=== PATIENT | male | born 1960 | race Caucasian/White ===

== ENCOUNTER 2017-01-22 10:38 | Observation (INO) | payer OTHER ==
[2017-01-22] MEDS ORDERED: NS 1,000 ML IV ONE (10:54)
--- NOTE | 2017-01-22 10:54 | EDPHY ---
H & P Stated Complaint: ETOH Time Seen by Provider: 01/22/17 10:40 HPI/ROS: This patient complains of generalized weakness he also reports lightheadedness and felt that his heart rate was fast at home. He called EMS for transport here and expresses a desire to go to alcohol detox program. He admits drinking a qt of whiskey a day and denies any recent changes in the amount. He has the impression that he is detoxing although he reports his last alcohol intake was around midnight. He is transported here by EMS for further evaluation. He reports mild periumbilical abdominal discomfort associated with nausea and dry heaves. He also reports decreased appetite the past few days. He states the abdominal discomfort is mild in intensity and does not radiate. ROS: Constitutional: No recent fevers or chills. Generalized weakness as above otherwise negative HEENT: No recent URI symptoms. Neuro: No numbness tingling or focal weakness.He denies any headache. No recent head injury. Musculoskeletal: No neck back or extremity pain. Pulmonary: He reports mild chronic dyspnea that he attributes to smoking and a chronic smoker's cough that is unchanged recently. No pleuritic pain. Cardiovascular: No chest pain. Mild lightheadedness as above. GI: He reports dark loose stools recently. : No urinary symptoms. He does report darker urine than usual however. Integumentary: No skin rash Endocrine: No complaints Complete review of symptoms is otherwise negative. Source: Patient Exam Limitations: No limitations - Personal History Current Tetanus/Diphtheria Vaccine: No - Medical/Surgical History Hx Asthma: No Hx Chronic Respiratory Disease: No Hx Diabetes: No Hx Cardiac Disease: Yes Hx Renal Disease: No Hx Cirrhosis: No Hx Alcoholism: Yes Hx HIV/AIDS: No Hx Splenectomy or Spleen Trauma: No Other PMH: HTN, ETOH, CVA , hypercholesterolemia - Family History Significant Family History: Heart disease - Social History Smoking Status: Heavy smoker Alcohol Use: Heavy (1 qt of whiskey a day) Drug Use: None - Physical Exam Exam: General Appearance: Alert, no distress. Eyes: Pupils equal and round no pallor or injection. ENT, Mouth: Mucous membranes moist. Positive alcohol halitosis Respiratory: There are no retractions, lungs are clear to auscultation. Cardiovascular: Regular rate and rhythm. Gastrointestinal: Abdomen is soft and nontender, no masses, bowel sounds normal. Back: No CVA tenderness Neurological: GCS 15 with no focal deficits appreciated. Skin: Warm and dry, no rashes. Musculoskeletal: Neck is supple nontender. Extremities are symmetrical, full range of motion. Psychiatric: Mood and affect normal DIFFERENTIAL DIAGNOSIS: After history and physical exam differential diagnosis was considered for dehydration, alcohol intoxication, metabolic disarray, hepatitis, pancreatitis, coronary syndrome/AK, dysrhythmia Constitutional: Initial Vital Signs Temperature (C) 37.0 C 01/22/17 10:38 Heart Rate 86 01/22/17 10:38 Respiratory Rate 18 01/22/17 10:38 Blood Pressure 107/75 01/22/17 10:38 O2 Sat (%) 92 01/22/17 10:38 O2 Delivery Mode Room Air Allergies/Adverse Reactions: No Known Allergies Allergy (Unverified 01/22/17 10:47) Home Medications: Medication Instructions Recorded Amlodipine Besylate 01/22/17 HCTZ (*) 01/22/17 Labetalol HCl 01/22/17 Medical Decision Making - Diagnostics EKG Interpretation: 12 lead EKG performed at 11:00 a.m. indication generalized weakness with risk factors for coronary disease rule out AK reveals sinus rhythm at 81 Intervals: Normal with exception of prolonged QTC of [address] [place]: Normal throughout ST segments are notable for T-wave inversions in leads V2 in V3 Overall assessment sinus rhythm, prolonged QT, anterior T-wave abnormalities- cannot rule out anterior ischemia. When compared to an old EKG faxed from [facility] dated 01/07/[address] depression is a new finding. Repeat EKG performed at 11:46 a.m. indication-status post nitropaste evaluate for interval change Sinus rhythm at 77 Intervals: Normal exception of a persistently prolonged QTC at [address] segments-persistent anterior ST depression Overall assessment sinus rhythm no significant interval change from initial EKG. ED Course/Re-evaluation: IV normal saline bolus Alcohol breathalyzer was 0.31 Given his coronary disease risk factors and abnormal EKG, patient is placed on a monitor and given aspirin 324. We have no old EKG for comparison here but will contact [facility] in attempt to be acquired an old EKG for comparison 12 lead EKG from [facility] arrived by fax at 11:25 a.m. and review of this EKG dated 01/07/2014 reveals normal sinus rhythm with normal ST segments including the anterior leads and no ST depression. Given this finding along with the patient's risk factors and current weakness, patient is treated with 0.5 inch nitropaste the plan for admission for potential cardiac ischemia as cause of his current symptoms. A review of his labs reveals minimal macrocytic anemia consistent with alcohol abuse, mild elevation of his LFTs consistent with alcoholic hepatitis, normal lipase, normal troponin Discussion: Patient with a HEART score of [address] depression on EKG, age and cardiac risk factors (smoker, high chol, + fam hx) warranting admission for further evaluation of his generalized weakness, feeling of racing heart lightheadedness. The patient also has alcohol abuse and intoxication currently. I spoke with Aniyah Hung with the hospitalist groups who accepts this patient for admission to [facility] telemetry to Dr. Fisher A bed is requested 11:57 a.m. The patient remain hemodynamically stable without further complaints except for mild tremor treated with Ativan 1 mg IV. At 1300 EMS to transport the patient to telemetry bed at [facility] for further workup and treatment. - Data Points Laboratory Results: Laboratory Results 01/22/17 10:55 01/22/17 10:55 01/22/17 01/22/17 01/22/17 10:55 10:55 10:55 WBC 6.40 10^3/uL 10^3/uL (3.80-9.50) RBC 4.26 10^6/uL L 10^6/uL (4.40-6.38) Hgb 16.1 g/dL g/dL (13.7-17.5) Hct 43.5 % % (40.0-51.0) MCV 102.1 fL H fL (81.5-99.8) MCH 37.8 pg H pg (27.9-34.1) MCHC 37.0 g/dL H g/dL (32.4-36.7) RDW 13.3 % % (11.5-15.2) Plt Count 135 10^3/uL L 10^3/uL (150-400) MPV 10.1 fL fL (8.7-11.7) Neut % (Auto) 69.8 % % (39.3-74.2) Lymph % (Auto) 20.8 % % (15.0-45.0) [place] % (Auto) 7.0 % % (4.5-13.0) Eos % (Auto) 1.3 % % (0.6-7.6) Baso % (Auto) 0.8 % % (0.3-1.7) Nucleat RBC Rel Count 0.0 % % (0.0-0.2) Absolute Neuts (auto) 4.47 10^3/uL 10^3/uL (1.70-6.50) Absolute Lymphs (auto) 1.33 10^3/uL 10^3/uL (1.00-3.00) Absolute Monos (auto) 0.45 10^3/uL 10^3/uL (0.30-0.80) Absolute Eos (auto) 0.08 10^3/uL 10^3/uL (0.03-0.40) Absolute Basos (auto) 0.05 10^3/uL 10^3/uL (0.02-0.10) Absolute Nucleated RBC 0.00 10^3/uL 10^3/uL (0-0.01) Immature Gran % 0.3 % % (0.0-1.1) Immature Gran # 0.02 10^3/uL 10^3/uL (0.00-0.10) Sodium 136 mEq/L mEq/L (134-144) Potassium 3.5 mEq/L mEq/L (3.5-5.2) Chloride 91 mEq/L L mEq/L (97-110) Carbon Dioxide 20 mEq/l L mEq/l (22-31) Anion Gap 25 mEq/L H mEq/L (8-16) BUN 12 mg/dL mg/dL (7-23) Creatinine 1.1 mg/dL mg/dL (0.7-1.3) Estimated GFR > 60 Glucose 72 mg/dL mg/dL (70-100) Calcium 8.4 mg/dL L mg/dL (8.5-10.4) Total Bilirubin 2.5 mg/dL H mg/dL (0.1-1.4) Conjugated Bilirubin 1.6 mg/dL H mg/dL (0.0-0.5) Unconjugated Bilirubin 0.9 mg/dL mg/dL (0.0-1.1) AST 234 IU/L H IU/L (17-59) ALT 154 IU/L H IU/L (21-72) Alkaline Phosphatase 67 IU/L IU/L (38-126) Troponin I 0.019 ng/mL ng/mL (0.000-0.034) Total Protein 6.7 g/dL g/dL (6.3-8.2) Albumin 4.2 g/dL g/dL (3.5-5.0) Lipase 53 IU/L IU/L (23-300) Medications Given: Discontinued Medications Aspirin (Aspirin) 324 mg PO EDNOW ONE Stop: 01/22/17 11:04 Last Admin: 01/22/17 11:09 Dose: 324 mg Sodium Chloride (Ns) 1,000 mls @ 0 mls/hr IV EDNOW ONE; Wide Open PRN Reason: Protocol Stop: 01/22/17 10:55 Last Admin: 01/22/17 11:09 Dose: 1,000 mls Lorazepam (Ativan Injection) 1 mg IVP EDNOW ONE Stop: 01/22/17 12:00 Last Admin: 01/22/17 12:02 Dose: 1 mg Nitroglycerin (Nitro-Bid 2%) 0.5 inch TP EDNOW ONE Stop: 01/22/17 11:25 Last Admin: 01/22/17 11:28 Dose: 0.5 inch Departure - Departure Disposition: [facility] Inpatient Acute Clinical Impression: Generalized weakness, EKG abnormality, Alcohol abuse Alcohol intoxication Qualifiers: Complication of substance-induced condition: uncomplicated Qualified Code(s): F10.920 - Alcohol use, unspecified with intoxication, uncomplicated Alcoholic hepatitis Qualifiers: Ascites presence: without ascites Qualified Code(s): K70.10 - Alcoholic hepatitis without ascites Condition: Good Referrals: Patient,NotPresent [Primary Care Provider] - As per Instructions
[2017-01-22 10:59] LABS: % IMMATURE GRANULYOCYTES 0.3 % (0.0-1.1); ABSOLUTE IMMATURE GRANULOCYTES 0.02 10^3/uL (0.00-0.10); ADD DIFF? NO; ADD MORPH? NO; ADD SCAN? NO; ATYPICAL LYMPHOCYTE FLAG 0 (0-99); FRAGMENT RBC FLAG 0 (0-99); HEMATOCRIT 43.5 % (40.0-51.0); HEMOGLOBIN 16.1 g/dL (13.7-17.5); LEFT SHIFT FLG 0 (0-99); LIPEMIA HEMOLYSIS FLAG 90 (0-99); MEAN CELL HEMOGLOBIN 37.8 pg (27.9-34.1); MEAN CELL VOLUME 102.1 fL (81.5-99.8); MEAN PLATELET VOLUME 10.1 fL (8.7-11.7); PLATELET CLUMPS FLAG 20 (0-99); PLATELET COUNT 135 10^3/uL (150-400); RED BLOOD CELL COUNT 4.26 10^6/uL (4.40-6.38); RED CELL DISTRIBUTION WIDTH 13.3 % (11.5-15.2)
--- NOTE | 2017-01-22 11:02 | CPEKG ---
Heart Rate: 81 RR Interval: 741 P-R Interval: 156 QRSD Interval: 94 QT Interval: 416 QTC Interval: 483 P [place]: 75 QRS [place]: 63 T Wave [place]: 67 EKG Severity - ABNORMAL ECG - EKG Impression: SINUS RHYTHM EKG Impression: LOW VOLTAGE IN FRONTAL LEADS EKG Impression: NONSPECIFIC T ABNORMALITIES, ANTERIOR LEADS EKG Impression: BORDERLINE PROLONGED QT INTERVAL Electronically Signed By: Ervin Schmitt 22-Jan-2017 11:05:57
[2017-01-22] MEDS ORDERED: ASPIRIN 81 MG CHEWABLE TAB PO ONE (11:03)
[2017-01-22 11:15] LABS: ALANINE AMINOTRANSFERASE 154 IU/L (21-72); ALBUMIN 4.2 g/dL (3.5-5.0); ALKALINE PHOSPHATASE 67 IU/L (38-126); ANION GAP 25 mEq/L (8-16); ASPARTATE AMINOTRANSFERASE 234 IU/L (17-59); BILIRUBIN,TOTAL 2.5 mg/dL (0.1-1.4); CALCIUM 8.4 mg/dL (8.5-10.4); CARBON DIOXIDE 20 mEq/l (22-31); CHLORIDE 91 mEq/L (97-110); CREATININE 1.1 mg/dL (0.7-1.3); GLOMERULAR FILTRATION RATE > 60; GLUCOSE 72 mg/dL (70-100); POTASSIUM 3.5 mEq/L (3.5-5.2); SODIUM 136 mEq/L (134-144); TOTAL PROTEIN 6.7 g/dL (6.3-8.2)
[2017-01-22 11:22] LABS: BILIRUBIN-CONJUGATED 1.6 mg/dL (0.0-0.5); BILIRUBIN-UNCONJUGATED 0.9 mg/dL (0.0-1.1)
[2017-01-22] MEDS ORDERED: NITROGLYCERIN 2% 1 GM PACKET TP ONE (11:24)
--- NOTE | 2017-01-22 11:49 | CPEKG ---
Heart Rate: 77 RR Interval: 779 P-R Interval: 160 QRSD Interval: 94 QT Interval: 440 QTC Interval: 499 P [place]: 73 QRS [place]: 51 T Wave [place]: 59 EKG Severity - ABNORMAL ECG - EKG Impression: SINUS RHYTHM EKG Impression: NONSPECIFIC T ABNORMALITIES, ANTERIOR LEADS EKG Impression: BORDERLINE PROLONGED QT INTERVAL Electronically Signed By: Jaya Pichardo 24-Jan-2017 09:09:21
[2017-01-22] MEDS ORDERED: LORazepam 2 MG/ML INJ IVP ONE (11:59)
[2017-01-22] MEDS ORDERED: NICOTINE 21 MG/24 HR PATCH TD PRN (14:33)
[2017-01-22] MEDS ORDERED: ACETAMINOPHEN 500 MG TAB PO PRN (14:37)
[2017-01-22] MEDS ORDERED: ONDANSETRON 4 MG/2 ML VIAL IVP PRN (14:37)
[2017-01-22] MEDS ORDERED: PROMETHAZINE HCL 25 MG/ML INJ IVP PRN (14:37)
[2017-01-22] MEDS ORDERED: NS 1,000 ML IV SCH (14:45)
[2017-01-22] MEDS: LORazepam 2 MG/ML INJ IVP PRN (14:51)
--- NOTE | 2017-01-22 15:30 | GHP ---
[f rep st] HISTORY AND PHYSICAL DATE OF ADMISSION: 01/22/2017 CHIEF COMPLAINT: Dizziness and inability to walk, alcohol withdrawal, EKG changes. HISTORY OF PRESENT ILLNESS: The patient is a 56-year-old male, who drinks heavily, 1 quart of whiskey per day for the last 2 years. He normally stops drinking around midnight every night and wakes up in the morning and has withdrawal by 10 a.m. already, but he does go to work, gets through the day at work, and buys another quart of whiskey on his way home from work and drinks it until late night. He woke up this morning, and his tremors were much worse than normal. He felt very dizzy, and he could not walk. He overall has not been doing well lately. He has recently had a 25 pounds unintentional weight loss. He has had minimal oral intake for the last couple of days, because he does not have any appetite, and every time he prepares food, it just suddenly looks unappealing and he does not eat it. He has had chronic diarrhea for the last couple of years, and has never had a GI workup or colonoscopy. He has daily chest tightness, but this is also associated with chest congestion and daily dry heaving. PAST MEDICAL HISTORY: 1. Hypertension. 2. Hyperlipidemia. 3. History of stroke with residual speech deficits. MEDICATIONS: Please see computer record for full detailed list. ALLERGIES: No known drug allergies, but he is statin intolerant. SOCIAL HISTORY: Smokes 1 pack of tobacco per day. Drinks 1 quart of whiskey per day and has for the last 2 years. He lives alone. 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 REVIEW OF SYSTEMS: Complete review of systems obtained. Review of systems is negative regarding constitutional, HEENT, GI, pulmonary, cardiovascular, , hematology, skin, musculoskeletal, endocrine, psych, except for positives and negatives as noted in HPI. FAMILY HISTORY: Mother had an WA in her 50s and survived until a massive cardiac arrest killed her at age 75. Father was a heavy smoker and of COPD. PHYSICAL EXAMINATION: GENERAL: Well-developed, well-nourished male, in no acute distress. VITAL SIGNS: Temperature 37.0, pulse 76, blood pressure 136/88, saturating 96% on room air. EYES: Normal conjunctivae. Pupils equal, round and react to light. ENT: Normal ears and nose. Hearing intact. Normal lips and teeth. Oropharynx moist. NECK: Trachea midline. No thyromegaly. CHEST: Normal respiratory effort. LUNGS: Clear to auscultation bilaterally. CARDIOVASCULAR: Regular rate and rhythm. No murmur. No lower extremity edema. ABDOMEN: Soft, nontender. No hepatosplenomegaly. SKIN: Warm, dry, intact, without rash. MUSCULOSKELETAL: No cyanosis or clubbing. Strength 5/5 upper and lower extremities. NEUROLOGIC: Cranial nerves intact. Normal sensation to light touch. PSYCH: Alert and oriented x3. Normal affect. Normal judgment and insight. Normal memory. LABORATORY DATA: White count 6.4, hematocrit 43.5, platelets 135, MCV is 102. Sodium 136, potassium 3.5, chloride 91, bicarb 20, BUN 12, creatinine 1.1, glucose 72. Total bili 2.5, AST 234, ALT 154. Troponin is negative. Lipase is 53. EKG viewed by me, my personal interpretation is deep anterior T-wave inversions. ASSESSMENT/PLAN: 1. Alcohol withdrawal. We will start him on IV thiamine, as he has had very poor oral intake recently. We will place him on a CIPA protocol with p.r.n. benzodiazepines. 2. EKG changes with daily chest tightness. His troponin is negative. He has multiple risk factors, including hypertension, hyperlipidemia, family history, and tobacco abuse. We will follow serial troponins and EKGs. If they remain unchanged, we will schedule for stress test in the morning, as long as his alcohol withdrawal does not become severe. 3. Increased LFTs. The pattern is very consistent with his alcohol abuse. We will check an abdominal ultrasound and screen him for hepatitis C. 4. Unintentional weight loss. I suspect this is due to decreased oral intake, as a result of his heavy alcohol use. We will also check a chest x-ray and a TSH. He also reports daily nausea, vomiting and diarrhea, and has never had a GI workup, including age appropriate colon cancer screening. This could be considered when he is otherwise medically stable. 5. Dizziness and weakness. This became acutely worse this morning. It sounds like he woke up with these symptoms, and he subsequently decided to quit drinking as these symptoms were scaring him, and so therefore, potentially something acute going on. I will check a head CT. He does have a history of a previous stroke and does not appear to be on a daily aspirin or statin drug, which does put him at risk for recurrence. Could consider an MRI, depending on how he otherwise does clinically. 6. Tobacco dependence. We will place on nicotine patch. 7. Hypertension. Continue his usual Norvasc, hydrochlorothiazide, and labetalol. CODE STATUS: Full. ADMISSION STATUS: We will admit to observation, although, he has so much going on, unless everything comes together nicely by tomorrow morning, high risk for needing inpatient stay. DVT PROPHYLAXIS: He is high risk, we will place him on subcu Lovenox. /[id number]/MODL MTDD
[2017-01-22] MEDS: THIAMINE HCL 500 MG in NS 100 ML IV SCH (16:19)
[2017-01-22] MEDS: chlordiazePOXIDE 25 MG CAP PO PRN ×2 (19:44→20:43)
[2017-01-22] MEDS: LABETALOL HCL 200 MG TAB PO SCH (19:45)
[2017-01-22] MEDS: ZOLPIDEM TARTRATE 5 MG TAB PO PRN (20:42)
[2017-01-23] MEDS: LORazepam 2 MG/ML INJ IVP PRN ×5 (03:38→20:39)
[2017-01-23 04:03] LABS: % IMMATURE GRANULYOCYTES 0.4 % (0.0-1.1); ABSOLUTE IMMATURE GRANULOCYTES 0.02 10^3/uL (0.00-0.10); ABSOLUTE NRBC COUNT 0.04 10^3/uL (0-0.01); ADD DIFF? NO; ADD MORPH? NO; ADD SCAN? NO; ATYPICAL LYMPHOCYTE FLAG 0 (0-99); FRAGMENT RBC FLAG 0 (0-99); HEMATOCRIT 36.8 % (40.0-51.0); HEMOGLOBIN 13.2 g/dL (13.7-17.5); LEFT SHIFT FLG 0 (0-99); LIPEMIA HEMOLYSIS FLAG 90 (0-99); MEAN CELL HEMOGLOBIN 37.6 pg (27.9-34.1); MEAN CELL HEMOGLOBIN CONCENTR. 35.9 g/dL (32.4-36.7); MEAN CELL VOLUME 104.8 fL (81.5-99.8); MEAN PLATELET VOLUME 10.5 fL (8.7-11.7); NRBC-AUTO% 0.9 % (0.0-0.2); PLATELET CLUMPS FLAG 0 (0-99); PLATELET COUNT 87 10^3/uL (150-400); RED BLOOD CELL COUNT 3.51 10^6/uL (4.40-6.38); RED CELL DISTRIBUTION WIDTH 13.2 % (11.5-15.2)
[2017-01-23 04:11] LABS: INR 0.93 (0.83-1.16); PROTIME(PATIENT) 12.4 SEC (12.0-15.0)
[2017-01-23 04:25] LABS: ANION GAP 12 mEq/L (8-16); CALCIUM 7.4 mg/dL (8.5-10.4); CARBON DIOXIDE 26 mEq/l (22-31); CHLORIDE 97 mEq/L (97-110); CHOLESTEROL 179 mg/dL (140-220); CHOLESTEROL/HDL RATIO 1.81 RATIO (1.00-4.97); CREATININE 1.1 mg/dL (0.7-1.3); GLOMERULAR FILTRATION RATE > 60; GLUCOSE 88 mg/dL (70-100); HIGH DENSITY LIPOPROTEIN 99 mg/dL (40-65); LDL/HDL RATIO 0.61 RATIO (1.00-3.64); LOW DENSITY LIPOPROTEIN 60 mg/dL (80-100); MAGNESIUM 1.2 mg/dL (1.6-2.3); NON-HIGH DENSITY LIPOPROTEIN 80 mg/dL (90-129); SODIUM 135 mEq/L (134-144); TRIGLYCERIDE 100 mg/dL (40-150); VERY LOW DENSITY LIPOPROTEINS 20 mg/dL (8-25)
[2017-01-23 04:29] LABS: TROPONIN I 0.019 ng/mL (0.000-0.034)
[2017-01-23 04:37] LABS: POTASSIUM 2.7 mEq/L (3.5-5.2)
[2017-01-23] MEDS ORDERED: PROTOCOL POTASSIUM 1 DOSE MISC PRN (05:04)
[2017-01-23] MEDS ORDERED: POTASSIUM CL 20 MEQ TAB PO ONE (05:17)
[2017-01-23] MEDS ORDERED: POTASSIUM CL 10 MEQ TAB PO ONE (07:11)
[2017-01-23] MEDS ORDERED: PROTOCOL MAGNESIUM 1 DOSE IV PRN (07:14)
[2017-01-23] MEDS ORDERED: PROTOCOL K PHOSPHATE 1 DOSE IV PRN (07:14)
[2017-01-23] MEDS: chlordiazePOXIDE 25 MG CAP PO PRN (08:14)
[2017-01-23] MEDS: ASPIRIN EC 81 MG TAB PO SCH (08:14)
[2017-01-23] MEDS ORDERED: MAGNESIUM SULF 2 GM/WATER 50 ML IV ONE (08:19)
--- NOTE | 2017-01-23 08:43 | CPEKG ---
Heart Rate: 85 RR Interval: 706 P-R Interval: 156 QRSD Interval: 90 QT Interval: 408 QTC Interval: 486 P [place]: 67 QRS [place]: 48 T Wave [place]: 46 EKG Severity - BORDERLINE ECG - EKG Impression: SINUS RHYTHM EKG Impression: BORDERLINE PROLONGED QT INTERVAL Electronically Signed By: Audra Mosley 23-Jan-2017 08:52:13
[2017-01-23] MEDS ORDERED: REGADENOSON 0.4 MG/5 ML SYR IVP ONE (09:47)
--- NOTE | 2017-01-23 09:50 | ECHO ---
[id number] + + [address] : : [place] [address] : : [phone] + Adult Echocardiographic Report + -------+ :Name: KEIKO SANTOS FStudy Date: 01/23/2017 08:13 AM : : Hospital Admission Number: [id number] Locati on: 206: :: 1960 Gender: Male Height: 69 in : :Age: 56 yrs Race: WH Weight: 201 lb : :Reason For Study: Eval LV Fx : : BSA: 2.1 meter s2 : :History: Dizziness, EKG Changes : + -------+ MMode/2D Measurements & Calculations IVSd: 0.95 cm LVIDd: 4.4 cm FS: 39.4 % Ao root diam: 3.4 cm LVPWd: 1.2 cm LVIDs: 2.6 cm EDV(Teich): 86.5 ml ACS: 2.3 cm ESV(Teich): 25.8 ml EF(Teich): 70.2 % Normal Measurement Values: + + :LVIDd (3.5-5.7cm) IVSd (0.6-1.1cm) LVPWd (0.6-1.1cm) Aortic Root (2.0-3.7cm)Left Atrium (1.5-4.0cm): :LV Vol(d) (76-115ml) LV Vol(s) (29-48ml) [place] Fraction (50-65%)PV Masoud (0.6- 1.2m/s) TV Masoud (0.4-1.0m/s) : :MV E [place] (0.8-1.0m/s)MV A [place] (0.3-1.0m/s)LVOT [place]oud (0.7-1.2m/s) Asc Ao Masoud ( 0.9-1.8m/s) : + + Doppler Measurements & Calculations MV E max masoud: Ao V2 max: LV V1 max: PA V2 max: 53.3 cm/sec 92.3 cm/sec 74.0 cm/sec 88.2 cm/sec MV A max masoud: Ao max PG: LV V1 max PG: PA max P.0 cm/sec 3.4 mmHg 2.2 mmHg 3.1 mmHg MV E/A: 0.72 Left Ventricle The left ventricle is normal in size. There is normal left ventricular wall thickness. The left ventricular ejection fraction is normal. There is Doppler evidence for diastolic dysfunction. Ejection Fraction = 70%. The left ventricular wall motion is normal. Right Ventricle The right ventricle is normal in size and function. Atria The left atrial size is normal. Right atrial size is normal. Mitral Valve The mitral valve is normal in structure and function. There is no mitral valve stenosis. There is no mitral regurgitation noted. Tricuspid Valve Normal tricuspid valve. No tricuspid regurgitation. Aortic Valve The aortic valve is normal in structure and function. There is no aortic stenosis. There is no aortic insufficiency. Pulmonic Valve The pulmonic valve is normal in structure and function. There is no pulmonic valvular regurgitation. Great Vessels The aortic root is normal size. Pericardium/Pleural There is no pericardial effusion. Conclusion A complete two-dimensional transthoracic echocardiogram was performed (2D, M-mode, Doppler and color flow Doppler). The left ventricular ejection fraction is normal. There is Doppler evidence for diastolic dysfunction. Ejection Fraction = 70%. The left ventricular wall motion is normal. The left atrial size is normal. Normal tricuspid valve The aortic valve is normal in structure and function. There is no pericardial effusion. Final Reading Physician: Kade Iglesias signed on 01/23/2017 09:49 AM Ordering Physician: Michelle Fisher Performed By: Benja Dodson, CS
--- NOTE | 2017-01-23 10:42 | CPR ---
[f rep st] NONINVASIVE CARDIAC PROCEDURE REPORT DATE OF PROCEDURE: 01/23/2017 PROCEDURE PERFORMED: Nuclear Lexiscan stress test. REASON FOR TEST: Chest pain. RESTING: EKG showed a regular sinus rhythm with a ventricular rate of 82. Nonspecific T-wave abnormalities, anterior leads. QTc 496. Resting blood pressure 122/82, heart rate 82, oxygen saturation 97%. He reported having no chest pain prior to test. STRESS: Lexiscan was injected rapidly, followed by saline flush. Cardiolite was then injected, followed by saline flush, per protocol. Lexiscan injected at 10:03:40. Max heart rate 97. He felt slightly short of breath during the test. No EKG changes. RECOVERY: He spontaneously recovered. Resting blood pressure 112/72. Resting heart rate 96. Exercise heart rate 97. Oxygen saturation 97. He continued to feel panic post procedure. He will be given a dose of Ativan 1 mg prior to post imaging pictures by his RN, Georgiana. At this time, he currently is stable. /[id number]/MODL MTDD
[2017-01-23] MEDS: THIAMINE HCL 500 MG in NS 100 ML IV SCH (11:09)
[2017-01-23] MEDS: ENOXAPARIN 40 MG/0.4 ML SYR SC SCH (11:09)
[2017-01-23] MEDS: LABETALOL HCL 200 MG TAB PO SCH ×2 (11:10→20:39)
[2017-01-23] MEDS: HYDROCHLOROTHIAZIDE 25 MG TAB PO SCH (11:10)
[2017-01-23] MEDS ORDERED: K PHOS 10 MMOL in D5W 250 ML IV ONE (12:00)
[2017-01-23] MEDS: chlordiazePOXIDE 25 MG CAP PO SCH ×3 (12:29→20:39)
--- NOTE | 2017-01-23 12:45 | ASMTCMCOM ---
CM Note CM Note Notes: Per H&P, pt admitted with weakness, weight loss and is on CIWA protocol. Pt has 2 yr hx of daily quart of whiskey. Pt is currently undergoing testing. Pt's DC needs are TBD. Date Signed: 01/23/2017 12:45 PM Electronically Signed By:Bonny Gomez LCSW
--- NOTE | 2017-01-23 15:28 | HOSPPROG ---
Hospitalist Progress Note Assessment/Plan: # acute alcohol withdrawal- daily consumption approximately a qt of whiskey a day- patient tremulous on examination Telemetry(personally reviewed and interpreted) sinus tachycardia in the 90s Patient expressing wishes for future cessation - continue CIWA - continue IV thiamin - starting scheduled Librium three times daily - discuss with case management will provide resources for disposition # chest pain- patient ruled out overnight with serial troponins EKGs - cardiac stress testing today # weakness- suspect multifactorial including poor p.o. intake and alcohol abuse - TSH abnormal > 20 - send T3-T4 - regular diet - PT OT - treat underlying withdrawal # hypophosphatemia/hypokalemia (2.7 this am)/hypo magnesemia- presumed secondary to poor p.o. intake with alcohol abuse - repletion with protocols # prophylaxis Lovenox # diet regular # disposition greater than 2 midnights as the patient requires treatment for alcohol withdrawal and therapy evaluations for safe disposition I have discussed the case with case management- suspect if the patient is stable tomorrow will need resources including [facility] for outpatient treatment of withdrawal and cessation Subjective: Feels very weak Objective: Vital Signs Temp Pulse Resp BP Pulse Ox 37.1 C 91 22 H 127/90 H 89 L 01/23/17 12:00 01/23/17 12:00 01/23/17 12:00 01/23/17 12:00 01/23/17 14:00 Microbiology 01/23/17 07:45 Gastrointestinal Tract Panel (PCR) - Final Stool Clostridium Difficile Detected Laboratory Results 01/23/17 03:33 01/23/17 03:33 01/22/17 01/23/17 01/24/17 05:59 05:59 05:59 Intake Total 2240 Output Total 325 Balance 2240 -325 PT 12.4 SEC (12.0-15.0) 01/23/17 03:33 INR 0.93 (0.83-1.16) 01/23/17 03:33 - Physical Exam Constitutional: chronically ill appearing, unkempt Eyes: anicteric sclera Ears, Nose, Mouth, Throat: dry mucous membranes Cardiovascular: regular rate and rhythym, tachycardia Respiratory: no respiratory distress Gastrointestinal: normoactive bowel sounds, soft, non-tender abdomen Genitourinary: no bladder fullness Skin: warm Musculoskeletal: No asymmetric calves Neurologic: AAOx3 Psychiatric: depressed, No encephalopathic Lymph, Heme, Immunologic: no cervical LAD ICD10 Worksheet Patient Problems: Problems Problem Status Onset Alcohol abuse Acute Alcohol intoxication Acute Alcoholic hepatitis Acute Clostridium difficile infection Acute ~01/23/17 EKG abnormality Acute Generalized weakness Acute
[2017-01-23 18:56] LABS: POTASSIUM 5.3 mEq/L (3.5-5.2)
[2017-01-23] MEDS: ZOLPIDEM TARTRATE 5 MG TAB PO PRN (19:50)
[2017-01-23] MEDS ORDERED: THIAMINE HCL 500 MG in NS 100 ML IV SCH (23:34)
[2017-01-24] MEDS: LORazepam 2 MG/ML INJ IVP PRN ×3 (00:12→09:12)
[2017-01-24 04:33] LABS: % IMMATURE GRANULYOCYTES 0.5 % (0.0-1.1); ABSOLUTE IMMATURE GRANULOCYTES 0.02 10^3/uL (0.00-0.10); ADD DIFF? NO; ADD MORPH? NO; ADD SCAN? NO; ATYPICAL LYMPHOCYTE FLAG 0 (0-99); FRAGMENT RBC FLAG 0 (0-99); HEMOGLOBIN 13.1 g/dL (13.7-17.5); LEFT SHIFT FLG 0 (0-99); LIPEMIA HEMOLYSIS FLAG 90 (0-99); MEAN CELL HEMOGLOBIN CONCENTR. 36.4 g/dL (32.4-36.7); MEAN CELL VOLUME 104.3 fL (81.5-99.8); MEAN PLATELET VOLUME 10.7 fL (8.7-11.7); PLATELET CLUMPS FLAG 0 (0-99); PLATELET COUNT 79 10^3/uL (150-400); RED BLOOD CELL COUNT 3.45 10^6/uL (4.40-6.38); RED CELL DISTRIBUTION WIDTH 13.2 % (11.5-15.2)
[2017-01-24 04:54] LABS: ANION GAP 9 mEq/L (8-16); CALCIUM 7.7 mg/dL (8.5-10.4); CARBON DIOXIDE 26 mEq/l (22-31); CHLORIDE 100 mEq/L (97-110); CREATININE 0.8 mg/dL (0.7-1.3); GLOMERULAR FILTRATION RATE > 60; GLUCOSE 97 mg/dL (70-100); MAGNESIUM 1.2 mg/dL (1.6-2.3); POTASSIUM 2.8 mEq/L (3.5-5.2); SODIUM 135 mEq/L (134-144)
[2017-01-24 05:25] LABS: T3 (TRIIODOTHYRONINE) TOTAL 0.795 ng/mL (0.970-1.690)
[2017-01-24] MEDS ORDERED: POTASSIUM CL 10 MEQ TAB PO ONE (07:27)
[2017-01-24] MEDS ORDERED: MAGNESIUM SULF 2 GM/WATER 50 ML IV ONE (07:28)
[2017-01-24 07:46] VITALS: RESP 24; TEMP 97.8; O2SAT 89
[2017-01-24] MEDS ORDERED: THIAMINE HCL 100 MG TAB PO SCH (09:00)
[2017-01-24] MEDS: chlordiazePOXIDE 25 MG CAP PO SCH (09:11)
[2017-01-24] MEDS: HYDROCHLOROTHIAZIDE 25 MG TAB PO SCH (09:11)
[2017-01-24] MEDS: LABETALOL HCL 200 MG TAB PO SCH (09:11)
[2017-01-24] MEDS: ASPIRIN EC 81 MG TAB PO SCH (09:12)
[2017-01-24 09:15] VITALS: BP 107/82; PULSE 97
[2017-01-24] MEDS: ENOXAPARIN 40 MG/0.4 ML SYR SC SCH (09:21)
--- NOTE | 2017-01-24 10:23 | ASMTCMCOM ---
CM Note CM Note Notes: 01/24/2017 Case Management Note Pt medically cleared to d/c. Case Management provided information to AA meetings in [place] and surrounding areas. In addition provided contact information for [facility] to [facility]. Patient d/c home with follow up as instructed by . Date Signed: 01/24/2017 10:23 AM Electronically Signed By:Norma Flannery RN
[2017-01-24] MEDS: VANCOMYCIN 125 MG/2.5 ML UDL PO SCH ×2 (10:44→10:56)
[2017-01-24] MEDS ORDERED: K PHOS 20 MMOL in D5W 250 ML IV ONE (12:00)
--- NOTE | 2017-01-24 17:08 | ASDISCHSUM ---
Discharge Information Plan Status:Home with No Needs Medically Cleared to Leave:01/24/2017 Discharge Date:01/24/2017 12:57 PM CM D/C Disposition:Home, Routine, Self-Care ADT D/C Disposition:Home, Routine, Self-Care Projected Discharge Date:01/24/2017 12:57 PM Transportation at D/C:Family Discharge Delay Reason: Follow-Up Date:01/24/2017 12:57 PM Discharge Slot: Final Diagnosis: Placement Information Patient Contact Information Contact Name:RAGINI Relationship: Address: Home Phone: Work Phone: City: Alternate Phone: State/[place] Code: Email: Financial Information Financial Class:HMO and PPO Plans Primary Plan Desc:[employer]ITA [employer] PPO Primary Plan Number:[id number] Secondary Plan Desc: Secondary Plan Number: Assessment Information [facility] CM Progress Note CM Note CM Note Notes: Per H&P, pt admitted with weakness, weight loss and is on CIWA protocol. Pt has 2 yr hx of daily quart of whiskey. Pt is currently undergoing testing. Pt's DC needs are TBD. Date Signed: 01/23/2017 12:45 PM Electronically Signed By:Bonny Gomez LCSW [facility] CM Progress Note CM Note CM Note Notes: 01/24/2017 Case Management Note Pt medically cleared to d/c. Case Management provided information to AA meetings in [place] and surrounding areas. In addition provided contact information for [facility]. Patient d/c home with follow up as instructed by . Date Signed: 01/24/2017 10:23 AM Electronically Signed By:Norma Flannery RN Intervention Information Intervention Type:*Incorrect Registration Date of Service:01/22/2017 02:37 PM Patient Type:Observation Staff Member:SADI Prado, Casie Hours:0.25 Discipline: Severity:1 (0-1 Hours) Comment:Registered inpatient, admit order writ ten for observation status.
--- NOTE | 2017-01-24 21:48 | GDS ---
[f rep st] DISCHARGE SUMMARY DISCHARGE DIAGNOSES: Include. 1. Chest pain thought noncardiac. 2. Alcohol abuse. 3. Acute alcohol withdrawal. 4. Clostridium difficile colitis. 5. Chronic weakness, suspected nutritional deficiencies. 6. Hypophosphatemia. 7. Hypokalemia. 8. Hypomagnesemia. SUMMARY OF HISTORY OF PRESENT ILLNESS: This is a 56-year-old male, who presented on 01/22/2017 with complaints of chest pain. For details of the patient's initial presentation, please see the history and physical dated 01/22/2017. CONSULTATIVE SERVICES: None. PROCEDURES: On 01/22/2017, patient had a noncontrast CT of the head that showed underlying atrophy. No acute abnormalities. On 01/22/2017, patient had a transthoracic echocardiogram that showed zandra l LV size and function. On 01/23/2017, patient had a myocardial perfusion scan that showed ejection fraction of 77% with no ischemia or focal wall motion abnormalities. HOSPITAL COURSE BY ISSUE: 1. Chest pain. Patient underwent appropriate risk stratification with normal stress testing. Had r esolution of his symptoms during his hospital stay. 2. Alcohol abuse. The patient extensively consumes alcohol in the outpatient setting, reporting upw ards of a quart of whiskey a day. He did begin withdrawing from alcohol with tremor during his hospi jeronimo stay. He was treated with scheduled Librium without developing tachycardia, hypertension or feve r. He was provided resources for the [facility] as well as AA for ongoing treatment of outpatient withdrawa l and cessation. 3. C difficile colitis. The patient was noted to have diarrhea at presentation. Stool studies were sent and were positive for C diff. He was initiated on oral vancomycin and prescribed a 10-day cour se to complete in the outpatient setting. 4. Electrolyte deficiencies. Based on the patient's history, suspect he is eating little to no food in the outpatient setting when he drinks. We reviewed the importance of a multivitamin and a well r ounded diet. 5. Weakness. Suspected is multifactorial electrolyte abnormalities as well as alcohol abuse and pot entially Wernicke's. The patient was seen by the therapy during his hospital stay. He was cleared f or disposition home, refusing home physical therapy. Recommendations were made for a walker. Inform ation for the [facility] was provided. 6. History of hypertension. Patient remained hypotensive during his hospital stay. After discussin g his use of his antihypertensive medications at home, he reports that no regular physician is follow ing him and prescribing scripts. He is hopping from doctor to doctor. Reports measuring his blood p ressures at home frequently with systolic blood pressures in the 70s. I am discontinuing all blood p ressure medicines at disposition as the patient's blood pressure in the last 24 hours of his hospital stay ranged in the 110s to 90s systolic. I do not think he needs any additional antihypertensive co ntrol at this time. We did recommend he establish with a single PCP who can follow his vital signs a nd electrolytes post disposition. MEDICATIONS AT THE TIME OF TRANSFER: Please reference the med rec printed on 01/24/2017. PENDING STUDIES: At the time of this dictation are none. FOLLOWUP APPOINTMENTS: The patient was provided resources for the [facility] for AA and for primary care pr oviders, as well as information for the [facility]. TIME SPENT: I spent greater than 30 minutes in the planning and coordination of this discharge. /[id number]/MODL
[2017-01-25] MEDS ORDERED: THIAMINE HCL 100 MG TAB PO SCH (09:00)
== END 2017-01-24 12:57 | disposition home or self-care (01) ==
LOC: EDUNIT# → CED 10:38 → INTOOBSV 11:55 → CEDHOLD 11:55 → F2W 13:35
PROVIDERS: ADMIT Internal Medicine; ATTEND Internal Medicine
DX: R07.9 Chest pain, unspecified (principal); F10.239 Alcohol dependence with withdrawal, unspecified; A04.7 Enterocolitis due to Clostridium difficile; R53.1 Weakness; E83.39 Other disorders of phosphorus metabolism; E87.6 Hypokalemia; E83.42 Hypomagnesemia
CPT/HCPCS: 70450; 71020; 74020; 76700; 78452; 93005; 93017; 93306; 97116; 97161; 97166; A9500; G0378; 80053-PO; 82248-PO; 83690-PO; 84480-90; 84484-PO; 85025-PO; 96374; G0472; J1650; J2060; J2785; J3411

== ENCOUNTER 2017-03-19 09:01 | Inpatient (IN) | payer OTHER ==
--- NOTE | 2017-03-19 09:59 | EDPHY ---
H & P Time Seen by Provider: 03/19/17 09:44 HPI/ROS: CHIEF COMPLAINT: Alcohol withdrawal HISTORY OF PRESENT ILLNESS: 57-year-old male presents to the emergency department by ambulance with acute alcohol withdrawal. The patient drinks alcohol daily and last drink last night. He wants to quit drinking. He has never had alcohol withdrawal related seizure. He denies pain in his chest or difficulty breathing. He feels nauseous and has been vomiting. He is also has some diarrhea. No urinary symptoms. No back pain. No reported trauma. He does not abuse any other drugs. REVIEW OF SYSTEMS: Constitutional: No fever, no chills. Eyes: No double or blurry vision. ENT: No sore throat. Respiratory: No cough, no shortness of breath. Cardiac: No chest pain. Gastrointestinal: Vomiting. No abdominal pain or diarrhea. Genitourinary: No dysuria. Musculoskeletal: No neck or back pain. Skin: No rashes. Neurological: No headache. Past Medical/Surgical History: Alcoholism, hypertension, CVA, dyslipidemia Social History: Single, "soon to be homeless " Smoking Status: Heavy smoker Physical Exam: General Appearance: Alert, no distress. Very calm. Mentating normally and answering questions appropriately. He is not tremulous at rest. Eyes: Pupils equal and round. Extraocular motions are all intact. ENT: Mouth: Mucous membranes moist. Respiratory: No wheezing, rhonchi, or rales, lungs are clear to auscultation. Cardiovascular: Regular rate and rhythm. Gastrointestinal: Abdomen is soft and nontender, no masses, no rebound or guarding, bowel sounds normal. Neurological: Alert and oriented x 3, cranial nerves II through XII grossly intact Skin: Warm and dry, no rashes. Musculoskeletal: Nontender to palpate along the cervical, thoracic or lumbar spine. Neck is supple. Extremities: Full range of motion and no peripheral edema. Psychiatric: Patient is oriented X 3, there is no agitation. Constitutional: Initial Vital Signs Temperature (C) 37 C 03/19/17 09:01 Heart Rate 105 H 03/19/17 09:01 Respiratory Rate 18 03/19/17 09:01 Blood Pressure 126/69 H 03/19/17 09:01 O2 Sat (%) 97 03/19/17 09:01 O2 Delivery Mode Room Air Allergies/Adverse Reactions: No Known Allergies Allergy (Unverified 01/22/17 10:47) Home Medications: Medication Instructions Recorded Aspirin EC [Aspirin EC 325 mg (*)] 325 mg PO DAILY PRN 03/19/17 Hydrochlorothiazide [HCTZ (*)] 25 mg PO DAILY 03/19/17 Labetalol HCl [Trandate 200 mg (*)] 200 mg PO BID 03/19/17 Multivitamins [Multivitamin (*)] 1 each PO DAILY 03/19/17 Medical Decision Making ED Course/Re-evaluation: 57-year-old male presents to the emergency department with alcohol withdrawal. He was [facility] and was given 5 mg of Ativan orally. The patient is not tremulous in the emergency department. He feels much more relaxed. He is lethargic in the emergency department. His vital signs are stable. Patient ambulated to the bathroom and had an episode of melena. The patient states that he has had "black stools "for months. Hemoglobin was 10 and hematocrit was 30%. In January his hemoglobin was 13.1 and his hematocrit was 36%. Patient will be admitted to hospitalist with GI bleed. He was given IV Protonix as well as IV normal saline. Differential Diagnosis: Including but not limited to alcohol withdrawal, GI bleed, anemia, dehydration, electrolyte abnormality - Data Points Laboratory Results: Laboratory Results 03/19/17 09:01 03/19/17 09:01 03/19/17 03/19/17 03/19/17 09:01 09:01 09:01 WBC 5.21 10^3/uL 10^3/uL (3.80-9.50) RBC 2.83 10^6/uL L 10^6/uL (4.40-6.38) Hgb 10.2 g/dL L g/dL (13.7-17.5) Hct 30.4 % L % (40.0-51.0) MCV 107.4 fL H fL (81.5-99.8) MCH 36.0 pg H pg (27.9-34.1) MCHC 33.6 g/dL g/dL (32.4-36.7) RDW 14.6 % % (11.5-15.2) Plt Count 133 10^3/uL L 10^3/uL (150-400) MPV 10.1 fL fL (8.7-11.7) Neut % (Auto) 73.4 % % (39.3-74.2) Lymph % (Auto) 17.3 % % (15.0-45.0) Cook % (Auto) 6.9 % % (4.5-13.0) Eos % (Auto) 1.2 % % (0.6-7.6) Baso % (Auto) 0.8 % % (0.3-1.7) Nucleat RBC Rel Count 0.0 % % (0.0-0.2) Absolute Neuts (auto) 3.83 10^3/uL 10^3/uL (1.70-6.50) Absolute Lymphs (auto) 0.90 10^3/uL L 10^3/uL (1.00-3.00) Absolute Monos (auto) 0.36 10^3/uL 10^3/uL (0.30-0.80) Absolute Eos (auto) 0.06 10^3/uL 10^3/uL (0.03-0.40) Absolute Basos (auto) 0.04 10^3/uL 10^3/uL (0.02-0.10) Absolute Nucleated RBC 0.00 10^3/uL 10^3/uL (0-0.01) Immature Gran % 0.4 % % (0.0-1.1) Immature Gran # 0.02 10^3/uL 10^3/uL (0.00-0.10) PT 13.5 SEC SEC (12.0-15.0) INR 1.04 (0.83-1.16) APTT 27.1 SEC SEC (23.0-38.0) Sodium 140 mEq/L mEq/L (134-144) Potassium 4.3 mEq/L mEq/L (3.5-5.2) Chloride 102 mEq/L mEq/L (97-110) Carbon Dioxide 16 mEq/l L mEq/l (22-31) Anion Gap 22 mEq/L H mEq/L (8-16) BUN 12 mg/dL mg/dL (7-23) Creatinine 1.0 mg/dL mg/dL (0.7-1.3) Estimated GFR > 60 Glucose 108 mg/dL H mg/dL (70-100) Calcium 8.0 mg/dL L mg/dL (8.5-10.4) Medications Given: Discontinued Medications Sodium Chloride (Ns) 1,000 mls @ 200 mls/hr IV CONT PAULINO Stop: 03/19/17 16:59 Last Admin: 03/19/17 13:23 Dose: 1,000 mls Pantoprazole Sodium (Protonix) 40 mg IVP EDNOW ONE Stop: 03/19/17 10:38 Last Admin: 03/19/17 11:19 Dose: 40 mg Departure - Departure Disposition: [facility] Acute Clinical Impression: Alcohol withdrawal Qualifiers: Complication of substance-induced condition: uncomplicated Qualified Code(s): F10.230 - Alcohol dependence with withdrawal, uncomplicated GI bleed Qualifiers: GI bleed type/associated pathology: melena Qualified Code(s): K92.1 - Melena Condition: Fair
[2017-03-19 10:23] LABS: % IMMATURE GRANULYOCYTES 0.4 % (0.0-1.1); ABSOLUTE IMMATURE GRANULOCYTES 0.02 10^3/uL (0.00-0.10); ADD DIFF? NO; ADD MORPH? NO; ADD SCAN? NO; ATYPICAL LYMPHOCYTE FLAG 0 (0-99); FRAGMENT RBC FLAG 0 (0-99); HEMATOCRIT 30.4 % (40.0-51.0); HEMOGLOBIN 10.2 g/dL (13.7-17.5); LEFT SHIFT FLG 0 (0-99); LIPEMIA HEMOLYSIS FLAG 80 (0-99); MEAN CELL HEMOGLOBIN CONCENTR. 33.6 g/dL (32.4-36.7); MEAN CELL VOLUME 107.4 fL (81.5-99.8); MEAN PLATELET VOLUME 10.1 fL (8.7-11.7); PLATELET CLUMPS FLAG 0 (0-99); PLATELET COUNT 133 10^3/uL (150-400); RED BLOOD CELL COUNT 2.83 10^6/uL (4.40-6.38); RED CELL DISTRIBUTION WIDTH 14.6 % (11.5-15.2)
[2017-03-19 10:30] LABS: ANION GAP 22 mEq/L (8-16); CARBON DIOXIDE 16 mEq/l (22-31); CHLORIDE 102 mEq/L (97-110); GLOMERULAR FILTRATION RATE > 60; GLUCOSE 108 mg/dL (70-100); POTASSIUM 4.3 mEq/L (3.5-5.2); SODIUM 140 mEq/L (134-144)
[2017-03-19] MEDS ORDERED: PANTOPRAZOLE SODIUM 40 MG VIAL IVP ONE (10:37)
[2017-03-19 10:53] LABS: INR 1.04 (0.83-1.16); PROTIME(PATIENT) 13.5 SEC (12.0-15.0)
[2017-03-19 10:54] LABS: APTT 27.1 SEC (23.0-38.0)
[2017-03-19] MEDS ORDERED: ONDANSETRON DISINTEGRATING 4 MG TAB PO PRN (11:51)
[2017-03-19] MEDS ORDERED: ONDANSETRON 4 MG/2 ML VIAL IVP PRN (11:51)
[2017-03-19] MEDS ORDERED: PROMETHAZINE HCL 25 MG/ML INJ IVP PRN (11:51)
[2017-03-19] MEDS ORDERED: NS 1,000 ML IV SCH (12:00)
[2017-03-19 12:47] LABS: HEMATOCRIT 27.6 % (40.0-51.0); HEMOGLOBIN 9.8 g/dL (13.7-17.5)
--- NOTE | 2017-03-19 13:12 | GHP ---
[f rep st] HISTORY AND PHYSICAL DATE OF ADMISSION: 03/19/2017 HISTORY OF PRESENT ILLNESS: The patient is a 57-year-old gentleman with a history of alcoholism and a recent C difficile, who presents to the hospital from [facility]. He presented himself to [facility] ear ly this morning with alcohol withdrawal. His last drink was yesterday. He had tremors and weakness with nausea and vomiting. At [facility], he received 5 mg of Ativan. He was incontinent of stool. He is referred here for further evaluation. When I speak with the patient, he is fairly somnolent. He endorses some dark stools and vomiting con cerning for coffee-grounds emesis. He says he has not been jaundiced, except when he had hepatitis a s a child. He feels like he is in mild withdrawal. It sounds like he had a period of sobriety follo wing his last discharge, but has returned to drinking. He smokes cigarettes. He does not use any IV drugs. No fever, chills, or cough. He has had multiple episodes of vomiting. REVIEW OF SYSTEMS: Complete 10-point review of systems was conducted and is negative, except as note d in the HPI. PAST MEDICAL HISTORY: 1. C difficile diagnosed at his last admission in January. 2. Alcoholism. 3. Diastolic dysfunction by echocardiogram, without diastolic heart failure. 4. Hypertension. 5. Hyperlipidemia. 6. History of stroke with residual speech deficits. SOCIAL HISTORY: He smokes a pack of cigarettes per day. He drinks upward of a quart of whiskey. He lives alone. 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 FAMILY HISTORY: Mother had an TN in her 50s. ALLERGIES: No known drug allergies. MEDICATIONS: Aspirin, hydrochlorothiazide, multivitamin, labetalol. PHYSICAL EXAMINATION: PRESENTING VITALS: Temp 37, blood pressure 126/69, pulse 105 now 90, breathin g 18 times a minute, 97% on room air. GENERAL: Sedated, but in no acute distress. HEENT: Sclerae anicteric. Oropharynx clear. Mucous membranes are moist. NECK: Supple, without lymphadenopathy or JVD. LUNGS: Clear to auscultation bilaterally. HEART: S1, S2. ABDOMEN: Soft, nontender, nondis tended. LOWER EXTREMITIES: Without edema. Calves are nontender. SKIN: Without rash. NEUROLOGIC: Nonfocal. LABORATORY: Sodium 140, potassium 4.3, chloride 102, bicarb 16, BUN 12, creatinine 1.0, glucose 108, calcium is low at 8. His anion gap is elevated at 22. Coags are normal. White count is 5, hemoglo bin and hematocrit are 10 and 30 (they were 13 and 36 at his last discharge), his MCV is elevated at 107, platelets are 133. IMAGING: There is no imaging. I have reviewed his previous hospitalization as summarized in the HPI . I have discussed the case with KRISTY Tellez, in the emergency department. ASSESSMENT AND PLAN: A 57-year-old gentleman who presents with alcohol withdrawal, possible melena a nd coffee-grounds emesis. 1. Alcohol withdrawal. I put him on alcohol withdrawal protocol. He has a loading dose of 5 mg of Ativan. This is certainly sufficient. He needs no further loading dose. Will follow. 2. Query upper gastrointestinal bleed. The patient does not have cirrhosis. I will add on some LFT s this afternoon. I think we can hold off on octreotide and proceed with b.i.d. PPI. Will check hem atocrit this afternoon and again in the morning. 3. Anion gap metabolic acidosis. I suspect that this is ketosis with not eating and vomiting. Will follow. I will repeat a chem 7 following volume resuscitation. 4. Hypertension. Will continue his labetalol. Hold his hydrochlorothiazide. 5. Alcoholism. Counseling once through this hospitalization. 6. Tobacco. Recommend cessation. 7. Prophylaxis. Contraindication to pharmacologic prophylaxis. Will proceed with SCDs. /[id number]/MODL
--- NOTE | 2017-03-19 15:06 | PDMN ---
Medical Necessity Medical necessity: C/M review: Patient meets INPT crtieria under [facility] Substance related disorders; Acute alcohol withdrawal, possible upper GI bleed, Hgb 10.2, 9.8, Hct 31.4, 27.6, anion gap acidosis, anion gap 22, requiring IV fluids, ongoing CIWA protocol, workup and monitoring, comorbid dark stools and coffee ground emesis prior to this admission, alcoholism, ongoing alcohol abuse , tobacco abuse, hypertension, hyperlipidemia, C. difficile diagnosed during 2016 hospitalization, hx stroke with residual speech deficits. MD anticipates > 2 MN LOS for ongoing med nec for eval and [place] of above.
[2017-03-19 16:58] LABS: ALANINE AMINOTRANSFERASE 82 IU/L (21-72); ALBUMIN 3.1 g/dL (3.5-5.0); ALKALINE PHOSPHATASE 94 IU/L (38-126); ANION GAP 13 mEq/L (8-16); ASPARTATE AMINOTRANSFERASE 129 IU/L (17-59); BILIRUBIN,TOTAL 1.6 mg/dL (0.1-1.4); BILIRUBIN-CONJUGATED 1.1 mg/dL (0.0-0.5); BILIRUBIN-UNCONJUGATED 0.5 mg/dL (0.0-1.1); CALCIUM 7.6 mg/dL (8.5-10.4); CARBON DIOXIDE 21 mEq/l (22-31); CHLORIDE 104 mEq/L (97-110); CREATININE 0.8 mg/dL (0.7-1.3); GLOMERULAR FILTRATION RATE > 60; GLUCOSE 82 mg/dL (70-100); POTASSIUM 3.7 mEq/L (3.5-5.2); SODIUM 138 mEq/L (134-144); TOTAL PROTEIN 5.3 g/dL (6.3-8.2)
[2017-03-19] MEDS: chlordiazePOXIDE 25 MG CAP PO PRN (19:49)
[2017-03-19] MEDS: PANTOPRAZOLE SODIUM 40 MG VIAL IVP SCH (19:50)
[2017-03-19] MEDS: LABETALOL HCL 200 MG TAB PO SCH (20:26)
[2017-03-19] MEDS: LORazepam 2 MG/ML INJ IVP PRN (20:26)
[2017-03-20] MEDS: chlordiazePOXIDE 25 MG CAP PO PRN (01:06)
[2017-03-20] MEDS: LORazepam 2 MG/ML INJ IVP PRN ×4 (04:44→18:25)
[2017-03-20 05:28] LABS: % IMMATURE GRANULYOCYTES 0.5 % (0.0-1.1); ABSOLUTE IMMATURE GRANULOCYTES 0.02 10^3/uL (0.00-0.10); ADD DIFF? NO; ADD MORPH? NO; ADD SCAN? NO; ATYPICAL LYMPHOCYTE FLAG 0 (0-99); FRAGMENT RBC FLAG 0 (0-99); HEMATOCRIT 24.6 % (40.0-51.0); HEMOGLOBIN 8.4 g/dL (13.7-17.5); LEFT SHIFT FLG 0 (0-99); LIPEMIA HEMOLYSIS FLAG 90 (0-99); MEAN CELL HEMOGLOBIN 35.7 pg (27.9-34.1); MEAN CELL HEMOGLOBIN CONCENTR. 34.1 g/dL (32.4-36.7); MEAN CELL VOLUME 104.7 fL (81.5-99.8); MEAN PLATELET VOLUME 10.5 fL (8.7-11.7); PLATELET CLUMPS FLAG 10 (0-99); PLATELET COUNT 84 10^3/uL (150-400); RED BLOOD CELL COUNT 2.35 10^6/uL (4.40-6.38); RED CELL DISTRIBUTION WIDTH 14.3 % (11.5-15.2)
[2017-03-20 05:37] LABS: INR 1.1 (0.83-1.16); PROTIME(PATIENT) 14.1 SEC (12.0-15.0)
[2017-03-20 05:43] LABS: ALANINE AMINOTRANSFERASE 83 IU/L (21-72); ALBUMIN 2.8 g/dL (3.5-5.0); ALKALINE PHOSPHATASE 87 IU/L (38-126); ANION GAP 12 mEq/L (8-16); ASPARTATE AMINOTRANSFERASE 127 IU/L (17-59); BILIRUBIN,TOTAL 1.3 mg/dL (0.1-1.4); CALCIUM 7.8 mg/dL (8.5-10.4); CARBON DIOXIDE 23 mEq/l (22-31); CHLORIDE 106 mEq/L (97-110); CREATININE 0.7 mg/dL (0.7-1.3); GLOMERULAR FILTRATION RATE > 60; GLUCOSE 84 mg/dL (70-100); POTASSIUM 3.5 mEq/L (3.5-5.2); SODIUM 141 mEq/L (134-144); TOTAL PROTEIN 5.2 g/dL (6.3-8.2)
[2017-03-20] MEDS: LABETALOL HCL 200 MG TAB PO SCH ×2 (09:19→20:32)
[2017-03-20] MEDS: PANTOPRAZOLE SODIUM 40 MG VIAL IVP SCH ×2 (09:19→20:32)
--- NOTE | 2017-03-20 16:27 | ASMTCAGE ---
CAGE Do you feel you ought to Answers: Yes cut down on your drinking or drug use? Do people annoy you by Answers: No criticizing your drinking or drug use? Do you feel guilty about Answers: No your drinking or drug use? 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 Date Signed: 03/20/2017 04:27 PM Electronically Signed By:Magdalena Solares LCSW
--- NOTE | 2017-03-20 16:51 | ASMTCMCOM ---
CM Note CM Note Notes: Met with patient regarding his alcoholism and current circumstances. Patient has lost his job with [employer] and has been evicted from his apartment. 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 Patient requests assistance with residential placement. PT has recommended SNF placement for rehab. Referrals made to [facility], [facility], and [facility]. Patient will also need clothes at d/c. He only managed to get a suitcase of clothes from his apartment and it is stored with the [employer]. He has to pick up operator the suitcase by March 26, 2017 and hopes he can figure out how to get his things. Patient's parents are . Patient has 1 sister but has no idea where she is. Patient does not have any close friends and describes himself as a "loner". He has never had services with [facility] and has never applied for SS Disability. He was unaware of [facility]. Patient currently has Matt CASTRO but does not know when it expires since he has lost his job. CM will follow. Date Signed: 03/20/2017 04:50 PM Electronically Signed By:Magdalena Solares LCSW
--- NOTE | 2017-03-20 17:19 | HOSPPROG ---
Hospitalist Progress Note Assessment/Plan: Assessment: 57-year-old male presents with acute alcohol withdrawal Plan: 1. Alcohol withdrawal. Acute, evidenced by tremulousness, encephalopathy, anxiety, known history of alcohol abuse -continue CIWA scoring, withdrawal continues 2. Acute encephalopathy. Evidenced by global brain dysfunction characterized as impaired concentration, confusion, all of which are changes from his baseline , secondary to acute alcohol withdrawal -continue cognitive therapy 3. Acute blood loss anemia. Evidenced by hemoglobin 8.4 with recent report of coffee-ground emesis, likely upper GI bleed in setting of either Evelyn-Boyce tear or esophageal varices -continue monitor hemoglobin level 4. Suspected acute upper gastrointestinal hemorrhage. Reported coffee-ground emesis, likely from varices or Evelyn-Boyce tear, no vomiting overnight -proton pump inhibitor twice a day -continue monitor hemoglobin level -chest x-ray personally interpreted, no evidence of acute aspiration -hold on upper endoscopy, as this may be self limiting issue 5. Transaminitis. Acute, likely secondary to alcohol abuse, continue monitor Diet. Regular Prophylaxis. High risk patient, holding pharm given above, SCDs Code. Full Disposition. Anticipated discharge uncertain this time, requires ongoing withdraw care. Subjective: feels anxious, tremulous Objective: Vital Signs Temp Pulse Resp BP Pulse Ox 36.4 C 87 18 101/63 93 03/20/17 12:00 03/20/17 12:00 03/20/17 12:00 03/20/17 12:00 03/20/17 12:00 Laboratory Results 03/20/17 04:49 03/20/17 04:49 03/19/17 03/20/17 03/21/17 05:59 05:59 05:59 Intake Total 1790 Output Total 300 Balance 1490 PT 14.1 SEC (12.0-15.0) 03/20/17 04:49 INR 1.10 (0.83-1.16) 03/20/17 04:49 - Physical Exam Constitutional: no apparent distress, not in pain, chronically ill appearing, uncomfortable Cardiovascular: tachycardia, No systolic murmur, No irregularly irregular, No edema Respiratory: no respiratory distress, no rales or rhonchi, clear to auscultation , No respiratory distress Gastrointestinal: normoactive bowel sounds, soft, non-tender abdomen, no palpable masses, No distension Neurologic: AAOx3, No weakness (motor 5/5 bilat UE), No asterixes (tremuloous) Psychiatric: anxious, flat affect, other (concentration 0/7), No agitated ICD10 Worksheet Patient Problems: Problems Problem Status Onset Alcohol withdrawal Acute GI bleed Acute Clostridium difficile infection Acute ~01/23/17 Generalized weakness Acute EKG abnormality Acute Alcohol abuse Acute Alcohol intoxication Acute Alcoholic hepatitis Acute
[2017-03-21] MEDS: LORazepam 2 MG/ML INJ IVP PRN ×2 (03:10→09:59)
[2017-03-21 05:17] LABS: % IMMATURE GRANULYOCYTES 0.2 % (0.0-1.1); ABSOLUTE IMMATURE GRANULOCYTES 0.01 10^3/uL (0.00-0.10); ADD DIFF? NO; ADD MORPH? NO; ADD SCAN? NO; ATYPICAL LYMPHOCYTE FLAG 0 (0-99); FRAGMENT RBC FLAG 0 (0-99); HEMOGLOBIN 8.6 g/dL (13.7-17.5); LEFT SHIFT FLG 0 (0-99); LIPEMIA HEMOLYSIS FLAG 90 (0-99); MEAN CELL HEMOGLOBIN 37.1 pg (27.9-34.1); MEAN CELL HEMOGLOBIN CONCENTR. 35.8 g/dL (32.4-36.7); MEAN CELL VOLUME 103.4 fL (81.5-99.8); MEAN PLATELET VOLUME 11.2 fL (8.7-11.7); PLATELET CLUMPS FLAG 0 (0-99); PLATELET COUNT 72 10^3/uL (150-400); RED BLOOD CELL COUNT 2.32 10^6/uL (4.40-6.38); RED CELL DISTRIBUTION WIDTH 14.2 % (11.5-15.2)
[2017-03-21 05:22] LABS: INR 1.09 (0.83-1.16)
[2017-03-21 05:32] LABS: ALANINE AMINOTRANSFERASE 80 IU/L (21-72); ALBUMIN 2.7 g/dL (3.5-5.0); ALKALINE PHOSPHATASE 85 IU/L (38-126); ANION GAP 10 mEq/L (8-16); ASPARTATE AMINOTRANSFERASE 106 IU/L (17-59); BILIRUBIN,TOTAL 1.2 mg/dL (0.1-1.4); CALCIUM 7.5 mg/dL (8.5-10.4); CARBON DIOXIDE 25 mEq/l (22-31); CHLORIDE 103 mEq/L (97-110); CREATININE 0.7 mg/dL (0.7-1.3); GLOMERULAR FILTRATION RATE > 60; GLUCOSE 113 mg/dL (70-100); POTASSIUM 2.9 mEq/L (3.5-5.2); SODIUM 138 mEq/L (134-144); TOTAL PROTEIN 5.1 g/dL (6.3-8.2)
[2017-03-21] MEDS ORDERED: POTASSIUM CL 20 MEQ TAB PO ONE (09:19)
[2017-03-21] MEDS ORDERED: MAGNESIUM SULF 2 GM/WATER 50 ML IV ONE (09:19)
[2017-03-21] MEDS: chlordiazePOXIDE 25 MG CAP PO PRN (09:59)
[2017-03-21] MEDS: LABETALOL HCL 200 MG TAB PO SCH ×2 (09:59→22:41)
[2017-03-21] MEDS: PANTOPRAZOLE SODIUM 40 MG VIAL IVP SCH ×2 (10:13→22:41)
[2017-03-21] MEDS ORDERED: POTASSIUM CL 20 MEQ TAB ONE (10:22)
[2017-03-21] MEDS: POTASSIUM Cl (KCl) 40 MEQ in NS 1,000 ML IV SCH (14:00)
[2017-03-21] MEDS: LORazepam 0.5 MG TAB PO PRN ×3 (14:15→22:41)
--- NOTE | 2017-03-21 15:01 | HOSPPROG ---
Hospitalist Progress Note Assessment/Plan: Assessment: 57-year-old male presents with acute alcohol withdrawal Plan: 1. Alcohol withdrawal. Acute, evidenced by tremulousness, encephalopathy, anxiety, known history of alcohol abuse -continue CIWA scoring, withdrawal continues, DC librium and on Ativan -cont work w/ PT/OT today to ensure strength adequate for self care w/ anticipated DC tomorrow 2. Acute encephalopathy. Evidenced by global brain dysfunction characterized as impaired concentration, confusion, all of which are changes from his baseline , secondary to acute alcohol withdrawal -continue cognitive therapy -resolved 3. Acute blood loss anemia. Hgb stable at 8.6, cont to monitor 4. Suspected acute upper gastrointestinal hemorrhage. Reported coffee-ground emesis and melena, get FOB test and encouraged patient to show to RN -proton pump inhibitor twice a day -continue monitor hemoglobin level -hold on upper endoscopy, reports he recently had one, will further investigate outside record results 5. Transaminitis. Acute, likely secondary to alcohol abuse, continue monitor 6. Alcoholism. Chronic, patient w/ good insight, very candid today, requesting SW consult -d/w case mgmt, appreciate SW convo w/ patient Diet. Regular Prophylaxis. High risk patient, holding pharm given above, SCDs Code. Full Disposition. Anticipated discharge 03/22, requires ongoing withdraw care. Subjective: patient reports melena, no vomiting, ongoing anxiety and feels aweful Objective: Vital Signs Temp Pulse Resp BP Pulse Ox 36.8 C 86 14 98/65 L 91 L 03/21/17 11:08 03/21/17 11:08 03/21/17 11:08 03/21/17 11:08 03/21/17 11:08 Laboratory Results 03/21/17 04:12 03/21/17 05:00 03/20/17 03/21/17 03/22/17 05:59 05:59 05:59 Intake Total 1790 600 Output Total 300 300 Balance 1490 300 PT 14.0 SEC (12.0-15.0) 03/21/17 05:20 INR 1.09 (0.83-1.16) 03/21/17 05:20 - Pending Discharge Pending Discharge Within 24 Hours: Yes Pending Discharge Date: 03/22/17 Pending Discharge Time: 11:00 - Physical Exam Constitutional: no apparent distress, not in pain, chronically ill appearing, uncomfortable Cardiovascular: tachycardia, No systolic murmur, No irregularly irregular, No edema Respiratory: no respiratory distress, no rales or rhonchi, clear to auscultation Gastrointestinal: normoactive bowel sounds, soft, non-tender abdomen, no palpable masses, No distension Neurologic: AAOx3, sensation intact bilaterally, No weakness, No asterixes (but tremulous) Psychiatric: not encephalopathic, thought process linear, anxious, flat affect, No agitated ICD10 Worksheet Patient Problems: Problems Problem Status Onset Alcohol withdrawal Acute GI bleed Acute Alcohol abuse Acute Alcohol intoxication Acute Alcoholic hepatitis Acute Clostridium difficile infection Acute ~01/23/17 EKG abnormality Acute Generalized weakness Acute
--- NOTE | 2017-03-21 15:58 | ASMTCMCOM ---
CM Note CM Note Notes: 03/21/2017 Case Management Note Met w/patient. Discussed desire to achieve sobriety and upcoming housing difficulties. Pt is interested in inpatient alcohol cessation support. Encouraged pt to call [facility] to find out coverage options and facilities available to him. Case Management will send referrals once pt provides list of facilities. Case Management to see pt tomorrow. Case management d/c poc: To be determined. Date Signed: 03/21/2017 03:57 PM Electronically Signed By:Norma Flannery RN
[2017-03-22] MEDS: POTASSIUM Cl (KCl) 40 MEQ in NS 1,000 ML IV SCH (01:10)
[2017-03-22] MEDS: LORazepam 0.5 MG TAB PO PRN ×5 (04:44→22:19)
[2017-03-22 06:06] LABS: ALANINE AMINOTRANSFERASE 79 IU/L (21-72); ALBUMIN 2.7 g/dL (3.5-5.0); ALKALINE PHOSPHATASE 91 IU/L (38-126); ANION GAP 12 mEq/L (8-16); ASPARTATE AMINOTRANSFERASE 115 IU/L (17-59); BILIRUBIN,TOTAL 1.1 mg/dL (0.1-1.4); CALCIUM 7.7 mg/dL (8.5-10.4); CARBON DIOXIDE 17 mEq/l (22-31); CHLORIDE 110 mEq/L (97-110); CREATININE 0.7 mg/dL (0.7-1.3); GLOMERULAR FILTRATION RATE > 60; GLUCOSE 93 mg/dL (70-100); MAGNESIUM 1.5 mg/dL (1.6-2.3); POTASSIUM 3.9 mEq/L (3.5-5.2); SODIUM 139 mEq/L (134-144); TOTAL PROTEIN 4.9 g/dL (6.3-8.2)
[2017-03-22] MEDS: PANTOPRAZOLE SODIUM 40 MG VIAL IVP SCH (08:49)
[2017-03-22] MEDS: LABETALOL HCL 200 MG TAB PO SCH ×2 (08:51→20:42)
[2017-03-22 10:36] LABS: HEMATOCRIT 26.9 % (40.0-51.0); HEMOGLOBIN 9.4 g/dL (13.7-17.5)
[2017-03-22] MEDS: THIAMINE HCL 100 MG TAB PO SCH (11:34)
--- NOTE | 2017-03-22 13:44 | ASMTCMCOM ---
CM Note CM Note Notes: CM spoke w/ Kadeem at [facility] regarding referral. Kadeem reports that they are not contracted w/ [employer]. CM spoke w/ Cherelle at [facility] and she reports that due to his extensive ETOH and unemployment status, she will not be able to accept pt. CM met w/ pt for dispo planning. Pt is willing to go to [facility] and understand that there is a no smoking policy. CM spoke w/ Kasey at [facility] and she will try to obtain the auth. CM updated SADI Rodarte and Dr. Brewer. CM to follow. Date Signed: 03/22/2017 01:43 PM Electronically Signed By:CIERRA Willson
--- NOTE | 2017-03-22 16:43 | HOSPPROG ---
Hospitalist Progress Note Assessment/Plan: Assessment: 57-year-old male presents with acute alcohol withdrawal Plan: 1. Alcohol withdrawal. Acute, evidenced by tremulousness, encephalopathy, anxiety, known history of alcohol abuse -continue CIWA scoring, will cont ativan PRN bid moving forward at SNF -cont work w/ PT/OT, remains functionally weak and requiring SNF 2. Acute encephalopathy. Evidenced by global brain dysfunction characterized as impaired concentration, confusion, all of which are changes from his baseline , secondary to acute alcohol withdrawal -continue cognitive therapy -continues to have subj sx, will get NH4 given his liver disease 3. Acute blood loss anemia. Hgb stable at 9.3, cont to monitor 4. Acute upper gastrointestinal hemorrhage. Reported coffee-ground emesis and melena, FOB positive but no visible e/o further bleeding -proton pump inhibitor twice a day -continue monitor hemoglobin level -hold on upper endoscopy, patient refusing, will recommend outpt [facility] f/u 5. Transaminitis. Acute, likely secondary to alcohol abuse, continue monitor -outside records reviewed (01/12/17 w/ fatty liver) 6. Alcoholism. Chronic, patient w/ good insight, very candid today, requesting SW consult -d/w case mgmt, appreciate SW convo w/ patient Diet. Regular Prophylaxis. High risk patient, holding pharm given above, SCDs Code. Full Disposition. Anticipated discharge 03/23, requires ongoing withdraw care and SNF level of care. Subjective: patient with large watery BM in bed today Objective: Vital Signs Temp Pulse Resp BP Pulse Ox 36.5 C 83 20 117/75 96 03/22/17 14:53 03/22/17 14:53 03/22/17 14:53 03/22/17 14:53 03/22/17 14:53 Laboratory Results 03/22/17 10:20 03/22/17 04:30 03/21/17 03/22/17 03/23/17 05:59 05:59 05:59 Intake Total 600 2400 350 Output Total 300 2 Balance 300 2398 350 PT 14.0 SEC (12.0-15.0) 03/21/17 05:20 INR 1.09 (0.83-1.16) 03/21/17 05:20 - Physical Exam Constitutional: no apparent distress, not in pain, chronically ill appearing, uncomfortable Cardiovascular: regular rate and rhythym, no murmur, rub, or gallop, No edema Respiratory: no respiratory distress, no rales or rhonchi, clear to auscultation Gastrointestinal: normoactive bowel sounds, soft, non-tender abdomen, no palpable masses Neurologic: AAOx3, sensation intact bilaterally, No weakness (motor 5/5 bilat UE /LE), No asterixes Psychiatric: not encephalopathic, thought process linear, anxious, flat affect, No agitated ICD10 Worksheet Patient Problems: Problems Problem Status Onset Alcohol withdrawal Acute GI bleed Acute Alcohol abuse Acute Alcohol intoxication Acute Alcoholic hepatitis Acute Clostridium difficile infection Acute ~01/23/17 EKG abnormality Acute Generalized weakness Acute
[2017-03-22] MEDS: ACETAMINOPHEN 325 MG TAB PO PRN (16:44)
[2017-03-22] MEDS: CEPHALEXIN 500 MG CAP PO SCH ×2 (18:11→23:14)
[2017-03-22] MEDS: PANTOPRAZOLE SODIUM 40 MG TAB PO SCH (20:42)
[2017-03-23] MEDS: LORazepam 0.5 MG TAB PO PRN ×5 (03:41→21:15)
[2017-03-23 04:56] LABS: ADD DIFF? NO; ADD MORPH? NO; ADD SCAN? NO; ATYPICAL LYMPHOCYTE FLAG 0 (0-99); FRAGMENT RBC FLAG 0 (0-99); HEMOGLOBIN 8.8 g/dL (13.7-17.5); LEFT SHIFT FLG 0 (0-99); LIPEMIA HEMOLYSIS FLAG 90 (0-99); MEAN CELL HEMOGLOBIN 36.5 pg (27.9-34.1); MEAN CELL HEMOGLOBIN CONCENTR. 35.2 g/dL (32.4-36.7); MEAN CELL VOLUME 103.7 fL (81.5-99.8); MEAN PLATELET VOLUME 10.6 fL (8.7-11.7); PLATELET CLUMPS FLAG 10 (0-99); PLATELET COUNT 91 10^3/uL (150-400); RED BLOOD CELL COUNT 2.41 10^6/uL (4.40-6.38); RED CELL DISTRIBUTION WIDTH 14.7 % (11.5-15.2)
[2017-03-23 05:19] LABS: ALANINE AMINOTRANSFERASE 79 IU/L (21-72); ALBUMIN 2.6 g/dL (3.5-5.0); ALKALINE PHOSPHATASE 87 IU/L (38-126); ANION GAP 6 mEq/L (8-16); ASPARTATE AMINOTRANSFERASE 88 IU/L (17-59); BILIRUBIN,TOTAL 0.9 mg/dL (0.1-1.4); CALCIUM 7.6 mg/dL (8.5-10.4); CARBON DIOXIDE 24 mEq/l (22-31); CHLORIDE 108 mEq/L (97-110); CREATININE 0.7 mg/dL (0.7-1.3); GLOMERULAR FILTRATION RATE > 60; GLUCOSE 97 mg/dL (70-100); POTASSIUM 3.4 mEq/L (3.5-5.2); SODIUM 138 mEq/L (134-144)
[2017-03-23] MEDS: CEPHALEXIN 500 MG CAP PO SCH ×3 (06:03→16:57)
[2017-03-23] MEDS: PANTOPRAZOLE SODIUM 40 MG TAB PO SCH ×2 (08:00→21:15)
[2017-03-23] MEDS: THIAMINE HCL 100 MG TAB PO SCH (08:00)
[2017-03-23] MEDS: LABETALOL HCL 200 MG TAB PO SCH ×2 (08:08→21:15)
[2017-03-23] MEDS ORDERED: PROTOCOL POTASSIUM 1 DOSE MISC PRN (10:40)
[2017-03-23] MEDS ORDERED: PROTOCOL K PHOSPHATE 1 DOSE IV PRN (10:40)
[2017-03-23] MEDS ORDERED: PROTOCOL MAGNESIUM 1 DOSE IV PRN (10:40)
[2017-03-23] MEDS: BENEFIBER/NUTRISOURCE FIBER PKT 1 EACH PO SCH ×2 (11:26→21:16)
[2017-03-23 11:32] LABS: MAGNESIUM 1.4 mg/dL (1.6-2.3)
[2017-03-23] MEDS ORDERED: K PHOS 20 MMOL in D5W 250 ML IV ONE (12:00)
[2017-03-23] MEDS ORDERED: MAGNESIUM SULF 2 GM/WATER 50 ML IV ONE (12:58)
--- NOTE | 2017-03-23 15:11 | HOSPPROG ---
Hospitalist Progress Note Assessment/Plan: 57 yo M with hx of etoh abuse and withdrawal [facility] with [facility] withdrawal # acute alcohol withdrawal: patient states he intends on coming off of alcohol, he notes the withdrawal this time is much more severe than in the past. Continue to monitor with CIWA and etoh w/d protocol. Continue MVI, thiamine, folate. Counseled on f/u care plan. # acute encephalopathy: in setting of above and now resolved # UGIB: reported on admit without e/o anemia or ongoing bleed, if was present suspect MWT, continue PPI # alcoholic hepatitis: with mild transaminitis present on admission that has been improving, recommending cessation of etoh # ? phlebitis: started on keflex yesterday presumably for this, will monitor # dispo: IP status, will need > 48 hours stay for eval/mgmt of above Patient new to my care. Old records reviewed and summarized as above. Subjective: no significant overnight events, patient feeling better though he remains tremulous and anxious Objective: Vital Signs Temp Pulse Resp BP Pulse Ox 37.1 C 80 16 104/69 97 03/23/17 11:32 03/23/17 11:32 03/23/17 11:32 03/23/17 11:32 03/23/17 11:32 Laboratory Results 03/23/17 04:37 03/23/17 04:37 03/22/17 03/23/17 03/24/17 05:59 05:59 05:59 Intake Total 2400 950 Output Total 2 Balance 2398 950 PT 14.0 SEC (12.0-15.0) 03/21/17 05:20 INR 1.09 (0.83-1.16) 03/21/17 05:20 awake alert nad anicteric op clear rrr no mrg cta b soft nt nd no cce warm dry well perfused oriented appropriate ICD10 Worksheet Patient Problems: Problems Problem Status Onset Alcohol withdrawal Acute GI bleed Acute Clostridium difficile infection Acute ~01/23/17 Generalized weakness Acute EKG abnormality Acute Alcohol abuse Acute Alcohol intoxication Acute Alcoholic hepatitis Acute
[2017-03-24] MEDS: CEPHALEXIN 500 MG CAP PO SCH ×5 (00:09→23:10)
[2017-03-24] MEDS: LORazepam 0.5 MG TAB PO PRN ×5 (05:03→23:10)
[2017-03-24 05:25] LABS: ALANINE AMINOTRANSFERASE 68 IU/L (21-72); ALBUMIN 2.6 g/dL (3.5-5.0); ALKALINE PHOSPHATASE 88 IU/L (38-126); ANION GAP 7 mEq/L (8-16); ASPARTATE AMINOTRANSFERASE 71 IU/L (17-59); BILIRUBIN,TOTAL 0.7 mg/dL (0.1-1.4); CALCIUM 7.6 mg/dL (8.5-10.4); CARBON DIOXIDE 24 mEq/l (22-31); CHLORIDE 107 mEq/L (97-110); CREATININE 0.7 mg/dL (0.7-1.3); GLOMERULAR FILTRATION RATE > 60; GLUCOSE 92 mg/dL (70-100); MAGNESIUM 1.7 mg/dL (1.6-2.3); POTASSIUM 3.4 mEq/L (3.5-5.2); SODIUM 138 mEq/L (134-144); TOTAL PROTEIN 4.8 g/dL (6.3-8.2)
[2017-03-24] MEDS ORDERED: MAGNESIUM SULF 1 GM/DEXTROSE 100 ML IV ONE (09:16)
[2017-03-24] MEDS ORDERED: POTASSIUM CL 10 MEQ TAB PO ONE ×2 (09:16→20:22)
[2017-03-24] MEDS: LABETALOL HCL 200 MG TAB PO SCH ×2 (10:09→20:45)
[2017-03-24] MEDS: PANTOPRAZOLE SODIUM 40 MG TAB PO SCH ×2 (10:13→20:45)
[2017-03-24] MEDS: THIAMINE HCL 100 MG TAB PO SCH (10:14)
[2017-03-24] MEDS: BENEFIBER/NUTRISOURCE FIBER PKT 1 EACH PO SCH ×2 (11:13→20:46)
[2017-03-24] MEDS ORDERED: K PHOS 10 MMOL in D5W 250 ML IV ONE (12:00)
--- NOTE | 2017-03-24 15:13 | HOSPPROG ---
Hospitalist Progress Note Assessment/Plan: 57 yo M with hx of etoh abuse and withdrawal [facility] with [facility] withdrawal # acute alcohol withdrawal: patient states he intends on coming off of alcohol, he notes the withdrawal this time is much more severe than in the past. Continue to monitor with CIWA and etoh w/d protocol. Continue MVI, thiamine, folate. # anxiety: withdrawal is improving though anxiety continues to be an issues, for now continue with prn ativan per ciwa but will need to consider alternative mgmt for anxiety if continues when w/d is resolved. # acute encephalopathy: in setting of above and now resolved # UGIB: reported on admit without e/o anemia or ongoing bleed, if was present suspect MWT, continue PPI # alcoholic hepatitis: with mild transaminitis present on admission that has been improving, recommending cessation of etoh # ? phlebitis: started on keflex yesterday presumably for this, will monitor # dispo: IP status, will need > 48 hours stay for eval/mgmt of above, plan is for [facility] likely after dc, CM involved Subjective: no significant overnight events, continues to feel anxious, w/d is improving, less tremulous Objective: Vital Signs Temp Pulse Resp BP Pulse Ox 36.7 C 79 14 118/76 95 03/24/17 12:00 03/24/17 12:00 03/24/17 12:00 03/24/17 12:00 03/24/17 12:00 Laboratory Results 03/23/17 04:37 03/24/17 04:43 03/23/17 03/24/17 03/25/17 05:59 05:59 05:59 Intake Total 950 500 110 Output Total 350 300 Balance 950 150 -190 PT 14.0 SEC (12.0-15.0) 03/21/17 05:20 INR 1.09 (0.83-1.16) 03/21/17 05:20 awake alert nad anicteric op clear rrr no mrg cta b soft nt nd no cce warm dry well perfused oriented appropriate ICD10 Worksheet Patient Problems: Problems Problem Status Onset Alcohol withdrawal Acute GI bleed Acute Alcohol abuse Acute Alcohol intoxication Acute Alcoholic hepatitis Acute Clostridium difficile infection Acute ~01/23/17 EKG abnormality Acute Generalized weakness Acute
--- NOTE | 2017-03-24 16:34 | ASMTCMCOM ---
CM Note CM Note Notes: Rohanr met w/ Pt. today due to RN request - stating that he is quite anxious. Pt. states he has anxiety about going to [facility] because his mother there. Pt. also states he has been treating his anxiety with alcohol. Pt. recently lost his job and was evicted from his apartment. Pt. anxious that he will lose his belongings at the [facility] in [place] . Kasey from [facility] agreed to get Pt's suitcase of belongings from the [facility] on Monday (should Pt. be admitted). Notably, Pt. couldn't remember what '[facility] was just a few minutes after the whole conversation about his mother dying there and Pt himself being admitted there in the past. At Pt's request, Martha asked CM business process architect to provide jeans, shirt, socks, and coat from the [facility] donated clothing closet. Clothing provided. Pt. grateful. [facility] states that they are having difficulty getting insurance auth through [place] due to only having PT assessments. Pt. noted to have cognitive difficulties. BOTTLE GAUGER eval is requested. Will forward that eval to . Current plan: Await Pt. being accepted by [facility] due to insurance auth process. Date Signed: 03/24/2017 04:33 PM Electronically Signed By:Jazzy Nation LCSW
[2017-03-24 19:03] LABS: POTASSIUM 3.6 mEq/L (3.5-5.2)
[2017-03-25] MEDS: LORazepam 0.5 MG TAB PO PRN ×4 (04:43→23:54)
[2017-03-25] MEDS: CEPHALEXIN 500 MG CAP PO SCH ×4 (04:43→23:54)
[2017-03-25 05:31] LABS: MAGNESIUM 1.7 mg/dL (1.6-2.3); POTASSIUM 4.2 mEq/L (3.5-5.2)
[2017-03-25] MEDS ORDERED: POTASSIUM CL 10 MEQ TAB PO ONE ×2 (08:21→19:18)
[2017-03-25] MEDS ORDERED: MAGNESIUM SULF 1 GM/DEXTROSE 100 ML IV ONE (08:22)
[2017-03-25] MEDS: LABETALOL HCL 200 MG TAB PO SCH ×2 (08:41→19:59)
[2017-03-25] MEDS: PANTOPRAZOLE SODIUM 40 MG TAB PO SCH ×2 (08:42→19:59)
[2017-03-25] MEDS: BENEFIBER/NUTRISOURCE FIBER PKT 1 EACH PO SCH ×2 (08:48→19:59)
[2017-03-25] MEDS: THIAMINE HCL 100 MG TAB PO SCH (10:46)
[2017-03-25] MEDS ORDERED: K PHOS 10 MMOL in D5W 250 ML IV ONE (12:00)
--- NOTE | 2017-03-25 17:17 | ASMTCMCOM ---
CM Note CM Note Notes: Kasey from [facility] had mentioned yesterday evening that Pt. was upset that he couldn't stay at [facility] on a long-term basis. SWer met w/ Pt. in room today to discuss Pt's concerns. Pt. seemed to understand SWer's explanation of rehab as a short-term process, but Pt. still hopeful that if he worked w/ SWer at [facility] that he would get housing. RN and Rohanr worked today to get OT and DIRECTOR CLINICAL OPERATIONS cog evals ordered to help booster Pt's likelihood of getting SNF placement authorized by [facility]. PT still recommending SNF. [facility] still willing to take Pt. if auth comes through. CM to follow. Date Signed: 03/25/2017 05:17 PM Electronically Signed By:Jazzy Nation LCSW
[2017-03-25 18:25] LABS: POTASSIUM 3.9 mEq/L (3.5-5.2)
--- NOTE | 2017-03-25 18:47 | HOSPPROG ---
Hospitalist Progress Note Assessment/Plan: 57 yo M with hx of etoh abuse and withdrawal [facility] with [facility] withdrawal # acute alcohol withdrawal: patient states he intends on coming off of alcohol, he notes the withdrawal this time is much more severe than in the past. Continue to monitor with CIWA and etoh w/d protocol--nearly resolved at this time. Continue MVI, thiamine, folate. # anxiety: withdrawal is improving though anxiety continues to be an issues, for now continue with prn ativan per ciwa but will need to consider alternative mgmt for anxiety if continues when w/d is resolved. # acute encephalopathy: in setting of above and now resolved # UGIB: reported on admit without e/o anemia or ongoing bleed, if was present suspect MWT, continue PPI # alcoholic hepatitis: with mild transaminitis present on admission that has been improving, recommending cessation of etoh # ? phlebitis: started on keflex, only mild area, will add warm compress and dc abx soon # dispo: IP status, will need > 48 hours stay for eval/mgmt of above, plan is for [facility] likely after dc, CM involved Subjective: no signficant overnight events, patient notes that he is feeling better although continues to have some tremor Objective: Vital Signs Temp Pulse Resp BP Pulse Ox 36.7 C 77 20 123/87 H 97 03/25/17 15:15 03/25/17 15:15 03/25/17 15:15 03/25/17 15:15 03/25/17 15:15 Laboratory Results 03/23/17 04:37 03/25/17 18:06 03/24/17 03/25/17 03/26/17 05:59 05:59 05:59 Intake Total 500 1168 Output Total 350 300 200 Balance 150 868 -200 PT 14.0 SEC (12.0-15.0) 03/21/17 05:20 INR 1.09 (0.83-1.16) 03/21/17 05:20 awake alert nad anicteric op clear rrr no mrg cta b soft nt nd no cce warm dry well perfused oriented appropriate ICD10 Worksheet Patient Problems: Problems Problem Status Onset Alcohol withdrawal Acute GI bleed Acute Alcohol abuse Acute Alcohol intoxication Acute Alcoholic hepatitis Acute Clostridium difficile infection Acute ~01/23/17 EKG abnormality Acute Generalized weakness Acute
[2017-03-26] MEDS: LORazepam 0.5 MG TAB PO PRN ×4 (04:51→20:42)
[2017-03-26] MEDS: CEPHALEXIN 500 MG CAP PO SCH ×4 (04:51→23:14)
[2017-03-26 05:23] LABS: MAGNESIUM 1.7 mg/dL (1.6-2.3)
[2017-03-26] MEDS ORDERED: MAGNESIUM SULF 1 GM/DEXTROSE 100 ML IV ONE (07:15)
[2017-03-26] MEDS: PANTOPRAZOLE SODIUM 40 MG TAB PO SCH ×2 (08:20→20:37)
[2017-03-26] MEDS: LABETALOL HCL 200 MG TAB PO SCH ×2 (08:20→20:37)
[2017-03-26] MEDS: THIAMINE HCL 100 MG TAB PO SCH (08:22)
[2017-03-26] MEDS: BENEFIBER/NUTRISOURCE FIBER PKT 1 EACH PO SCH ×2 (09:17→20:37)
--- NOTE | 2017-03-26 09:47 | ASMTCMCOM ---
CM Note CM Note Notes: Chart reviewed. PT and SP notes updated to [facility] via allscripts. Insurance auth still pending, may dc tomorrow. CM to follow. Date Signed: 03/26/2017 09:47 AM Electronically Signed By:Ayah Jensen RN
[2017-03-26] MEDS: ACETAMINOPHEN 325 MG TAB PO PRN (12:48)
--- NOTE | 2017-03-26 14:18 | HOSPPROG ---
Hospitalist Progress Note Assessment/Plan: 57 yo M with hx of etoh abuse and withdrawal presenting from the [facility] with etoh withdrawal # acute alcohol withdrawal: patient states he intends on coming off of alcohol, he notes the withdrawal this time is much more severe than in the past. Continue to monitor with CIWA and etoh w/d protocol--nearly resolved at this time. Continue MVI, thiamine, folate. # anxiety: withdrawal is improving though anxiety continues to be an issues, for now continue with prn ativan per ciwa but will need to consider alternative mgmt for anxiety if continues when w/d is resolved. He notes that for the most part his anxiety is periodic and feels more c/w panic attack type symptoms. He notes not being particularly interested in starting something like paxil or zoloft. # acute encephalopathy: in setting of above and now resolved # UGIB: reported on admit without e/o anemia or ongoing bleed, if was present suspect MWT, continue PPI # alcoholic hepatitis: with mild transaminitis present on admission that has been improving, recommending cessation of etoh # ? phlebitis: started on keflex, only mild area, will add warm compress and dc abx soon # dispo: IP status, will need > 48 hours stay for eval/mgmt of above, plan is for [facility] likely after dc, CM involved Subjective: no significant overnight events, patient notes that he is feeling much better though still intermittently having severe anxiety Objective: Vital Signs Temp Pulse Resp BP Pulse Ox 37.1 C 84 18 135/86 H 95 03/26/17 07:02 03/26/17 08:20 03/26/17 07:02 03/26/17 08:20 03/26/17 07:02 Laboratory Results 03/23/17 04:37 03/26/17 04:46 03/25/17 03/26/17 03/27/17 05:59 05:59 05:59 Intake Total 1168 Output Total 300 200 Balance 868 -200 PT 14.0 SEC (12.0-15.0) 03/21/17 05:20 INR 1.09 (0.83-1.16) 03/21/17 05:20 awake alert nad anicteric op clear rrr no mrg cta b soft nt nd no cce warm dry well perfused oriented appropriate ICD10 Worksheet Patient Problems: Problems Problem Status Onset Alcohol withdrawal Acute GI bleed Acute Alcohol abuse Acute Alcohol intoxication Acute Alcoholic hepatitis Acute Clostridium difficile infection Acute ~01/23/17 EKG abnormality Acute Generalized weakness Acute
[2017-03-27] MEDS: LORazepam 0.5 MG TAB PO PRN ×6 (00:43→22:20)
[2017-03-27] MEDS: CEPHALEXIN 500 MG CAP PO SCH ×3 (04:58→18:25)
[2017-03-27 05:06] LABS: MAGNESIUM 1.6 mg/dL (1.6-2.3); POTASSIUM 4.1 mEq/L (3.5-5.2)
[2017-03-27] MEDS: THIAMINE HCL 100 MG TAB PO SCH (08:08)
[2017-03-27] MEDS: BENEFIBER/NUTRISOURCE FIBER PKT 1 EACH PO SCH ×3 (08:08→20:56)
[2017-03-27] MEDS: PANTOPRAZOLE SODIUM 40 MG TAB PO SCH ×2 (08:08→20:56)
[2017-03-27] MEDS: LABETALOL HCL 200 MG TAB PO SCH ×2 (08:08→20:57)
[2017-03-27] MEDS ORDERED: MAGNESIUM SULF 1 GM/DEXTROSE 100 ML IV ONE (08:22)
--- NOTE | 2017-03-27 15:27 | HOSPPROG ---
Hospitalist Progress Note Assessment/Plan: 57 yo M with hx of etoh abuse and withdrawal [facility] with [facility] withdrawal # acute alcohol withdrawal: patient states he intends on coming off of alcohol, he notes the withdrawal this time is much more severe than in the past. Continue to monitor with CIWA and etoh w/d protocol--nearly resolved at this time. Continue MVI, thiamine, folate. # anxiety: withdrawal is improving though anxiety continues to be an issues, for now continue with prn ativan per ciwa but will need to consider alternative mgmt for anxiety if continues when w/d is resolved. He notes that for the most part his anxiety is periodic and feels more c/w panic attack type symptoms. He notes not being particularly interested in starting something like paxil or zoloft. # acute encephalopathy: in setting of above and now resolved # UGIB: reported on admit without e/o anemia or ongoing bleed, if was present suspect MWT, continue PPI # alcoholic hepatitis: with mild transaminitis present on admission that has been improving, recommending cessation of etoh # ? phlebitis: started on keflex, only mild area--will dc keflex now that he has received 5 total days and monitor off of abx # dispo: IP status, will need > 48 hours stay for eval/mgmt of above, plan is for [facility] likely after dc, CM involved--suspect will have bed availability in the next 1-2 days per CM Subjective: no significant overnight events, patient notes feeling a bit better , has been walking with PT--still requires some help with that Objective: Vital Signs Temp Pulse Resp BP Pulse Ox 36.4 C 83 14 133/85 H 95 03/27/17 08:00 03/27/17 08:08 03/27/17 08:00 03/27/17 08:08 03/27/17 08:00 Laboratory Results 03/23/17 04:37 03/27/17 04:17 03/26/17 03/27/17 03/28/17 05:59 05:59 05:59 Output Total 200 Balance -200 PT 14.0 SEC (12.0-15.0) 03/21/17 05:20 INR 1.09 (0.83-1.16) 03/21/17 05:20 awake alert nad anicteric op clear rrr no mrg cta b soft nt nd no cce warm dry well perfused oriented appropriate ICD10 Worksheet Patient Problems: Problems Problem Status Onset Alcohol withdrawal Acute GI bleed Acute Alcohol abuse Acute Alcohol intoxication Acute Alcoholic hepatitis Acute Clostridium difficile infection Acute ~01/23/17 EKG abnormality Acute Generalized weakness Acute
--- NOTE | 2017-03-27 16:48 | ASMTCMCOM ---
CM Note CM Note Notes: CM sent updates to [facility]. Jazzy Jean has approved pt for 60 days at SNF. CM faxed attached the Level I approved PASRR to allscripts. [facility] reports that pts [employer] insurance has declined pt for SNF. They report that pt is too independent. Liz Chang in today to meet w/ pt. Spoke with [facility] to get the [employer] rep and their phone number to check on the expiration date of patient's insurance plan. Awaiting Danielle's return call. Next steps may include applying for Medicaid LTC but patient will need to apply when monthly income is 0.Kasey from [facility] came to meet with patient and explain the insurance denial to him. CM will follow. Date Signed: 03/27/2017 04:47 PM Electronically Signed By:Magdalena Solares LCSW
[2017-03-27 19:06] LABS: POTASSIUM 3.4 mEq/L (3.5-5.2)
[2017-03-28] MEDS: CEPHALEXIN 500 MG CAP PO SCH (00:26)
[2017-03-28] MEDS: LORazepam 0.5 MG TAB PO PRN ×2 (03:47→08:43)
[2017-03-28 05:49] LABS: POTASSIUM 3.5 mEq/L (3.5-5.2)
[2017-03-28 08:25] VITALS: PULSE 82; RESP 18; TEMP 97.5; O2SAT 90
[2017-03-28] MEDS ORDERED: POTASSIUM CL 20 MEQ TAB PO ONE (08:27)
[2017-03-28] MEDS: BENEFIBER/NUTRISOURCE FIBER PKT 1 EACH PO SCH (08:43)
[2017-03-28] MEDS: THIAMINE HCL 100 MG TAB PO SCH (08:43)
[2017-03-28] MEDS: PANTOPRAZOLE SODIUM 40 MG TAB PO SCH (08:43)
[2017-03-28] MEDS: LABETALOL HCL 200 MG TAB PO SCH (08:46)
[2017-03-28 08:48] VITALS: BP 93/59
--- NOTE | 2017-03-28 11:32 | ASMTCMCOM ---
CM Note CM Note Notes: Spoke with PT who states patient is independent and has no needs. Patient is not eligible for SNF placement medically and his insurance has denied payment for SNF placement. Spoke with Dr. Brewer and the D/C plan will be taxi patient to the halfway bed for tonight. Spoke with patient who confirmed he does want the halfway bed for tonight. Gave patient resources for food, medical care, etoh support, and possible respite care in [place]. Patient told the nurse he had talked to his employer a couple of days ago and told this CM he had not spoken with them in some time and didn't know if he had a job. Patient is gving different stories. Patient most likely will d/c today. CM available if further needs arise. Date Signed: 03/28/2017 11:31 AM Electronically Signed By:Magdalena Solares LCSW
--- NOTE | 2017-03-28 15:20 | ASMTCMCOM ---
CM Note CM Note Notes: Per Dr. Brewer's request, patient was given a follow up appointment with Dr. Ledezma for April 04, 2017 @ 1:00. Patient was also given a cane to assist with mobility during his recovery. Patient was given his medication, mapped with [facility]. [facility] delivered medication to patient. Patient will be taxi'ed to [facility] for the night. Patient d/c'ed today 03/28/17. Date Signed: 03/28/2017 03:20 PM Electronically Signed By:Magdalena Solares LCSW
--- NOTE | 2017-03-28 16:21 | ASDISCHSUM ---
Discharge Information Plan Status:Homeless/Intermediate Medically Cleared to Leave: Discharge Date:03/28/2017 03:49 PM CM D/C Disposition: ADT D/C Disposition:Home, Routine, Self-Care Projected Discharge Date:03/24/2017 11:00 AM Transportation at D/C: Discharge Delay Reason: Follow-Up Date:03/24/2017 11:00 AM Discharge Slot: Final Diagnosis: Placement Information Referral Type:*Alf/SNF Referral ID:[id number] Provider Name: Address 1: Phone Number: Address 2: Fax Number: City: Selection Factors: State: Patient Contact Information Contact Name:RAGINI Relationship: Address: Home Phone: Work Phone: City: Alternate Phone: [facility]/[employer] Code: Email: Financial Information Financial Class:HMO and PPO Plans Primary Plan Desc:MTAT CASTRO PPO Primary Plan Number:[id number] Secondary Plan Desc: Secondary Plan Number: Assessment Information LACE LACE Emergency dept visits in Answers: 2 last 6 months Score: 2 Date Signed: 03/19/2017 10:38 AM Electronically Signed By:Jazzy Cummings RN CAGE Questionnaire CAGE Do you feel you ought to Answers: Yes cut down on your drinking or drug use? Do people annoy you by Answers: No criticizing your drinking or drug use? Do you feel guilty about Answers: No your drinking or drug use? Do you drink or use drugs Answers: Yes first thing in the morning ([employer])? Date Signed: 03/20/2017 04:27 PM Electronically Signed By:Magdalena Solares LCSW [facility] Progress Note CM Note CM Note Notes: Met with patient regarding his alcoholism and current circumstances. Patient has lost his job with [employer] and has been evicted from his apartment. 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 Patient requests assistance with retirement placement. PT has recommended SNF placement for rehab. Referrals made to [facility], [facility], and [facility]. Patient will also need clothes at d/c. He only managed to get a suitcase of clothes from his apartment and it is stored with the [employer]. He has to turkey picker the suitcase by March 26, 2017 and hopes he can figure out how to get his things. Patient's parents are . Patient has 1 sister but has no idea where she is. Patient does not have any close friends and describes himself as a "loner". He has never had services with [facility] and has never applied for SS Disability. He was unaware of [facility]. Patient currently has Matt CASTRO but does not know when it expires since he has lost his job. CM will follow. Date Signed: 03/20/2017 04:50 PM Electronically Signed By:Magdalena Solares LCSW [facility] Progress Note CM Note CM Note Notes: 03/21/2017 Case Management Note Met w/patient. Discussed desire to achieve sobriety and upcoming housing difficulties. Pt is interested in inpatient alcohol cessation support. Encouraged pt to call Matt to find out coverage options and facilities available to him. Case Management will send referrals once pt provides list of facilities. Case Management to see pt tomorrow. Case management d/c poc: To be determined. Date Signed: 03/21/2017 03:57 PM Electronically Signed By:Norma Flannery RN [facility] Progress Note CM Note CM Note Notes: CM spoke w/ Kadeem at [facility] regarding referral. Kadeem reports that they are not contracted w/ [employer]. CM spoke w/ Cherelle at [facility] and she reports that due to his extensive ETOH and unemployment status, she will not be able to accept pt. CM met w/ pt for dispo planning. Pt is willing to go to [facility] and understand that there is a no smoking policy. CM spoke w/ Kasey at [facility] and she will try to obtain the auth. CM updated SADI Rodarte and Dr. Brewer. CM to follow. Date Signed: 03/22/2017 01:43 PM Electronically Signed By:CIERRA Willson [facility] SUMEET Progress Note CM Note CM Note Notes: SWer met w/ Pt. today due to RN request - stating that he is quite anxious. Pt. states he has anxiety about going to [facility] because his mother there. Pt. also states he has been treating his anxiety with alcohol. Pt. recently lost his job and was evicted from his apartment. Pt. anxious that he will lose his belongings at the [facility] in [place] . Kasey from [facility] agreed to get Pt's suitcase of belongings from the [facility] on Monday (should Pt. be admitted). Notably, Pt. couldn't remember what '[facility]' was just a few minutes after the whole conversation about his mother dying there and Pt himself being admitted there in the past. At Pt's request, Martha asked CM business insight and analytics manager to provide jeans, shirt, socks, and coat from the [facility] donated clothing closet. Clothing provided. Pt. grateful. [facility] states that they are having difficulty getting insurance auth through [employer] due to only having PT assessments. Pt. noted to have cognitive difficulties. FISCAL SERVICES DIRECTOR prasad is requested. Will forward that eval to . Current plan: Await Pt. being accepted by [facility] SNF due to insurance auth process. Date Signed: 03/24/2017 04:33 PM Electronically Signed By:Jazzy Nation LCSW [facility] Progress Note CM Note CM Note Notes: Kasey from [facility] had mentioned yesterday evening that Pt. was upset that he couldn't stay at [facility] on a long-term basis. Martha met w/ Pt. in room today to discuss Pt's concerns. Pt. seemed to understand SWer's explanation of rehab as a short-term process, but Pt. still hopeful that if he worked w/ SWer at [facility] that he would get housing. RN and Rohanr worked today to get OT and FISCAL SERVICES DIRECTOR cog evals ordered to help booster Pt's likelihood of getting SNF placement authorized by [employer]. PT still recommending SNF. [facility] still willing to take Pt. if auth comes through. CM to follow. Date Signed: 03/25/2017 05:17 PM Electronically Signed By:Jazzy Nation LCSW [facility] CM Progress Note CM Note CM Note Notes: Chart reviewed. PT and SP notes updated to [facility] via [employer]. Insurance auth still pending, september dc tomorrow. CM to follow. Date Signed: 03/26/2017 09:47 AM Electronically Signed By:Ayah Jensen RN [facility] CM Progress Note CM Note CM Note Notes: CM sent updates to [facility]. Jazzy Jean has approved pt for 60 days at SNF. CM faxed attached the Level I approved PASRR to [employer]. [facility] reports that pts [employer] insurance has declined pt for SNF. They report that pt is too independent. Liz Chang in today to meet w/ pt. Spoke with [facility] to get the [employer] rep and their phone number to check on the expiration date of patient's insurance plan. Awaiting Danielle's return call. Next steps may include applying for Medicaid LTC but patient will need to apply when monthly income is 0.Kasey from [facility] came to meet with patient and explain the insurance denial to him. CM will follow. Date Signed: 03/27/2017 04:47 PM Electronically Signed By:Magdalena Solares LCSW [facility] CM Progress Note CM Note CM Note Notes: Spoke with PT who states patient is independent and has no needs. Patient is not eligible for SNF placement medically and his insurance has denied payment for SNF placement. Spoke with Dr. Brewer and the D/C plan will be taxi patient to the long term bed for tonight. Spoke with patient who confirmed he does want the long term bed for tonight. Gave patient resources for food, medical care, etoh support, and possible respite care in [place]. Patient told the nurse he had talked to his employer a couple of days ago and told this CM he had not spoken with them in some time and didn't know if he had a job. Patient is gving different stories. Patient most likely will d/c today. CM available if further needs arise. Date Signed: 03/28/2017 11:31 AM Electronically Signed By:Magdalena Solares LCSW [facility] Progress Note CM Note CM Note Notes: Per Dr. Brewer's request, patient was given a follow up appointment with Dr. Ledezma for April 04, 2017 @ 1:00. Patient was also given a cane to assist with mobility during his recovery. Patient was given his medication, mapped with [employer]. [employer] delivered medication to patient. Patient will be taxi[facility]ed to [facility] for the night. Patient d/c'ed today 03/28/17. Date Signed: 03/28/2017 03:20 PM Electronically Signed By:Magdalena Solares LCSW Intervention Information
--- NOTE | 2017-03-28 17:48 | PDDCSUM ---
Discharge Summary Discharge Summary: DISCHARGE SUMMARY FOLLOW-UP ITEMS: Outpatient follow-up appointment scheduled prior to discharge DATE OF ADMISSION: 03/19/2017 DATE OF DISCHARGE: 03/27/2017 DISCHARGE DIAGNOSES: 1. Acute alcohol withdrawal 2. Acute on Chronic anxiety 3. Acute encephalopathy 4. Acute upper gastrointestinal hemorrhage 5. Acute alcoholic hepatitis 6. Acute cellulitis and phlebitis 7. Acute blood loss anemia CONSULTATIONS: None PROCEDURES / IMAGING: None CHIEF COMPLAINT: Acute tremulousness and weakness SUBJECTIVE: Patient is feeling well at time of discharge, he is ambulating safely, he is no longer tremulous, he is not anxious about discharge plan PHYSICAL EXAM ON DISCHARGE: Systolic blood pressure 110, heart rate 80, afebrile overnight, satting well on room air, alert awake oriented x3, no apparent distress, pain level 0 10, patient is not tremulous LABS ON DISCHARGE: White blood cell count 3400, hemoglobin 8.8, platelets 15257, creatinine 0.7, potassium 3.5, AST 71, ALT normal HOSPITAL COURSE BY PROBLEM: 1. Acute alcohol withdrawal. Patient presented with acute alcohol withdrawal evidenced by tremulousness, weakness, anxiety, with recent discontinuation of alcohol. The patient was maintained on CIWA and tapered off of Ativan. Initially received MVI, thiamine, folate. The patient is committed to sobriety. 2. Acute on chronic anxiety. Patient's alcohol withdrawal worsened his chronic anxiety, and he did require a prolonged Ativan taper during this hospitalization. The patient will not be discharged on supplemental benzodiazepine as he is high risk for abuse. He is not particularly interested in initiating an antidepressant medication, would recommend that he establish primary care and follow up with this issue. He was deemed safe to ambulate and care for self at discharge, and PT/OT believed he was safe for discharge w/o services. Originally he had required services and we applied for SNF, but Matt denied authorization, and patient's condition improved to the extent that he no longer required them. 3. Acute encephalopathy. Evidenced by global brain dysfunction characterized as impaired concentration, confusion, all of which are changes from his baseline , secondary to acute alcohol withdrawal. Patient received cognitive therapy during this hospitalization, we ruled him out for hepatic encephalopathy with a normal ammonia level, and patient's mental status as baseline time discharge. 4. Acute blood loss anemia. Hemoglobin remained stable in the 8-9 range, most likely secondary to a combination of chronic alcohol abuse as well as acute upper gastrointestinal hemorrhage. Patient did not require blood transfusion during this hospitalization and he will require outpatient monitoring through PCP office. 5. Acute upper gastrointestinal hemorrhage. Patient reported coffee-ground emesis as well as melena, his fecal occult blood test was positive, most likely secondary to gastritis and possible Evelyn-Boyce tear. Patient had no evidence of further bleeding after initiating proton pump inhibitor, and recommended pantoprazole twice daily, for an additional 1 week after discharge, then once daily thereafter. Recommend that he follow up with his primary care provider office for outpatient hemoglobin level monitoring and also consideration of GI of the [facility] referral. The patient did not want endoscopy during this hospitalization. 6. Acute alcoholic hepatitis. Patient with transaminitis secondary to liver injury, ultrasound demonstrating steatosis, stable time discharge. 7. Acute cellulitis and phlebitis. Located in the right antecubital fossa, secondary to IV line, treated with 5 days of Keflex, resolved discharge. DISCHARGE MEDICATIONS: Please see official discharge medication reconciliation sheet in chart, continued on pantoprazole 40 twice daily for 1 week, medication provided, then once daily thereafter. Patient was continued on his home dosage of labetalol, for which he has a prescription. DISCHARGE INSTRUCTIONS: Please follow up with primary care provider, scheduled prior to discharge. TIME SPENT: Greater than 30 minutes were spent on direct patient care, as well as discharge planning and preparation.
== END 2017-03-28 15:49 | disposition home or self-care (01) | DRG 896 ==
LOC: EDUNIT# → OBSVTOIN 11:53 → F2W 12:09 → F3E 03-22 21:00
PROVIDERS: ADMIT Internal Medicine; ATTEND Internal Medicine
DX: F10.230 Alcohol dependence with withdrawal, uncomplicated (principal); G93.49 Other encephalopathy; K29.71 Gastritis, unspecified, with bleeding; K22.6 Gastro-esophageal laceration-hemorrhage syndrome; D62 Acute posthemorrhagic anemia; L03.113 Cellulitis of right upper limb; F41.9 Anxiety disorder, unspecified; K70.10 Alcoholic hepatitis without ascites; I80.8 Phlebitis and thrombophlebitis of other sites; I10 Essential (primary) hypertension; E78.5 Hyperlipidemia, unspecified; Z72.0 Tobacco use
CPT/HCPCS: 92523-GN; 96374; 97110-GP; 97116-GP; 97161-GP; 97165-GO; 97530-GO; 97530-GP; J2060; J2405; J3475

== ENCOUNTER 2017-04-02 10:59 | Observation (INO) | payer OTHER ==
[2017-04-02] MEDS ORDERED: ONDANSETRON 4 MG/2 ML VIAL IVP PRN (12:51)
[2017-04-02] MEDS ORDERED: ACETAMINOPHEN 325 MG TAB PO PRN (12:51)
[2017-04-02] MEDS ORDERED: ONDANSETRON DISINTEGRATING 4 MG TAB PO PRN (12:51)
[2017-04-02] MEDS ORDERED: OCTREOTIDE ACETATE 500 MCG in D5W 50 ML IV SCH (13:00)
[2017-04-02] MEDS ORDERED: chlordiazePOXIDE 25 MG CAP PO SCH (13:45)
[2017-04-02] MEDS ORDERED: MIDAZOLAM 2 MG/2 ML VIAL ONE (13:56)
[2017-04-02] MEDS ORDERED: PROPOFOL 200 MG/20 ML VIAL ONE ×2 (13:57→14:02)
[2017-04-02] MEDS ORDERED: chlordiazePOXIDE 25 MG CAP PO ONE ×2 (14:00→14:15)
--- NOTE | 2017-04-02 14:01 | PDANEPAE ---
ANE Past Medical History - Pulmonary History Hx Oxygen in Use at Home: No Hx Sleep Apnea: No - Endocrine History Hx Diabetes: No - Chronic Pain History Chronic Pain: No ANE Review of Systems Review of Systems: ANE Patient History - Allergies Allergies/Adverse Reactions: No Known Allergies Allergy (Unverified 01/22/17 10:47) - Home Medications Home Medications: Labetalol HCl [Trandate 200 mg (*)] 200 mg PO BID 03/19/17 [Last Taken 04/02/17] Multivitamins [Multivitamin (*)] 1 each PO DAILY 03/19/17 [Last Taken 04/02/17] Pantoprazole Sodium [Protonix 40mg (*)] 40 mg PO BIDMEAL 04/02/17 [Last Taken ] - NPO status NPO Since - Liquids (Date): 04/02/17 NPO Since - Liquids (Time): 10:00 NPO Since - Solids (Date): 04/02/17 - Smoking Hx Smoking Status: Heavy smoker ANE Labs/Vital Signs - Vital Signs Blood Pressure: 134/72 Heart Rate: 85 Respiratory Rate: 18 O2 Sat (%): 88 ANE Physical Exam - Airway Mallampati Score: Class 2 Mouth exam: poor dentition - Pulmonary Pulmonary: no respiratory distress, no rales or rhonchi, clear to auscultation - Cardiovascular Cardiovascular: regular rate and rhythym, no murmur, rub, or gallop - ASA Status ASA Status: III, E ANE Anesthesia Plan Anesthesia Plan: GA with mask
[2017-04-02] MEDS ORDERED: DEXAMETHASONE 4 MG/ML VIAL IVP PRN (14:11)
[2017-04-02] MEDS ORDERED: fentaNYL 100 MCG/2 ML INJ IVP PRN (14:11)
[2017-04-02] MEDS ORDERED: LABETALOL HCL 5 MG/ML 20 ML MDV IVP PRN (14:11)
[2017-04-02] MEDS ORDERED: MEPERIDINE 25 MG/ML SYR IVP PRN (14:11)
[2017-04-02] MEDS ORDERED: NALOXONE HCL 0.4 MG/ML INJ IVP PRN (14:11)
[2017-04-02] MEDS ORDERED: LR 500 ML IV PRN (14:11)
[2017-04-02] MEDS ORDERED: PROMETHAZINE HCL 25 MG/ML INJ IVP PRN (14:11)
--- NOTE | 2017-04-02 14:16 | GHP ---
[f rep st] HISTORY AND PHYSICAL DATE OF ADMISSION: 04/02/2017 CHIEF COMPLAINT: Coffee-grounds emesis. HISTORY OF PRESENT ILLNESS: A 57-year-old male with known history of alcohol abuse, who presented to the [facility] today acutely intoxicated, with nausea and vomiting. The patient was wi tnessed having coffee-grounds emesis, and transferred to [facility] for Gastroenterol ogy consultation. The patient endorses drinking over a gallon of vodka in the past 24-48 hours. Reports that he is dri nking every day since his disposition on the from [facility]. Denies any bright red blood in his vomitus. Denies any noticed melena. Denies abdominal pain. Denies dysphagia. De nies headache, vision changes or chest pain. The patient reports chronic shortness of breath from be ing overweight and out of shape. The patient denies lower extremity edema. Denies any rashes. Ruel es any bleeding when he brushes his teeth. PAST MEDICAL HISTORY: 1. Alcohol abuse, extensive, for the last 3 years. 2. History of hypertension. 3. Hyperlipidemia. 4. History of a cerebrovascular accident with residual speech deficits. 5. History of C difficile. 6. Diastolic dysfunction. SOCIAL HISTORY: The patient has recently been evicted and lost work. Smokes a pack of cigarettes a day. Drinks alcohol heavily, typically a quart or more of hard alcohol a day. FAMILY HISTORY: Positive for heart disease. ADVANCED DIRECTIVES: The patient is full cor, full tube. REVIEW OF SYSTEMS: A 10-point review of systems is negative, with the exception of that reported in the HPI. PHYSICAL EXAMINATION: VITAL SIGNS: Blood pressure 118/76, heart rate 81, respiratory rate 16, 94% o n 2 L, 36.4. GENERAL: This is a middle-aged male sitting up in bed. HEENT: Notable for dry mucous membranes. Eye exam is negative for any icterus. CARDIAC: The patient is regular rate and rhythm. PULMONARY: Good respiratory effort. Clear to auscultation bilaterally. GASTROINTESTINAL: Positi ve bowel sounds. The abdomen is soft and nontender. MUSCULOSKELETAL: Negative for any lower extrem ity edema. SKIN: Negative for any rashes or petechiae. NEUROLOGIC: The patient is tremulous with tongue fasciculations. Alert and oriented x3. PSYCHIATRIC: He is pleasant and cooperative on inter view and examination. LABORATORY DATA: The last H and H in the system are 8.8 and 25. IMAGING: Ultrasound of the abdomen from previous hospitalization 01/22/2017 shows fatty liver change s and hepatomegaly. Chest x-ray from his most recent hospitalization, which I personally reviewed an d interpreted, shows no acute infiltrates or edema. ASSESSMENT AND PLAN: This is a 57-year-old male presenting with coffee-grounds emesis. 1. Acute upper gastrointestinal bleed. Based on the patient's history, suspect this is related to h is alcohol abuse, either gastritis or portal hypertensive gastropathy. The extent of this patient's liver damage is not documented in our system beyond simple fatty changes visualized on ultrasound. W ill initiate IV PPI twice daily. The patient is being taken to the EGD lab now. Will be able to det ermine the need for octreotide at that time. Will follow H and H. 2. Active alcohol withdrawal. The patient is already tremulous. Reported blood alcohol level at th e outside ED in the 200s. Will initiate alcohol withdrawal protocol and consider actually giving the patient a drink this evening to avoid serious withdrawal. I wrote him for IV thiamine. The patient can take p.o. once cleared by Gastroenterology after scoping. 3. History of hypertension. Looking back through our recent records, the patient has had blood pres sures in the 90s to 100s systolic. He certainly would not require any antihypertensive at this time. 4. Hyperlipidemia. Will continue the patient's home medications, if on a statin. 5. Prophylaxis. Contraindicated in the setting of acute gastrointestinal bleed. 6. Diet. N.p.o. until after EGD. DISPOSITION: I expect less than 2 midnights. If the patient remains stable post EGD, he should be a candidate for disposition in less than 2 midnights. I have discussed the case with Dr. Jo from GI. He is taking the patient for EGD immediately upo n arrival. /[id number]/MODL
--- NOTE | 2017-04-02 14:17 | GIREPORT ---
[facility] Surgical Services - Endoscopy Department Patient Name: Tapan Luther Procedure Date: 04/02/2017 1:26 PM Patient Type: Inpatient Attending MD/ ER Physician: Doc Jo MD Procedure: Upper GI endoscopy Indications: Reported Hematemesis Providers: Doc Jo MD Referring MD: Maxi Ramos M.D. Medicines: Sedation Required Anesthesia Staff Assistance Complications: No immediate complications. Description of Procedure: After obtaining informed consent, the endoscope was passed under direct vision. Throughout the procedure, the patient's blood pressure, pulse, and oxygen saturations were monitored continuously. The Endoscope was intro duced through the mouth, and advanced to the second part of duodenum. [facility] endoscopy was accomplished without difficulty. The patient tolerated th e procedure well. Findings: The Z-line was irregular and was found 39 cm from the incisors. Biopsie s were taken with a cold forceps for histology. A medium amount of food (residue) was found in the gastric body. No blo od seen in the stomach. Diffuse moderate inflammation characterized by congestion (edema), eryt nessa and granularity was found in the entire examined stomach. Biopsies were taken with a cold forceps for histology. The examined duodenum was normal. Estimated Blood Loss: Estimated blood loss: none. Post Op Diagnosis: - Z-line irregular, 39 cm from the incisors. Rule out Johnson's Esophag us. Biopsied. - A medium amount of food (residue) in the stomach. - Alcoholic gastritis. Biopsied. - Normal examined duodenum. Recommendation: - Await pathology results. - No signs of acute upper GI bleeding or risk for upper GI bleeding. - Resume regular diet. - Withdrawal precautions - Follow an antireflux regimen. - Use Protonix (pantoprazole) 40 mg PO BID. - Will sign off, please call with further questions. - Discontinue Octreotide. - Thank you for allowing me to participate in the care of your patient. Attending Participation: I personally performed the entire procedure. Doc Jo MD Doc Jo MD 04/02/2017 2:17:25 PM This report has been signed electronicallyStteresita Jo MD Number of Addenda: 0 Note Initiated On: 04/02/2017 1:26 PM [email or web address]
--- NOTE | 2017-04-02 14:25 | GCON ---
[f rep st] CONSULTATION REFERRING PHYSICIAN: Ofelia Dobbins MD CHIEF COMPLAINT: Reported gastrointestinal bleed. HISTORY OF PRESENT ILLNESS: This patient was sent over from [facility] ER because they were unable to get GI coverage in their own Hospital or Hospital System. The patient was accepted in transfer by [facility] hospitalist, Dr. Devonte Hung. I have been asked to see this patient in consultation by Dr. Dobbins for gastrointestinal bleed. The patient had been previously admitted to [facility] about 2 weeks ago for ETOH withdrawal. He has a history of alcoholism and prior history of C. difficile (January 2017). He is homeless and he presented from the [facility] at that time. He has had prior history of alcohol withdrawals and tremors. He has a prior history of hypertension and a prior history of Thalmic stroke. He has been actively drinking recently however he has not had alcohol for 2 days. He presented to [facility] ER this morning and was evaluated by Dr. Maxi Ramos, who reported that the patient was brought to [facility] Emergency Department by ambulance and found down by EMS, hypotensive, weak and had an episode of hematemesis. The patient reports that he drove himself into the hospital for withdrawal symptoms. He reported an episode of vomiting prior to coming to the ER but the patient denied hematemesis. Patient denies black or tarry stool. Patient did report that he was lightheadedness and tremulous when he presented to the emergency department. He was asymptomatic on presentation at [facility] and reports that he feels shaky because he has not had alcohol for two days and reports that he is hungry. Patient reports a history of fatty liver and hypertension. He also has had a previous stroke from hypertension. He previously seen Dr. Dorado as a PCP. However, he reports that he has not seen a PCP in a while. He has no prior history of GI bleeding. He does have a history of reflux disease and has been on a PPI. He has not had a previous EGD or colonoscopy. He was given IV fluids and Octreotide at [facility]. He was hemodynamically stable in the ER at [facility], with a BP 89/50 and a pulse of 74. He had reported heme- positive stool without melena. Labs at [facility] revealed a Hct of 32 with a Hgb of 10.9. He had a normal BUN and creatinine. LFTs revealed an AST of 73 and ALT of 48. Hgb and Hct were 8.8 and 25 about two weeks ago with an MCV of 103. The patient was transferred over to [facility] for further management as [facility] has no GI speciality care. PAST MEDICAL HISTORY: 1. Remarkable for prior history of C difficile colitis in January of this year. 2. Chronic alcoholism. 3. Diastolic dysfunction by echocardiogram. 4. Hypertension. 5. Hyperlipidemia. 6. History of stroke with some residual speech deficits. 7. GERD SOCIAL HISTORY: Smokes a pack of cigarettes per day. Drinks about a quart to half a gallon of whiskey a day at least for the last 3 years. He lives alone, is homeless. He has been laid off. He has been drinking more since he was laid off. 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 FAMILY HISTORY: Remarkable for coronary artery disease and Alzheimer disease, otherwise, negative as it pertains to chief complaint. ALLERGIES: No known drug allergies. MEDICATION PRIOR TO ADMISSION: Aspirin, hydrochlorothiazide (currently not taking), labetalol, and a proton pump inhibitor. REVIEW OF SYSTEMS: Negative for 10 systems other than mentioned in HPI. PHYSICAL EXAMINATION: VITAL SIGNS: 118/76, heart rate of 81, respiratory rate 16, 94% saturation, he is afebrile at 36.4. GENERAL: This is a very pleasant gentleman, in no acute distress. HEENT: Normocephalic, atraumatic. EOMI. NECK: Supple. No cervical adenopathy. No thyromegaly. MOUTH: Mucous membranes dry LUNGS: Clear. CARDIOVASCULAR: Cardiac exam is normal. S1, S2 without murmur. ABDOMEN: Nontender, normal bowel sounds. No hepatosplenomegaly appreciated. EXTREMITIES: Without clubbing, cyanosis, or edema. SKIN: Warm, dry, intact. NEUROLOGIC: Grossly nonfocal. PSYCHIATRIC: Normal affect. Alert and oriented x3. LABORATORY DATA: Hemoglobin 10.9 hematocrit 32. Serum chemistries, Sodium 144 , potassium 3.2, Chloride 108, CO2 23, glucose 85, BUN 6 and Creatine 0.97. IMPRESSION: 57-year-old gentleman with questionable gastrointestinal bleed. He is hemodynamically stable and denies hematemesis. He has no acute signs or symptoms of active bleeding on presentation to [facility].. He has a normal BUN and creatine suggesting he does not have a significant UGI bleed. No significant drop in Hct as compared to previous labs. We will proceed with urgent diagnostic upper endoscopy for further evaluation. Continue on PPI. Patient to be watched for alcohol withdrawal with precautions. Copy requested to: Maxi Ramos MD /[id number]/MODL MTDD
--- NOTE | 2017-04-02 14:28 | POSTANESTH ---
Post Anesthetic Evaluation Cardiovascular Status: Normal, Stable, Similar to Pre-Op Cond Respiratory Status: Normal, Stable, Similar to Pre-op Cond. Level of Consciousness/Mental Status: Can Participate in Eval, Alert and Oriented Pain Control: Adequate, Prn Tx Ordered Nausea/Vomiting Control: Adequate, Prn Tx Ordered Complications Possibly Related to Anesthesia: None Noted
[2017-04-02] MEDS: NS 1,000 ML IV SCH (15:18)
[2017-04-02] MEDS: THIAMINE HCL 500 MG in NS 100 ML IV SCH (15:26)
[2017-04-02 17:43] LABS: % IMMATURE GRANULYOCYTES 0.2 % (0.0-1.1); ABSOLUTE IMMATURE GRANULOCYTES 0.01 10^3/uL (0.00-0.10); ADD DIFF? NO; ADD MORPH? NO; ADD SCAN? NO; ATYPICAL LYMPHOCYTE FLAG 0 (0-99); FRAGMENT RBC FLAG 0 (0-99); HEMATOCRIT 30.6 % (40.0-51.0); HEMOGLOBIN 10.4 g/dL (13.7-17.5); LEFT SHIFT FLG 0 (0-99); LIPEMIA HEMOLYSIS FLAG 90 (0-99); MEAN CELL HEMOGLOBIN 35.5 pg (27.9-34.1); MEAN CELL VOLUME 104.4 fL (81.5-99.8); MEAN PLATELET VOLUME 9.5 fL (8.7-11.7); PLATELET CLUMPS FLAG 0 (0-99); PLATELET COUNT 412 10^3/uL (150-400); RED BLOOD CELL COUNT 2.93 10^6/uL (4.40-6.38); RED CELL DISTRIBUTION WIDTH 14.5 % (11.5-15.2)
[2017-04-02 17:51] LABS: INR 1.08 (0.83-1.16); PROTIME(PATIENT) 13.9 SEC (12.0-15.0)
[2017-04-02] MEDS ORDERED: VODKA 50 ML BOTTLE PO SCH (18:00)
[2017-04-02] MEDS: LORazepam 2 MG/ML INJ IVP PRN ×2 (18:38→22:47)
[2017-04-03] MEDS: NS 1,000 ML IV SCH (01:49)
[2017-04-03] MEDS: LORazepam 2 MG/ML INJ IVP PRN ×2 (02:50→07:48)
[2017-04-03 04:43] LABS: % IMMATURE GRANULYOCYTES 0.4 % (0.0-1.1); ABSOLUTE IMMATURE GRANULOCYTES 0.02 10^3/uL (0.00-0.10); ADD DIFF? NO; ADD MORPH? NO; ADD SCAN? NO; ATYPICAL LYMPHOCYTE FLAG 0 (0-99); FRAGMENT RBC FLAG 0 (0-99); HEMATOCRIT 29.6 % (40.0-51.0); HEMOGLOBIN 9.9 g/dL (13.7-17.5); LEFT SHIFT FLG 0 (0-99); LIPEMIA HEMOLYSIS FLAG 80 (0-99); MEAN CELL HEMOGLOBIN 34.6 pg (27.9-34.1); MEAN CELL HEMOGLOBIN CONCENTR. 33.4 g/dL (32.4-36.7); MEAN CELL VOLUME 103.5 fL (81.5-99.8); MEAN PLATELET VOLUME 9.8 fL (8.7-11.7); PLATELET CLUMPS FLAG 0 (0-99); PLATELET COUNT 410 10^3/uL (150-400); RED BLOOD CELL COUNT 2.86 10^6/uL (4.40-6.38); RED CELL DISTRIBUTION WIDTH 14.6 % (11.5-15.2)
[2017-04-03 04:57] LABS: ANION GAP 12 mEq/L (8-16); CALCIUM 8.3 mg/dL (8.5-10.4); CARBON DIOXIDE 21 mEq/l (22-31); CHLORIDE 109 mEq/L (97-110); CREATININE 0.9 mg/dL (0.7-1.3); GLOMERULAR FILTRATION RATE > 60; GLUCOSE 110 mg/dL (70-100); MAGNESIUM 1.2 mg/dL (1.6-2.3); POTASSIUM 4.3 mEq/L (3.5-5.2); SODIUM 142 mEq/L (134-144)
[2017-04-03] MEDS: THIAMINE HCL 500 MG in NS 100 ML IV SCH (07:49)
[2017-04-03 08:33] VITALS: BP 150/96; PULSE 85; RESP 16; TEMP 98.1; O2SAT 95
[2017-04-03] MEDS ORDERED: chlordiazePOXIDE 25 MG CAP PO ONE (08:38)
[2017-04-03] MEDS ORDERED: PANTOPRAZOLE SODIUM 40 MG VIAL IVP SCH (09:00)
--- NOTE | 2017-04-03 10:18 | ASMTCASEMG ---
Living Arrangements What is your living Answers: Alone arrangement? Who do you live with? Type Of Residence What kind of residence do Answers: Apartment you live in? Discharge Plan Comments Coordination Status Comments Notes: Pt is a 57 y/o man admitted for a GI bleed. Pt was recently here at [facility] on 03/19/17. Pt is being discharged today. CM met w/ pt for dispo planning. Pt reports that he does not have any needs and plans on discharging independent. Pt reports that he has been renting a room in [place] for the next two months. Pt reports that he will either Uber or Lyft when leaving the hospital. CM available for changes. Date Signed: 04/03/2017 10:17 AM Electronically Signed By:CIERRA Willson
--- NOTE | 2017-04-03 16:00 | ASDISCHSUM ---
Discharge Information Plan Status:Home with No Needs Medically Cleared to Leave:04/02/2017 Discharge Date:04/03/2017 10:45 AM CM D/C Disposition: ADT D/C Disposition:Home, Routine, Self-Care Projected Discharge Date:04/03/2017 12:00 AM Transportation at D/C: Discharge Delay Reason: Follow-Up Date:04/03/2017 12:00 AM Discharge Slot: Final Diagnosis: Placement Information Patient Contact Information Contact Name:RAGINI Relationship: Address: Home Phone: Work Phone: City: Alternate Phone: State/[place] Code: Email: Financial Information Financial Class:HMO and PPO Plans Primary Plan Desc:[employer] Primary Plan Number:[id number] Secondary Plan Desc: Secondary Plan Number: Assessment Information [facility] Initial CM Assessment Living Arrangements What is your living Answers: Alone arrangement? Who do you live with? Type Of Residence What kind of residence do Answers: Apartment you live in? Discharge Plan Comments Coordination Status Comments Notes: Pt is a 57 y/o man admitted for a GI bleed. Pt was recently here at [facility] on 03/19/17. Pt is being discharged today. CM met w/ pt for dispo planning. Pt reports that he does not have any needs and plans on discharging independent. Pt reports that he has been renting a room in [place] for the next two months. Pt reports that he will either Uber or Lyft when leaving the hospital. CM available for changes. Date Signed: 04/03/2017 10:17 AM Electronically Signed By:CIERRA Willson LACE KATELYN Length of stay for Answers: 1 day current admission Acuity / Level of Care Answers: No. Emergency dept visits in Answers: 3 last 6 months Score: 4 Date Signed: 04/03/2017 10:30 AM Electronically Signed By:CIERRA Willson Intervention Information Intervention Type:*Incorrect Registration Date of Service:04/02/2017 12:54 PM Patient Type:Observation Staff Member:SADI Prado Shelly Hours:0.25 Discipline: Severity:1 (0-1 Hours) Comment:Registered inpatient, written admit or renetta observation status.
--- NOTE | 2017-04-03 16:55 | GDS ---
[f rep st] DISCHARGE SUMMARY DISCHARGE DIAGNOSES: Include: 1. Coffee-grounds emesis. 2. Alcohol abuse. 3. Gastroesophageal reflux disease. 4. Tobacco abuse. HISTORY OF PRESENT ILLNESS: A 57-year-old male with known history of alcohol abuse, who was transfer red from an outside hospital after reported coffee-grounds emesis. For details of patient's initial presentation, please see the History and Physical dated 04/02/2017. CONSULTATIVE SERVICES: Include Gastroenterology. PROCEDURES: On 04/02/2017, the patient underwent endoscopy which showed no signs of acute upper GI b leeding or risk of GI bleeding. HOSPITAL COURSE: By issue: 1. Suspected upper GI bleed. Patient had reported coffee-grounds emesis at the outside facility, wa s transferred to [facility] for evaluation. Underwent EGD which was negative for any a cute findings. Patient was monitored overnight with a stable H and H and vital signs, and no recurre nt emesis. He is being discharged on his home dosing of pantoprazole daily. 2. Acute alcohol withdrawal. Patient was tremulous and tachycardic upon arrival. Reports that he h ad drunk approximately a gallon of vodka in the preceding 24 hours. The patient was placed on the CI AR protocol, received 2 doses of Librium, was mildly tremulous on the day before disposition. Resour cole were offered for cessation, and the patient refused. He is being discharged with recommendations for ongoing cessation in the outpatient setting. 3. Tobacco dependence. Patient was not interested in resources related to this at this time. 4. History of hypertension. Patient presented at [facility] and never had systolic blood pre ssures above 120. I am discontinuing the patient's outpatient labetalol dosing, based on the blood p ressures we saw in-house, which ranged between 100 and 120. It is recommended the patient follow in his outpatient PCP clinic for blood pressure recheck. It is possible that they will rebound back up, requiring ongoing treatment. MEDICATIONS AT THE TIME OF TRANSFER: Please reference med rec printed on 04/03/2017. FOLLOWUP APPOINTMENTS: 1. With his primary care provider. 2. The patient to see GI of the [facility] in the outpatient setting in the next 2-4 weeks for followup from his EGD, and first post-disposition GI followup. PENDING STUDIES: At the time of this dictation, include biopsies taken during EGD. Dr. Jo from Gastroenterology will be following him in the outpatient setting. /[id number]/MODL
== END 2017-04-03 10:45 | disposition home or self-care (01) ==
LOC: F3E 12:51 → INTOOBSV 12:51 → PREOBSVTOIN 12:56
PROVIDERS: ADMIT Hospitalist; ATTEND Hospitalist
PROC: HZ2ZZZZ Detoxification Services for Substance Abuse Treatment (ICD-10-PCS; 2017-04-02)
PROC: 0DB68ZX Excision of Stomach, Via Natural or Artificial Opening Endoscopic, Diagnostic (ICD-10-PCS; principal; 2017-04-02 13:30)
PROC: 0DB48ZX Excision of Esophagogastric Junction, Via Natural or Artificial Opening Endoscopic, Diagnostic (ICD-10-PCS; principal; 2017-04-02 13:30)
DX: K92.0 Hematemesis (principal); F10.239 Alcohol dependence with withdrawal, unspecified; K29.20 Alcoholic gastritis without bleeding; K22.9 Disease of esophagus, unspecified; K21.9 Gastro-esophageal reflux disease without esophagitis; F17.210 Nicotine dependence, cigarettes, uncomplicated; I10 Essential (primary) hypertension; E78.5 Hyperlipidemia, unspecified; I69.328 Other speech and language deficits following cerebral infarction; I51.9 Heart disease, unspecified; K76.9 Liver disease, unspecified; Z86.19 Personal history of other infectious and parasitic diseases; Z82.49 Family history of ischemic heart disease and other diseases of the circulatory system; Z59.0 Homelessness
CPT/HCPCS: 43239; 97161; 97165; G0378; J2060; J2250; J2353; J2704; J3411

== ENCOUNTER 2017-05-30 03:44 | Observation (INO) | payer SELFPAY ==
[2017-05-30] MEDS ORDERED: NS 1,000 ML IV ONE (03:46)
--- NOTE | 2017-05-30 03:52 | EDPHY ---
H & P HPI/ROS: HPI CHIEF COMPLAINT: CVA Alert by EMS, Right-sided weakness. HISTORY OF PRESENT ILLNESS: This patient is a 57-year-old male, history of a CVA, this left him with some speech abnormality and some right-sided weakness, additionally has a history of hypertension, alcohol abuse, alcoholism diastolic heart failure, he presents emergency room as a stroke alert by EMS. Patient is currently at the [facility]. He has there detoxing from alcohol. He states at 7:30 p.m. he went to sleep and felt fine at 3:00 a.m. he woke up and noticed he had some right-sided weakness that is more pronounced than normal. He also complains of a mild headache. He thinks he may be having another stroke. Upon arrival to the emergency room I did Greet the ambulance and sent the patient directly to CT without contrast of his head. He does have appreciable right-sided weakness right upper extremity and right lower extremity weakness on exam. No facial droop. No speech abnormality. Past Medical History: CVA, hypertension, tobacco abuse, alcoholism, C diff, diastolic heart failure recent diagnosis of C diff on p.o. Vanco. Past Surgical History: No recent surgery Social History: History of daily alcohol use. Family History: Noncontributory ROS REVIEW OF SYSTEMS: A comprehensive 10 point review of systems is otherwise negative aside from elements mentioned in the history of present illness. Exam Constitutional appears well nontoxic triage nursing summary reviewed, vital signs reviewed, awake/alert. Eyes normal conjunctivae and sclera, EOMI, PERRLA. HENT normal inspection, atraumatic, moist mucus membranes, no epistaxis, neck supple/ no meningismus, no raccoon eyes. Respiratory clear to auscultation bilaterally, normal breath sounds, no respiratory distress, no wheezing. Cardiovascular rate normal, regular rhythm, no murmur, no edema, distal pulses normal. Gastrointestinal soft, non-tender, no rebound, no guarding, normal bowel sounds, no distension, no pulsatile mass. Genitourinary no CVA tenderness. Musculoskeletal no midline vertebral tenderness, full range of motion, no calf swelling, no tenderness of extremities, no meningismus, good pulses, neurovascularly intact. Skin pink, warm, & dry, no rash, skin atraumatic. Neurologic neurological exam shows right upper extremity and right lower extremity weakness. His right upper extremity is 4/5. Right lower extremity 3/ 5 . No sensation abnormality on exam. No facial droop. No dysarthria. Otherwise unremarkable neuro exam cranial nerves intact. Does have drift of his right lower extremity. Psychiatric normal mood/affect. Heme/Lymph/Immune no lymphadenopathy. Differential Diagnosis: Includes but is not limited to in a particular order acute CVA, , hypertensive emergency, hypertensive emergency, intracranial bleed , large vessel occlusion. Medical Decision Making: Plan for this patient will proceed directly to CT scan for CT scan without contrast for stroke and bleed. Additionally will proceed with CT angiogram head and neck for large vessel occlusion. Will consult [facility]. Re-evaluation: 0352: Spoke with Dr. Bose with [facility]: Recommends getting a CT angiogram head and neck. Recommends against tPA given this was a wake-up symptom, last seen normal at 7:00 p.m.. Does not recommend this patient getting tPA. 0410: CT scan head without contrast called to me by Dr. Llanes, negative for acute stroke. CT angiogram head and neck negative for large vessel occlusion dissection or aneurysm or bleed. Called to me by Dr. Llanes. 0431AM: Will update [facility] about the results CT scans. Will most likely need to admit the patient here to the hospital for further stroke evaluation and rule out. EKG interpretation by me on record in [facility] system. Impression time of EKG 4:23 a.m., sinus rhythm rate of 82. I do not Appreciate acute ischemic change. Dr. Bose has seen evaluated the patient 4:39 a.m.. Does not recommend tPA. Patient's NIH stroke scale TWO. Time of NIHSS was upon arrival to er. TIME 0335AM Time of arrival. Patient's NIH stroke scale TWO. At time of admission. 0440 [id number]: Spoke with the hospitalist service Dr. myron Gay. Has accepted the admission of this patient. Went over the case in detail. Updated patient as well. Source: Patient, EMS - Medical/Surgical History Hx Asthma: No Hx Chronic Respiratory Disease: No Hx Diabetes: No Hx Cardiac Disease: Yes Hx Renal Disease: No Hx Cirrhosis: No Hx Alcoholism: Yes Hx HIV/AIDS: No Hx Splenectomy or Spleen Trauma: No Other PMH: HTN, ETOH, CVA 2013 , hypercholesterolemia, current smoker, cdiff jan 2017, trouble hearing out of right ear - Social History Smoking Status: Heavy smoker Constitutional: Initial Vital Signs Temperature (C) 36.5 C 05/30/17 03:46 Heart Rate 95 05/30/17 03:46 Respiratory Rate 18 05/30/17 03:46 Blood Pressure 127/94 H 05/30/17 03:46 O2 Sat (%) 100 05/30/17 03:46 O2 Delivery Mode Room Air Allergies/Adverse Reactions: No Known Allergies Allergy (Unverified 05/30/17 04:28) Home Medications: Medication Instructions Recorded Flagyl 05/30/17 Vancomycin 05/30/17 Medical Decision Making - Data Points Laboratory Results: Laboratory Results 05/30/17 03:45 05/30/17 03:45 05/30/17 05/30/17 05/30/17 04:45 04:00 03:45 WBC RBC Hgb POC Hgb Hct POC Hct MCV MCH MCHC RDW Plt Count MPV Neut % (Auto) Lymph % (Auto) [place] % (Auto) Eos % (Auto) Baso % (Auto) Nucleat RBC Rel Count Absolute Neuts (auto) Absolute Lymphs (auto) Absolute Monos (auto) Absolute Eos (auto) Absolute Basos (auto) Absolute Nucleated RBC Immature Gran % Immature Gran # PT Pending REJ INR Pending REJ APTT Pending POC Sodium Sodium 138 mEq/L mEq/L (135-145) POC Potassium Potassium 3.5 mEq/L mEq/L (3.5-5.2) POC Chloride Chloride 101 mEq/L mEq/L (97-110) Carbon Dioxide 24 mEq/l mEq/l (22-31) Anion Gap 13 mEq/L mEq/L (8-16) POC BUN BUN < 2 mg/dL L mg/dL (7-23) Creatinine 0.6 mg/dL L mg/dL (0.7-1.3) POC Creatinine Estimated GFR > 60 Glucose 85 mg/dL mg/dL (70-100) POC Glucose Calcium 8.0 mg/dL L mg/dL (8.5-10.4) Troponin I < 0.012 ng/mL ng/mL (0.000-0.034) Ethyl Alcohol < 10 mg/dL mg/dL (0-10) 05/30/17 05/30/17 03:45 03:40 WBC 5.86 10^3/uL 10^3/uL (3.80-9.50) RBC 3.19 10^6/uL L 10^6/uL (4.40-6.38) Hgb 10.6 g/dL L g/dL (13.7-17.5) POC Hgb 11.9 gm/dL L gm/dL (13.7-17.5) Hct 31.3 % L % (40.0-51.0) POC Hct 35 % L % (40-51) MCV 98.1 fL fL (81.5-99.8) MCH 33.2 pg pg (27.9-34.1) MCHC 33.9 g/dL g/dL (32.4-36.7) RDW 16.0 % H % (11.5-15.2) Plt Count 111 10^3/uL L 10^3/uL (150-400) MPV 11.2 fL fL (8.7-11.7) Neut % (Auto) 68.1 % % (39.3-74.2) Lymph % (Auto) 21.0 % % (15.0-45.0) [place] % (Auto) 6.7 % % (4.5-13.0) Eos % (Auto) 3.4 % % (0.6-7.6) Baso % (Auto) 0.5 % % (0.3-1.7) Nucleat RBC Rel Count 0.0 % % (0.0-0.2) Absolute Neuts (auto) 3.99 10^3/uL 10^3/uL (1.70-6.50) Absolute Lymphs (auto) 1.23 10^3/uL 10^3/uL (1.00-3.00) Absolute Monos (auto) 0.39 10^3/uL 10^3/uL (0.30-0.80) Absolute Eos (auto) 0.20 10^3/uL 10^3/uL (0.03-0.40) Absolute Basos (auto) 0.03 10^3/uL 10^3/uL (0.02-0.10) Absolute Nucleated RBC 0.00 10^3/uL 10^3/uL (0-0.01) Immature Gran % 0.3 % % (0.0-1.1) Immature Gran # 0.02 10^3/uL 10^3/uL (0.00-0.10) PT INR APTT POC Sodium 139 mEq/L mEq/L (135-145) Sodium POC Potassium 3.3 mEq/L mEq/L (3.3-5.0) Potassium POC Chloride 98 mEq/L mEq/L (97-110) Chloride Carbon Dioxide Anion Gap POC BUN < 3 mg/dL L mg/dL (7-23) BUN Creatinine POC Creatinine 0.7 mg/dL mg/dL (0.7-1.3) Estimated GFR Glucose POC Glucose 88 mg/dL mg/dL (70-100) Calcium Troponin I Ethyl Alcohol Medications Given: Discontinued Medications Acetaminophen (Tylenol) 1,000 mg PO EDNOW ONE Stop: 05/30/17 04:48 Last Admin: 05/30/17 04:48 Dose: 1,000 mg Sodium Chloride (Ns) 1,000 mls @ 0 mls/hr IV ONCE ONE; Wide Open PRN Reason: Protocol Stop: 05/30/17 03:47 Last Admin: 05/30/17 04:41 Dose: 1,000 mls Ondansetron HCl (Zofran) 4 mg IVP EDNOW ONE Stop: 05/30/17 04:47 Last Admin: 05/30/17 04:48 Dose: 4 mg Point of Care Test Results: 05/30/17 03:40 POC Sodium 139 POC Potassium 3.3 POC Chloride 98 POC BUN < 3 L POC Creatinine 0.7 POC Glucose 88 Departure - Departure Disposition: [facility] Inpatient Acute Clinical Impression: Right sided weakness Condition: Fair Referrals: Patient,NotPresent [Unknown] - As per Instructions
[2017-05-30 04:03] LABS: PLATELET COUNT 111 10^3/uL (150-400)
[2017-05-30] MEDS ORDERED: ONDANSETRON 4 MG/2 ML VIAL ONE (04:45)
[2017-05-30] MEDS ORDERED: ACETAMINOPHEN 500 MG TAB ONE (04:45)
[2017-05-30] MEDS ORDERED: ONDANSETRON 4 MG/2 ML VIAL IVP ONE (04:46)
[2017-05-30] MEDS ORDERED: ACETAMINOPHEN 500 MG TAB PO ONE (04:47)
[2017-05-30] MEDS ORDERED: ONDANSETRON 4 MG/2 ML VIAL IVP PRN (04:51)
--- NOTE | 2017-05-30 04:55 | CPEKG ---
Heart Rate: 82 RR Interval: 732 P-R Interval: 160 QRSD Interval: 90 QT Interval: 420 QTC Interval: 491 P [place]: 78 QRS [place]: 47 T Wave [place]: 61 EKG Severity - BORDERLINE ECG - EKG Impression: SINUS RHYTHM EKG Impression: LOW VOLTAGE IN FRONTAL LEADS EKG Impression: BORDERLINE PROLONGED QT INTERVAL Electronically Signed By: Jaya Pichardo 04-Jun-2017 09:38:57
[2017-05-30 05:07] LABS: INR 1.14 (0.83-1.16); PROTIME(PATIENT) 14.8 SEC (12.0-15.0)
--- NOTE | 2017-05-30 05:21 | PDGENHP ---
History and Physical - Chief Complaint R sided weakness - History of Present Illness 57 yo M w/ hx of ETOH abuse, HTN, and stroke presents with R sided weakness. Patient states he woke up with R sided weakness worse than baseline. He has some mild R sided weakness from a stroke in 2013. He presented to ED as stroke alert. tPA was not given as this was a wake up stroke. He continues to complain of R sided weakness although this is subtle on exam. CT head and CTA Head/neck were unremarkable. Of note he is also under treatment for C. Diff. He is very unclear about the timeline of his treatment and when he was diagnosed. Inspection of his pill bottles shows significant non-compliance from counting the left over pills. He states he is still having liquid stools several times per day. History Information - Allergies/Home Medication List Allergies/Adverse Reactions: No Known Allergies Allergy (Unverified 05/30/17 04:28) Home Medications: CHOLESTYRAMINE LIGHT PACKET 05/30/17 [Last Taken Unknown] Flagyl 05/30/17 [Last Taken Unknown] Labetalol HCl 05/30/17 [Last Taken Unknown] Vancomycin 05/30/17 [Last Taken Unknown] I have personally reviewed and updated: family history, medical history - Past Medical History CVA, hypertension Additional medical history: ETOH abuse - Family History Positive for: cancer - Social History Smoking Status: Heavy smoker Review of Systems Review of Systems: ROS: 10pt was reviewed & negative except for what was stated in HPI & below Physical Exam Physical Exam: Temp Pulse Resp BP Pulse Ox 36.5 C 81 18 129/72 H 96 05/30/17 03:46 05/30/17 04:30 05/30/17 04:30 05/30/17 04:30 05/30/17 04:30 Constitutional: no apparent distress, not in pain Eyes: PERRL, EOMI Ears, Nose, Mouth, Throat: moist mucous membranes, no oral mucosal ulcers Cardiovascular: regular rate and rhythym, no murmur, rub, or gallop Respiratory: no respiratory distress, clear to auscultation Gastrointestinal: normoactive bowel sounds, soft, non-tender abdomen Skin: warm, normal color Musculoskeletal: no muscle tenderness, no joint effusions Neurologic: AAOx3, weakness (Subtle RUE and RLE weakness), numbness (R foot), CN II-XII Intact, No facial droop Psychiatric: interacting appropriately, not anxious Lab Data & Imaging Review 05/30/17 03:45 05/30/17 03:45 WBC 5.86 10^3/uL (3.80-9.50) 05/30/17 03:45 RBC 3.19 10^6/uL (4.40-6.38) L 05/30/17 03:45 Hgb 10.6 g/dL (13.7-17.5) L 05/30/17 03:45 POC Hgb 11.9 gm/dL (13.7-17.5) L 05/30/17 03:40 Hct 31.3 % (40.0-51.0) L 05/30/17 03:45 POC Hct 35 % (40-51) L 05/30/17 03:40 MCV 98.1 fL (81.5-99.8) 05/30/17 03:45 MCH 33.2 pg (27.9-34.1) 05/30/17 03:45 MCHC 33.9 g/dL (32.4-36.7) 05/30/17 03:45 RDW 16.0 % (11.5-15.2) H 05/30/17 03:45 Plt Count 111 10^3/uL (150-400) L 05/30/17 03:45 MPV 11.2 fL (8.7-11.7) 05/30/17 03:45 Neut % (Auto) 68.1 % (39.3-74.2) 05/30/17 03:45 Lymph % (Auto) 21.0 % (15.0-45.0) 05/30/17 03:45 [place] % (Auto) 6.7 % (4.5-13.0) 05/30/17 03:45 Eos % (Auto) 3.4 % (0.6-7.6) 05/30/17 03:45 Baso % (Auto) 0.5 % (0.3-1.7) 05/30/17 03:45 Nucleat RBC Rel Count 0.0 % (0.0-0.2) 05/30/17 03:45 Absolute Neuts (auto) 3.99 10^3/uL (1.70-6.50) 05/30/17 03:45 Absolute Lymphs (auto) 1.23 10^3/uL (1.00-3.00) 05/30/17 03:45 Absolute Monos (auto) 0.39 10^3/uL (0.30-0.80) 05/30/17 03:45 Absolute Eos (auto) 0.20 10^3/uL (0.03-0.40) 05/30/17 03:45 Absolute Basos (auto) 0.03 10^3/uL (0.02-0.10) 05/30/17 03:45 Absolute Nucleated RBC 0.00 10^3/uL (0-0.01) 05/30/17 03:45 Immature Gran % 0.3 % (0.0-1.1) 05/30/17 03:45 Immature Gran # 0.02 10^3/uL (0.00-0.10) 05/30/17 03:45 PT 14.8 SEC (12.0-15.0) 05/30/17 04:45 INR 1.14 (0.83-1.16) 05/30/17 04:45 APTT 32.1 SEC (23.0-38.0) 05/30/17 04:45 POC Sodium 139 mEq/L (135-145) 05/30/17 03:40 Sodium 138 mEq/L (135-145) 05/30/17 03:45 POC Potassium 3.3 mEq/L (3.3-5.0) 05/30/17 03:40 Potassium 3.5 mEq/L (3.5-5.2) 05/30/17 03:45 POC Chloride 98 mEq/L (97-110) 05/30/17 03:40 Chloride 101 mEq/L (97-110) 05/30/17 03:45 Carbon Dioxide 24 mEq/l (22-31) 05/30/17 03:45 Anion Gap 13 mEq/L (8-16) 05/30/17 03:45 POC BUN < 3 mg/dL (7-23) L 05/30/17 03:40 BUN < 2 mg/dL (7-23) L 05/30/17 03:45 Creatinine 0.6 mg/dL (0.7-1.3) L 05/30/17 03:45 POC Creatinine 0.7 mg/dL (0.7-1.3) 05/30/17 03:40 Estimated GFR > 60 05/30/17 03:45 Glucose 85 mg/dL (70-100) 05/30/17 03:45 POC Glucose 88 mg/dL (70-100) 05/30/17 03:40 Calcium 8.0 mg/dL (8.5-10.4) L 05/30/17 03:45 Troponin I < 0.012 ng/mL (0.000-0.034) 05/30/17 03:45 Ethyl Alcohol < 10 mg/dL (0-10) 05/30/17 03:45 Imaging Review: prelim CT angio HEAD: 1. Widely intracranial circulation. No evidence of embolic disease. 2. pATENT Sag sinus 3. No enhancing lesion prelim CT angio Neck: 1. No occlusion, dissection, or flow limiting stenosis 2. Bilateral carotid plaque ~30% stenosis bilateral prelim CT HEAD: 1. No bleed or ischemia 2. Cerebellar atrophy similar jan 2017 Visualized and Interpreted EKG results: Yes EKG Interpretation: Positive for: normal sinsus rhythm Assessment & Plan Assessment: 57 yo M w/ hx of stroke and ETOH abuse presents with wake up symptoms of increased R sided weakness. Plan: 1. R sided weakness - Patient reports this as weakness beyond his abnormal baseline. This may represent new ischemic stroke or TIA although findings are quite subtle on exam. Work-up thus far (CT, CTA Head/Neck) unremarkable. - MRI brain w/o - TTE w/ bubble - Monitor on telemetry - PT, OT, PSYCHIATRIC AIDE INSTRUCTOR evaluations - Check lipid panel, A1c - Neurology consult placed 2. C. Diff - Patient reports being diagnosed with C. Diff about 2 months ago. He is very unclear about his timeline and inspection of his prescription bottles shows clearly poor compliance. He is still having frequent liquid stools with some blood and mucus per his report. - Continue Vancomycin 125 mg PO q6h - Recheck C. Diff toxin - Requesting records from [facility] in an attempt to clear up timeline 3. Hx of ETOH abuse - Last drink was 5 days ago. Patient states he went through withdrawal at the [facility]. No signs of w/d currently. 4. Hx of stroke - Patient reports hx of stroke in 2013 with resultant mild R- sided weakness. 5. HTN - Patient states he is not taking meds although he has a bottle of labetalol in his possessions. Normotensive while here so far. Diet - Regular pending swallow eval Code - Full Ppx - SCDs Dispo - Admit to observation status
[2017-05-30] MEDS: VANCOMYCIN 125 MG/2.5 ML UDL PO SCH ×4 (08:00→20:25)
[2017-05-30] MEDS ORDERED: ASPIRIN EC 81 MG TAB PO SCH (10:15)
--- NOTE | 2017-05-30 10:31 | GCON ---
[f rep st] CONSULTATION NEUROLOGY CONSULT REFERRING PHYSICIAN: David Menjivar MD CHIEF COMPLAINT: Stroke. HISTORY OF PRESENT ILLNESS: The patient is a very pleasant, 57-year-old gentleman who is an alcoholic and homeless currently who was recently at the [facility] and went through alcohol withdrawal recently and has been sober for 4 or 5 days now. He states he has been through the withdrawal at the [facility]. Last night after going to bed at 7:30 p.m., he woke up around 3 or 4 a.m. with his right foot feeling numb, and a holocephalic significant headache. Then when he tried to get up, he noticed he had weakness in his right arm and right leg. He came under a stroke alert and was evaluated in our emergency department. Ethyl alcohol was less than 10 in the ER. He was evaluated by Dr. Busch from [facility], who did not recommend tPA due to this being a wake-up symptomatology event. Angiography was recommended. There was no large vessel occlusion. No significant carotid stenosis. The patient feels like his weakness is a little bit improved. He states he had a stroke 3 years ago and was told to take aspirin, but does not take it regularly due to his lifestyle and alcohol use. Hemoglobin A1c is pending. Lipids are pending. REVIEW OF SYSTEMS: A 10-point review of systems was done only pertinent to the HPI. For Past Medical History, Social History, Family History, Allergies, Home Medications, see Dr. Menjivar's history and physical. PHYSICAL EXAM: VITAL SIGNS: Blood pressure 127/82, temperature 36.7, heart rate 84. GENERAL: In no acute distress. Very pleasant. He is on contact precautions for C difficile. NEUROLOGIC: Higher mental function: He is awake and alert and no aphasia. Cranial nerve exam: Extraocular movements are full. Facial strength is symmetric on active testing. On general motor exam, the patient had mild to moderate right-sided weakness in his right arm and right leg. There was some decreased participation with the exam. Light touch was subjectively normal this morning. IMPRESSION/PLAN: 1. Right-sided weakness. 2. Alcohol abuse. The patient is certainly at risk for cerebrovascular disease based on his alcoholism. He is scheduled for MRI later this morning and has had an echocardiogram. We will review those results when available. There has been no atrial fibrillation on telemetry. He needs to be on a baby aspirin daily as previously recommended. I will put in that order. Ultimately, he will need tight control of his vascular risk factors, alcohol cessation for his long-term secondary prevention of stroke. He needs to be on daily anti-platelet therapy and will likely need ECG monitoring post discharge starting with a 30-day event monitor to screen for paroxysmal atrial fibrillation. seventy minutes floor time today reviewing records, direct counseling the patient, and coordination of care. Will follow up on the above. Thank you for this consultation. /[id number]/MODL MTDD
[2017-05-30] MEDS: ONDANSETRON DISINTEGRATING 4 MG TAB PO PRN ×2 (11:52→16:39)
[2017-05-30] MEDS: ACETAMINOPHEN 325 MG TAB PO PRN ×3 (11:53→20:34)
--- NOTE | 2017-05-30 14:06 | ECHO ---
[email or web address] [address] [address] Main: [phone] Fax: Transthoracic Echocardiogram Name: KEIKO SANTOS MR#: [id number] Study Date: 05/30/2017 Study Time: 09:21 AM Date of : 1960 Age: 57 year(s) Height: 182.9 cm (72 in.) Weight: 83.01 kg (183 lb.) BSA: 2.05 m2 Gender: Male Examination: Echo with Agitated Saline Indication: ischemic stroke bubble Image Quality: Technically Difficult Contrast: I.V. dose of agitated saline Requested by: David Rutledge BP: 127 mmHg/82 mmHg Heart Rate: Rhythm: Indication: ischemic stroke bubble Procedure Staff Page Makeup System Operator: Eva Brizuela Reading Physician: Mckenzie Escamilla Requesting Provider: Conclusions: Normal size left ventricle. No LV hypertrophy. Normal global systolic LV function. EF is 68 %. No regional wall motion abnormality. Grade 1 diastolic dysfunction (abnormal relaxation). Normal size right ventricle. Normal RV function. An agitated saline study was performed and was negative for intracardiac shunting. No significant valvular disease No significant change compared with 01/23/2017 study Measurements: Chambers Valvular Assessment AV/MV Valvular Assessment TV/PV Normal Normal Normal Name Value Range Name Value Range Name Value Range Ao Carolee (MM): 3.3 cm (2.2 cm-3.7 AV Vmax: 1.20 m/s (1 m/s-1.7 PV Vmax: 0.86 m/s (0.6 m/s-0.9 cm) m/s) m/s) IVSd (2D): 0.9 cm (0.6 cm-1.1 AV maxP mmHg ( - ) PV PGmax: 3 mmHg ( - ) cm) LVOT Vmax: 0.85 m/s (0.7 m/s-1.1 LVDd (2D): 4.5 cm (4.2 cm-5.9 m/s) cm) MV E Vmax: 0.51 m/s ( - ) LVDs (2D): 2.8 cm (2.1 cm-4 MV A Vmax: 0.58 m/s ( - ) cm) MV E/A: 0.88 ( - ) LVPWd (2D): 1.1 cm (0.6 cm-1 cm) LVEF (MOD4): 68 % (>=55 %) RVDd(2D): 2.7 cm (1.9 cm-3.8 cmmm) Patient: KEIKO SANTOS Study Date: 05/30/2017 Page 1 of 2 09:21 AM Continued Measurements: Chambers Valvular Assessment AV/MV Name Value Name Value LADs Lon.8 cm MV DecTime: 246 m/s LA Area: 15.5 cm2 MV E/E' Septal: 6.80 LA Volume: 36 ml MV E/E' Lateral: 5.80 LA Volume Index: 17.6 ml/m2 RA Area: 10.5 cm2 Findings: Left Ventricle: Normal size left ventricle. No LV hypertrophy. Normal global systolic LV function. EF is 68 %. No regional wall motion abnormality. Grade 1 diastolic dysfunction (abnormal relaxation). Right Ventricle: Normal size right ventricle. Normal RV function. Left Atrium: The left atrium is normal in size. An agitated saline study was performed and was negative for intracardiac shunting. Right Atrium: The right atrium is normal in size. Mitral Valve: The mitral valve is normal in appearance and function. There is no significant mitral valve regurgitation. No mitral stenosis is present. Aortic Valve: The aortic valve is normal in appearance and function. There is no significant aortic valve regurgitation. No aortic valve stenosis is present. Tricuspid Valve: The tricuspid valve is normal in appearance and function. There is no tricuspid valve regurgitation. Pulmonary artery pressure is not obtained due to inadequate TR jet. Pulmonic Valve: The pulmonic valve is normal in appearance and function. There is no pulmonic regurgitation seen. Aorta: The aorta is normal. Normal size aortic root measuring 3.3 cm. Pericardium: Trivial pericardial effusion. There is pericardial fat. (No Signature Object) Patient: KEIKO SANTOS Study Date: 05/30/2017 Page 2 of 2 09:21 AM [id number]
--- NOTE | 2017-05-30 15:23 | HOSPPROG ---
Hospitalist Progress Note Assessment/Plan: Patient is a 57-year-old male with history of alcohol abuse hypertension and history of stroke presented with right-sided weakness. He also has a history of Clostridium difficile. Today is my 1st encounter with the patient. Chart reviewed. * right-sided weakness -an MRI shows no acute stroke -echocardiogram with bubble study does not show any type of intracardiac shunting -started on aspirin therapy -therapies are working with him including physical therapy occupational therapy and speech -hemoglobin A1c is stable -lipid panel pending and ordered for tomorrow * right upper neck sebaceous cyst, 3.2 cm in size * history of stroke with residual right-sided weakness * history of Clostridium difficile -resumed oral vancomycin -per staff he is having frequent loose stools -study here does not indicate he has C diff * hypertension * alcohol use and abuse -alcohol level was was not elevated -he has a history of drinking 1/2 gal of whiskey * homelessness -lost his job due to drinking and now is homeless * plan. He will work with physical therapy and occupational therapy. Will discuss with case management about a plan of care. Subjective: Joshua is requesting something to help him sleep tonight. Also is complaining of some numbness to his right foot that he says is new Objective: Vital Signs Temp Pulse Resp BP Pulse Ox 37.2 C 88 20 113/81 H 98 05/30/17 12:00 05/30/17 12:00 05/30/17 12:00 05/30/17 12:00 05/30/17 12:00 05/29/17 05/30/17 05/31/17 05:59 05:59 05:59 Intake Total 700 Output Total 100 Balance 600 PT 14.8 SEC (12.0-15.0) 05/30/17 04:45 INR 1.14 (0.83-1.16) 05/30/17 04:45 - Physical Exam Constitutional: no apparent distress, appears nourished, not in pain Eyes: PERRL Ears, Nose, Mouth, Throat: hearing normal Cardiovascular: regular rate and rhythym Respiratory: no respiratory distress Gastrointestinal: normoactive bowel sounds Skin: warm Musculoskeletal: generalized weakness Neurologic: AAOx3, CN II-XII Intact, other (Right hand spanish speaking nanny is slightly weaker than left. Right foot polyp is weaker than the left), No facial droop ICD10 Worksheet Patient Problems: Problems Problem Status Onset Right sided weakness Acute Alcohol abuse Acute Alcohol intoxication Acute Alcohol withdrawal Acute Alcoholic hepatitis Acute Clostridium difficile infection Acute ~01/23/17 EKG abnormality Acute GI bleed Acute Generalized weakness Acute
[2017-05-30] MEDS ORDERED: TEMAZEPAM 15 MG CAP PO PRN (15:56)
[2017-05-30] MEDS: CHOLESTYRAMINE/SUCROSE 4 GM PKT PO SCH (16:21)
[2017-05-30] MEDS: PANTOPRAZOLE SODIUM 40 MG TAB PO SCH (16:39)
--- NOTE | 2017-05-30 17:10 | ASMTCMCOM ---
CM Note CM Note Notes: Pt admitted with R sided weakness. Hx of CVA, etoh abuse. Pt recently at the [facility] and sober 5 days. He is homeless. A Medicaid application is pending. PT/OT are recommending SNF. CM will follow for d/c needs. Date Signed: 05/30/2017 05:09 PM Electronically Signed By:MUNDO Hope
[2017-05-30] MEDS ORDERED: MELATONIN 3 MG TAB PO SCH (21:00)
[2017-05-31] MEDS: VANCOMYCIN 125 MG/2.5 ML UDL PO SCH ×3 (05:24→15:48)
[2017-05-31] MEDS ORDERED: ASPIRIN EC 81 MG TAB PO SCH (06:00)
[2017-05-31 08:57] VITALS: BP 113/69
[2017-05-31] MEDS: CHOLESTYRAMINE/SUCROSE 4 GM PKT PO SCH (09:20)
[2017-05-31] MEDS: PANTOPRAZOLE SODIUM 40 MG TAB PO SCH (09:20)
--- NOTE | 2017-05-31 09:24 | HOSPPROG ---
Hospitalist Progress Note Assessment/Plan: Patient is a 57-year-old male with history of alcohol abuse hypertension and history of stroke presented with right-sided weakness. He also has a history of Clostridium difficile. * right-sided weakness -an MRI shows no acute stroke -echocardiogram with bubble study does not show any type of intracardiac shunting -started on aspirin therapy -therapies are working with him including physical therapy occupational therapy and speech -hemoglobin A1c is stable -patient doesn't tolerate any statin/ has tried it in the past -reviewed pvc monitor and patient is in sinus rhythm without any type of ectopy *high triglycerides -per patient this is better * right upper neck sebaceous cyst, 3.2 cm in size * history of stroke with residual right-sided weakness * history of Clostridium difficile -resumed oral vancomycin -loose stools resolved -study here does not indicate he has C diff * hypertension -stable * alcohol use and abuse -alcohol level was was not elevated -he has a history of drinking 1/2 gal of whiskey * homelessness -lost his job due to drinking and now is homeless * plan. dc to [facility] to get him f/u with [facility], will need to get f/u with [facility] for a holter monitor once he gets a place to live Subjective: Don has no complaints, wants to sleep. Objective: Vital Signs Temp Pulse Resp BP Pulse Ox 37.1 C 87 21 H 113/69 97 05/31/17 08:00 05/31/17 08:00 05/31/17 08:00 05/31/17 08:00 05/31/17 08:00 05/30/17 05/31/17 06/01/17 05:59 05:59 05:59 Intake Total 700 Output Total 100 Balance 600 PT 14.8 SEC (12.0-15.0) 05/30/17 04:45 INR 1.14 (0.83-1.16) 05/30/17 04:45 - Physical Exam Constitutional: no apparent distress, appears nourished, not in pain Eyes: PERRL Ears, Nose, Mouth, Throat: hearing normal Respiratory: no respiratory distress Skin: warm Musculoskeletal: generalized weakness Neurologic: AAOx3 Psychiatric: interacting appropriately ICD10 Worksheet Patient Problems: Problems Problem Status Onset Right sided weakness Acute Alcohol abuse Acute Alcohol intoxication Acute Alcohol withdrawal Acute Alcoholic hepatitis Acute Clostridium difficile infection Acute ~01/23/17 EKG abnormality Acute GI bleed Acute Generalized weakness Acute
[2017-05-31] MEDS: ACETAMINOPHEN 325 MG TAB PO PRN (09:26)
--- NOTE | 2017-05-31 11:03 | NEUROPROG ---
Assessment: 1. Right-sided weakness, resolved 2. Headache, resolved 3. Alcohol abuse 35 total minutes floor time; over 50% reviewing tests, coordination care and counseling regarding the patient's symptoms. We discussed that the symptoms may have represented post stroke recrudescence ( PSR), TIA or complicated migraine. The patient's previous outside diagnosis of stroke 3 years ago apparently caused the same symptoms on the right side. Therefore, the possibility of PSR was discussed in the setting of alcohol withdrawal. Going forward, he will be discharged on daily aspirin. The patient declined/ refused statin therapy. Hemoglobin A1c was stable. We recommended follow-up with cardiology as an outpatient for prolonged ECG monitoring. He will look into the logistics. He is agreeable. There was no atrial fibrillation while he was on telemetry in the hospital per report. He will likely discharge later today. We will sign off and follow up as needed. Thank you for this consultation. Please do not hesitate to call with any questions or changes in neurologic status with this patient. Subjective: Symptoms have resolved Objective: Vital Signs Temp Pulse Resp BP Pulse Ox 37.1 C 87 21 H 113/69 97 05/31/17 08:00 05/31/17 08:00 05/31/17 08:00 05/31/17 08:00 05/31/17 08:00 05/30/17 05/31/17 06/01/17 05:59 05:59 05:59 Intake Total 700 Output Total 100 Balance 600 PT 14.8 SEC (12.0-15.0) 05/30/17 04:45 INR 1.14 (0.83-1.16) 05/30/17 04:45 Awake and alert No aphasia No drift Allergies/Adverse Reactions: No Known Allergies Allergy (Unverified 05/30/17 04:28)
[2017-05-31 13:42] VITALS: PULSE 86; RESP 12; TEMP 99; O2SAT 98
--- NOTE | 2017-05-31 14:58 | GDS ---
[f rep st] DISCHARGE SUMMARY DISCHARGE DIAGNOSES: 1. Right-sided weakness. 2. High triglycerides. 3. Right upper neck sebaceous cyst. 4. History of stroke with residual right-sided weakness. 5. History of Clostridium difficile. 6. Hypertension. 7. Alcohol use and abuse. 8. Homelessness. CONSULTATION: Dr. Nasir Cruz. HISTORY OF PRESENT ILLNESS: Briefly, the patient is a 57-year-old male with a history of alcohol abuse, hypertension, and a history of stroke. He presented in the emergency room with right-sided weakness. HOSPITAL COURSE (PER PROBLEM): 1. Right-sided weakness: An MRI showed no acute stroke. Echocardiogram with bubble study does not show any type of intracardiac shunting. He is on aspirin therapy. He has declined statin therapy because it makes him ache. His hemoglobin A1c is stable. He has been in sinus rhythm throughout his stay. 2. High triglycerides: Per patient, this is better. He prefers no treatment. 3. Right upper neck sebaceous cyst: Further followup with [facility]. 4. History of stroke: He appears to be at his baseline with some residual right-sided weakness. 5. History of Clostridium difficile. He had a C diff PCR checked here; this was negative. He can finish up his dosing of vancomycin that he has at home. 6. Hypertension: Stable. 7. Alcohol use and abuse: His alcohol level is not elevated on admission. He has a history of drinking a half gallon of whiskey. He realizes this is impacting his health. 8. Homelessness: A bed at the snf has been reserved. DISCHARGE CONDITION: Stable. Blood pressure 113/69, O2 sat's in room air 97%, respiratory rate 20, pulse 87, temperature 37.1 Celsius. MEDICATIONS AT DISCHARGE: Please see the EMR. DISCHARGE INSTRUCTIONS: 1. Further followup with [facility]. Case management is working on a followup appointment. 2. Follow up with Cardiology. He should get a Holter monitor when he gets a place to live. 3. Continue aspirin daily. 4. Recommended cessation of alcohol. /[id number]/MODL MTDD
--- NOTE | 2017-05-31 16:42 | ASMTCMCOM ---
CM Note CM Note Notes: Pt medically stable for d/c, [facility] formally d/c pt so he is unable to return. [facility] alf bed reserved. Pt transported via cab voucher. Pt scheduled for follow up w [facility] 06/01/17 at 10am. Date Signed: 05/31/2017 04:41 PM Electronically Signed By:MUNDO Boothe
--- NOTE | 2017-06-01 10:20 | ASDISCHSUM ---
Discharge Information Plan Status:Homeless/Snf Medically Cleared to Leave: Discharge Date:05/31/2017 04:40 PM CM D/C Disposition: ADT D/C Disposition:Home, Routine, Self-Care Projected Discharge Date:05/31/2017 04:40 PM Transportation at D/C:Cab Voucher Discharge Delay Reason: Follow-Up Date:05/31/2017 04:40 PM Discharge Slot: Final Diagnosis: Placement Information Patient Contact Information Contact Name:RAGINI Relationship: Address: Home Phone: Work Phone: City: Alternate Phone: State/i.Sec Code: Email: Financial Information Financial Class:Self-Pay Primary Plan Desc:SELF PAY Primary Plan Number: Secondary Plan Desc: Secondary Plan Number: Assessment Information [facility] CM Progress Note CM Note CM Note Notes: Pt admitted with R sided weakness. Hx of CVA, etoh abuse. Pt recently at the [facility] and sober 5 days. He is homeless. A Medicaid application is pending. PT/OT are recommending SNF. CM will follow for d/c needs. Date Signed: 05/30/2017 05:09 PM Electronically Signed By:MUNDO Hope [facility] CM Progress Note CM Note CM Note Notes: Pt medically stable for d/c, The [facility] formally d/c pt so he is unable to return. [facility] custodial bed reserved. Pt transported via cab voucher. Pt scheduled for follow [facility] w [facility]17 at 10am. Date Signed: 05/31/2017 04:41 PM Electronically Signed By:MUNDO Boothe Intervention Information
== END 2017-05-31 16:40 | disposition home or self-care (01) ==
LOC: EDUNIT# → F3N 05:52
PROVIDERS: ADMIT Student in an Organized Health Care Education/Training Program; ATTEND Internal Medicine
DX: R53.1 Weakness (principal); I69.398 Other sequelae of cerebral infarction; I65.29 Occlusion and stenosis of unspecified carotid artery; G47.00 Insomnia, unspecified; I11.0 Hypertensive heart disease with heart failure; I50.30 Unspecified diastolic (congestive) heart failure; F10.10 Alcohol abuse, uncomplicated; F17.210 Nicotine dependence, cigarettes, uncomplicated; L72.3 Sebaceous cyst; A04.72 Enterocolitis due to Clostridium difficile, not specified as recurrent; E78.00 Pure hypercholesterolemia, unspecified; Z91.14 Patient's other noncompliance with medication regimen; Z59.0 Homelessness
CPT/HCPCS: 80305; 82947-QW; 92523-GN; 97161-GP; 97166-GO; 97530-GP; 97535-GO; G0378; G0480; J2405

== ENCOUNTER 2017-05-31 18:00 | Emergency (ER) | payer SELFPAY ==
[2017-05-31 18:04] VITALS: BP 124/90; PULSE 106; RESP 18; TEMP 97.9; O2SAT 97
--- NOTE | 2017-05-31 18:12 | EDPHY ---
H & P Stated Complaint: weakness HPI/ROS: CHIEF COMPLAINT: Weakness HISTORY OF PRESENT ILLNESS: The patient is a 57 y/o male with a history of hypertension, alcohol abuse, and stroke complaining of weakness. He has right-sided weakness related to a stroke in the remote past. He was admitted to the hospital yesterday night, , for worsening right-sided weakness. He had a full evaluation for stroke during that admission. Brain MRI was negative for acute stroke. He also had angiography. Upon discharge today at 12:00, he had a senior living bed reserved. However, when he presented to the senior living he was informed that he would not be accepted there because he has not had a TB test done. He was told that he was not eligible for the [facility]. He has now returned to the ED and is still reporting continued weakness. Since being discharged he has felt more weak and tired, making it difficult to walk. He reports that the homeless senior living would not accept him until he had a TB test performed. He is also complaining of lower back pain and difficulty sitting. He fell on , 6 days ago. He is not aware of new numbness. He has not had bowel or bladder problems. He is sober from alcohol for 6 days. Does not use a walker or a cane. Denies chest pain, shortness of breath, abdominal pain, fevers or other pertinent symptoms. REVIEW OF SYSTEMS: A ten point review of systems was performed and is negative with the exception of the items mentioned in the HPI. Past medical history: 1. Stroke with baseline right-sided weakness 2. C. diff 3. Hypertension 4. Hyperlipidemia 4. Alcohol abuse Past surgical history: Denies Family history: Denies Social history: Transient, single, smoker General Appearance: Alert. Vital signs reviewed. Heart rate 106, blood pressure 124/90 at triage. Eyes: Pupils equal and round, no conjunctival injection, no discharge. Anicteric. ENT, Mouth: Mucous membranes are moist, no oropharyngeal erythema or edema. Neck: Soft tissue mass right of the c-spine which is consistent a sebaceous mass on prior imaging. No lymphadenopathy, supple. Respiratory: Lungs are clear to auscultation; no wheezes, rales, or rhonchi. Cardiovascular: Regular rate and rhythm; no murmur, rub, or gallop. Gastrointestinal: Abdomen is soft and nontender, no masses or organomegaly, bowel sounds normal. Skin: Warm and dry, no rashes on exposed skin, normal color. Back: Mild mid-lumbar spine tenderness with tenderness in the paraspinous muscles. Scoliosis. No CVAT. Extremities: No lower extremity edema, no calf tenderness or swelling. Neurological: Alert and oriented. Moving all four extremities easily and equally. Strength is 4+/5 right upper extremity, 5/5 left upper extremity, 4+ over 5 right lower extremity, 5/5 left lower extremity. Sensation is intact to light touch over all 4 extremities. Deep tendon reflexes are 3+ left knee, no knee jerk on the right, 3+ both biceps. Gait is ataxic with a limp. Psychiatric: Normal affect. - Personal History Current Tetanus Diphtheria and Acellular Pertussis (TDAP): Unsure - Medical/Surgical History Hx Asthma: No Hx Chronic Respiratory Disease: No Hx Diabetes: No Hx Cardiac Disease: Yes Hx Renal Disease: No Hx Cirrhosis: No Hx Alcoholism: Yes Hx HIV/AIDS: No Hx Splenectomy or Spleen Trauma: No Other PMH: HTN, ETOH, CVA 2013 , hypercholesterolemia, current smoker, cdiff jan 2017, trouble hearing out of right ear - Social History Smoking Status: Heavy smoker Constitutional: Initial Vital Signs Temperature (C) 36.6 C 05/31/17 18:03 Heart Rate 106 H 05/31/17 18:03 Respiratory Rate 18 05/31/17 18:03 Blood Pressure 124/90 H 05/31/17 18:03 O2 Sat (%) 97 05/31/17 18:03 O2 Delivery Mode Room Air Allergies/Adverse Reactions: No Known Allergies Allergy (Unverified 05/30/17 04:28) Home Medications: Medication Instructions Recorded Acetaminophen [Tylenol 325mg (*)] 325 mg PO BID PRN 05/30/17 Cholestyramine (with Sugar) 4 gm PO BIDMEAL 05/30/17 [Cholestyramine Packet] Vancomycin [Vancomycin (*)] 125 mg PO Q6 05/30/17 Aspirin EC [Aspirin EC 81 mg (*)] 81 mg PO DAILY@0600 tab 05/31/17 Melatonin [Melatonin 3 MG (*)] 3 mg PO HS tab 05/31/17 Medical Decision Making - Diagnostics Imaging: I viewed and interpreted images myself ED Course/Re-evaluation: The patient is a 57 y/o male presenting with right-sided weakness and low back tenderness. He fell last week. Because of this recent fall I am ordering a lumbar spine x-ray. 1941: I reviewed the patient's lumbar spine x-ray; he has scoliosis, significant DJD, all of which appears chronic. I spoke with the radiologist who is been able to compare this film to a previous x-ray and agrees that the changes are not acute. No fracture or dislocation. I do not feel that additional radiographic workup is needed. I do not think that he has an acute change in his strength. He might benefit from a cane or other assistive device but he does not want to use a cane and tells me that he uses his suitcase, which he pulls behind him all the time, as a support. 2009: Reassessed patient and discussed imaging findings. 650mg PO Tylenol and 400mg PO Ibuprofen administered. He is medically [facility]. Emergency department nurse spoke with the [facility] and the [facility] and was told that he would be eligible to [facility] a [facility] tonight, without TB testing, as long as he had a note stating that he was medically clear. Such a note has been provided. Taxi is being provided to take [facility] to [facility]. Return precautions provided; patient is comfortable with this plan. I note that he was tachycardic at triage. He had a regular heart rate at the time of my examination. He has a history of alcohol abuse--he tells me that he has not had any alcohol for the past 6 days. During that [facility]. I think it unlikely that his vital signs indicate withdrawal tonight and, as noted, he did not have tachycardia at the time of my exam. Differential Diagnosis: Back pain including but not limited to muscular pain, herniated disc, spine fracture, intra-abdominal causes and urinary tract infection. - Data Points Medications Given: Discontinued Medications Acetaminophen (Tylenol) 650 mg PO EDNOW ONE Stop: 05/31/17 20:13 Last Admin: 05/31/17 20:36 Dose: 650 mg Chlordiazepoxide (Librium 25 Mg Prepack#6) 1 btl TAKEHOME EDNOW ONE Stop: 05/31/17 22:55 Last Admin: 05/31/17 22:58 Dose: 1 btl Ibuprofen (Motrin) 400 mg PO EDNOW ONE Stop: 05/31/17 20:13 Last Admin: 05/31/17 20:36 Dose: 400 mg Departure - Departure Disposition: Home, Routine, Self-Care Clinical Impression: Weakness Low back pain Qualifiers: Chronicity: chronic Back pain laterality: right Sciatica presence: without sciatica Qualified Code(s): M54.5 - Low back pain; G89.29 - Other chronic pain; G89.29 - Other chronic pain Condition: Good Instructions: Weakness (ED), Lower Back Exercises (ED), Chronic Back Pain (ED) Additional Instructions: This patient has been seen in the [facility] Emergency Department , and is medically clear to stay in the [facility] on 04/30/18. Keep your appointment with [facility]. They can preform a TB test. Return to the Emergency Department for fever, chest pain, shortness of breath, increasing pain or other worsening of condition. Referrals: [facility],. [Clinic] - As per Instructions Report Scribed for: Ana Rosa Ceullar Report Scribed by: Sinai Salguero Date of Report: 05/31/17 Time of Report: 18:13 Physician Review and Approval Statement: 05/31/17 18:12 Portions of this note were transcribed by the medical practice administrator. I, Dr. Ana Rosa Ceullar, personally performed the history, physical exam, and medical decision- making; and confirmed the accuracy of the information in the transcribed note.
[2017-05-31] MEDS ORDERED: ACETAMINOPHEN 325 MG TAB PO ONE (20:12)
[2017-05-31] MEDS ORDERED: IBUPROFEN 200 MG TAB PO ONE (20:12)
[2017-05-31] MEDS ORDERED: CHLORDIAZEPOXIDE 25MG PREPK#6 BTL TAKEHOME ONE (22:54)
== END 2017-05-31 20:33 | disposition home or self-care (01) ==
LOC: EDUNIT#
DX: R53.1 Weakness (principal); M54.5 Low back pain; G89.29 Other chronic pain; I10 Essential (primary) hypertension; F17.200 Nicotine dependence, unspecified, uncomplicated; Z79.82 Long term (current) use of aspirin; Z86.73 Personal history of transient ischemic attack (TIA), and cerebral infarction without residual deficits

== ENCOUNTER 2017-06-03 08:53 | Observation (INO) | payer MEDICAID, OTHER ==
[2017-06-03] MEDS ORDERED: NS 1,000 ML IV ONE (09:21)
--- NOTE | 2017-06-03 09:24 | EDPHY ---
H & P Stated Complaint: nausea, vomiting, weakness Time Seen by Provider: 06/03/17 09:09 HPI/ROS: CHIEF COMPLAINT: "I'm falling, I've got diarrhea again " HISTORY OF PRESENT ILLNESS: 57-year-old male with medical history significant for right-sided weakness, history of CVA, C diff history, homelessness, recent hospitalization, arrives via ambulance from the homeless senior care complaining of return of multiple episodes of diarrhea since last evening, inability care for self, weakness, falling, unable to ambulate REVIEW OF SYSTEMS: A ten point review of systems was performed and is negative with the exception of the items mentioned in the HPI PAST MEDICAL & SURGICAL HISTORY: Right-sided weakness. Hypertriglyceridemia. CVA history. C diff history. Hypertension. Homelessness. Alcohol use, sober for approximately 1 week. SOCIAL HISTORY: History of alcoholism, sober x1 week PHYSICAL EXAM (Prior to examination, patient consented to physical exam, hands were washed and my usual and customary physical exam procedures followed) 1) GENERAL: Poorly kept, alert and oriented. Appears to be in no acute distress. GCS 15 2) HEAD: Normocephalic, atraumatic 3) HEENT: Pupils equal, round, reactive to light bilaterally. Sclera anicteric. Nasopharynx, oropharynx, clear, no lesions. Dry mucous membrane 4) NECK: Full range of motion, no meningeal signs. 5) LUNGS: Clear auscultation bilaterally, no wheezes, no rhonchi, no retractions. 6) HEART: Regular rate and rhythm, no murmur, no heave, no gallop. 7) ABDOMEN: No guarding, no rebound, no focal tenderness, negative McBurney's, negative Ko's, negative Rovsing's, negative peritoneal sign, unable to elicit any abdominal pain on exam 8) MUSCULOSKELETAL: Moving all extremities, no focal areas of tenderness, no obvious trauma. No peripheral edema or discoloration. 9) BACK: No CVA tenderness, no midline vertebral tenderness, no fluctuance, no step-off, no obvious trauma, no visual or palpable abnormality. 10) SKIN: No rash, no petechiae. 11) Psychiatric: Patient is oriented X 3, there is no agitation. DIFFERENTIAL DIAGNOSIS: In no particular order including but not limited to encephalopathy, CVA, failure to thrive, malingering - Personal History Current Tetanus/Diphtheria Vaccine: No Current Tetanus Diphtheria and Acellular Pertussis (TDAP): No - Medical/Surgical History Hx Asthma: No Hx Chronic Respiratory Disease: No Hx Diabetes: No Hx Cardiac Disease: Yes Hx Renal Disease: No Hx Cirrhosis: No Hx Alcoholism: Yes Hx HIV/AIDS: No Hx Splenectomy or Spleen Trauma: No Other PMH: HTN, ETOH, CVA 2013 , hypercholesterolemia, current smoker, cdiff jan 2017, trouble hearing out of right ear - Social History Smoking Status: Heavy smoker Constitutional: Initial Vital Signs Temperature (C) 36.7 C 06/03/17 09:03 Heart Rate 81 06/03/17 09:03 Respiratory Rate 18 06/03/17 09:03 Blood Pressure 112/81 H 06/03/17 09:03 O2 Sat (%) 99 06/03/17 09:03 O2 Delivery Mode Room Air Allergies/Adverse Reactions: No Known Allergies Allergy (Verified 06/03/17 09:03) Home Medications: Medication Instructions Recorded Vancomycin [Vancomycin (*)] 125 mg PO Q6 05/30/17 Medical Decision Making ED Course/Re-evaluation: 11:02 a.m. Patient has been observed in the ER for over 2 hr. I do not think he is encephalopathic. Discussed his laboratory studies which are generally consistent with prior levels. The emergency department behavioral health case manager has been closely involved in his case, has reviewed his in patient case management notes. Interviewing prior case management notes is not completely clear why he was not discharged to a penitentiary facility as this was mentioned in his case management notes. Case management and I discussed the possibility of malingering behavior. He currently states that he is unable to care for himself. I have observed him in the ER and he is unable to ambulate without at least 2 staff members and I do not think that discharge from the emergency department is appropriate at this time. He does think that he necessitates SNF admission which would require hospitalization. I spoke with the hospitalist, Morena at this time, will plan on admitting to Dr. Vanessa Nova. Care of patient under supervision of primary Supervising physician Dr Jose Corral with whom I discussed case. - Data Points Laboratory Results: Laboratory Results 06/03/17 10:05 06/03/17 08:55 06/03/17 06/03/17 06/03/17 10:05 08:55 08:55 WBC 4.75 10^3/uL 10^3/uL REJ (3.80-9.50) RBC 2.88 10^6/uL L 10^6/uL REJ (4.40-6.38) Hgb 9.5 g/dL L g/dL REJ (13.7-17.5) Hct 28.6 % L % REJ (40.0-51.0) MCV 99.3 fL fL REJ (81.5-99.8) MCH 33.0 pg pg REJ (27.9-34.1) MCHC 33.2 g/dL g/dL REJ (32.4-36.7) RDW 16.1 % H % REJ (11.5-15.2) Plt Count 151 10^3/uL 10^3/uL REJ (150-400) MPV 10.8 fL fL REJ (8.7-11.7) Neut % (Auto) 65.5 % % REJ (39.3-74.2) Lymph % (Auto) 19.4 % % REJ (15.0-45.0) [place] % (Auto) 12.2 % % REJ (4.5-13.0) Eos % (Auto) 2.1 % % REJ (0.6-7.6) Baso % (Auto) 0.6 % % REJ (0.3-1.7) Nucleat RBC Rel Count 0.0 % % REJ (0.0-0.2) Absolute Neuts (auto) 3.11 10^3/uL 10^3/uL REJ (1.70-6.50) Absolute Lymphs (auto) 0.92 10^3/uL L 10^3/uL REJ (1.00-3.00) Absolute Monos (auto) 0.58 10^3/uL 10^3/uL REJ (0.30-0.80) Absolute Eos (auto) 0.10 10^3/uL 10^3/uL REJ (0.03-0.40) Absolute Basos (auto) 0.03 10^3/uL 10^3/uL REJ (0.02-0.10) Absolute Nucleated RBC 0.00 10^3/uL 10^3/uL REJ (0-0.01) Immature Gran % 0.2 % % REJ (0.0-1.1) Immature Gran # 0.01 10^3/uL 10^3/uL REJ (0.00-0.10) Sodium 141 mEq/L mEq/L (135-145) Potassium 4.2 mEq/L mEq/L (3.5-5.2) Chloride 102 mEq/L mEq/L (97-110) Carbon Dioxide 23 mEq/l mEq/l (22-31) Anion Gap 16 mEq/L mEq/L (8-16) BUN 3 mg/dL L mg/dL (7-23) Creatinine 0.7 mg/dL mg/dL (0.7-1.3) Estimated GFR > 60 Glucose 75 mg/dL mg/dL (70-100) Calcium 8.6 mg/dL mg/dL (8.5-10.4) Total Bilirubin 1.6 mg/dL H mg/dL (0.1-1.4) Conjugated Bilirubin 1.1 mg/dL H mg/dL (0.0-0.5) Unconjugated Bilirubin 0.5 mg/dL mg/dL (0.0-1.1) AST 135 IU/L H IU/L (17-59) ALT 50 IU/L IU/L (21-72) Alkaline Phosphatase 152 IU/L H IU/L (38-126) Total Protein 6.4 g/dL g/dL (6.3-8.2) Albumin 3.3 g/dL L g/dL (3.5-5.0) Lipase 40 IU/L IU/L (23-300) Medications Given: Discontinued Medications Sodium Chloride (Ns) 1,000 mls @ 0 mls/hr IV ONCE ONE PRN Reason: Wide Open Stop: 06/03/17 09:22 Last Admin: 06/03/17 09:31 Dose: 1,000 mls Departure - Departure Disposition: [facility] In[facility] Acute Clinical Impression: Generalized weakness, Adult failure to thrive Condition: Fair
[2017-06-03 10:20] LABS: PLATELET COUNT 151 10^3/uL (150-400)
[2017-06-03] MEDS ORDERED: ONDANSETRON 4 MG/2 ML VIAL IVP PRN (11:48)
[2017-06-03] MEDS ORDERED: ONDANSETRON DISINTEGRATING 4 MG TAB PO PRN (11:48)
--- NOTE | 2017-06-03 12:23 | ASMTCMCOM ---
CM Note CM Note Notes: Pt presented to the ED via EMS from the homeless retirement after having two falls due to possibly dizziness, lightheadedness and weakness. Patient recently d/c'd 06/01/17 to a reserved bed at the retirement. Patient states he followed up with [facility] on 06/02/17 but had not set up an appt with [facility] yet (for possible holter monitor). ED provider does not feel patient is safe to discharge to the retirement due to recent falls, inability to care for himself or failure to thrive, due to continued right sided weakness, right foot drop (pt had CVA in 2013, was treated at [facility]) and diarrhea. 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 Patient states he has no friends or family in the area. Exact DC needs unknown but anticipate pt would best benefit from a SNF stay to get stronger with PT/OT. Pt has Medicaid and will need a ULTC initiated for SNF placement. Pt's first choice would be [facility] but states he has also been to [facility] in the past but "it smelled like urine." Pt states he has not drank alcohol since his last [facility] detox. Pt understands that if he were to be placed in SNF he would not be allowed to drink alcohol. Patient agreeable and appreciative for help. CM to follow. Date Signed: 06/03/2017 12:22 PM Electronically Signed By:Jazzy Cummings RN
[2017-06-03] MEDS ORDERED: LABETALOL HCL 100 MG TAB PO PRN (15:18)
--- NOTE | 2017-06-03 15:19 | PDGENHP ---
History and Physical - Chief Complaint fall - History of Present Illness 57 yo male with h/o etoh abuse and recent CVA presents to ED after falling down this morning. He reports diarrhea and vomiting this morning. He denies watery stool, describes a formed stool. Has some focal gas pains. Otherwise, no significant abdominal pain. No fevers. He has not had ongoing vomiting. He is staying at the homeless nursing home. He is sober for 10 days. He wants to go to a [facility] tomorrow and is hoping we can arrange this. History Information - Allergies/Home Medication List Allergies/Adverse Reactions: No Known Allergies Allergy (Verified 06/03/17 09:03) Home Medications: Vancomycin [Vancomycin (*)] 125 mg PO Q6 05/30/17 [Last Taken 06/03/17 07:15] Acetaminophen [Tylenol ES 500 mg (*)] 1,000 mg PO DAILY PRN 06/03/17 [Last Taken 06/02/17] Cholestyramine (with Sugar) [Cholestyramine Packet] 4 gm PO BID 06/03/17 [Last Taken Unknown] Labetalol HCl [Trandate 100 mg (*)] 100 mg PO BID PRN 06/03/17 [Last Taken Unknown] I have personally reviewed and updated: family history, medical history, social history, surgical history - Past Medical History CVA, hypertension Additional medical history: ETOH abuse. H/O CVA with right sided weakness. H/ O C diff - Surgical History Reports: no pertinent surgical hx - Family History Positive for: cancer - Social History Smoking Status: Heavy smoker Alcohol Use: Other (sober x10 days) Drug Use: None Additional social history: Staying at homeless nursing home. Wants to go to a [facility]. Review of Systems Review of Systems: ROS: 10pt was reviewed & negative except for what was stated in HPI & below Physical Exam Physical Exam: Temp Pulse Resp BP Pulse Ox 36.3 C 76 16 101/68 99 06/03/17 15:01 06/03/17 15:01 06/03/17 15:01 06/03/17 15:01 06/03/17 15:01 Constitutional: no apparent distress Eyes: PERRL Ears, Nose, Mouth, Throat: moist mucous membranes Cardiovascular: regular rate and rhythym Respiratory: no respiratory distress, clear to auscultation Gastrointestinal: normoactive bowel sounds, soft, non-tender abdomen Skin: warm Musculoskeletal: full muscle strength Neurologic: AAOx3 Psychiatric: interacting appropriately Lab Data & Imaging Review 06/03/17 10:05 06/03/17 08:55 WBC 4.75 10^3/uL (3.80-9.50) 06/03/17 10:05 RBC 2.88 10^6/uL (4.40-6.38) L 06/03/17 10:05 Hgb 9.5 g/dL (13.7-17.5) L 06/03/17 10:05 Hct 28.6 % (40.0-51.0) L 06/03/17 10:05 MCV 99.3 fL (81.5-99.8) 06/03/17 10:05 MCH 33.0 pg (27.9-34.1) 06/03/17 10:05 MCHC 33.2 g/dL (32.4-36.7) 06/03/17 10:05 RDW 16.1 % (11.5-15.2) H 06/03/17 10:05 Plt Count 151 10^3/uL (150-400) 06/03/17 10:05 MPV 10.8 fL (8.7-11.7) 06/03/17 10:05 Neut % (Auto) 65.5 % (39.3-74.2) 06/03/17 10:05 Lymph % (Auto) 19.4 % (15.0-45.0) 06/03/17 10:05 [place] % (Auto) 12.2 % (4.5-13.0) 06/03/17 10:05 Eos % (Auto) 2.1 % (0.6-7.6) 06/03/17 10:05 Baso % (Auto) 0.6 % (0.3-1.7) 06/03/17 10:05 Nucleat RBC Rel Count 0.0 % (0.0-0.2) 06/03/17 10:05 Absolute Neuts (auto) 3.11 10^3/uL (1.70-6.50) 06/03/17 10:05 Absolute Lymphs (auto) 0.92 10^3/uL (1.00-3.00) L 06/03/17 10:05 Absolute Monos (auto) 0.58 10^3/uL (0.30-0.80) 06/03/17 10:05 Absolute Eos (auto) 0.10 10^3/uL (0.03-0.40) 06/03/17 10:05 Absolute Basos (auto) 0.03 10^3/uL (0.02-0.10) 06/03/17 10:05 Absolute Nucleated RBC 0.00 10^3/uL (0-0.01) 06/03/17 10:05 Immature Gran % 0.2 % (0.0-1.1) 06/03/17 10:05 Immature Gran # 0.01 10^3/uL (0.00-0.10) 06/03/17 10:05 Sodium 141 mEq/L (135-145) 06/03/17 08:55 Potassium 4.2 mEq/L (3.5-5.2) 06/03/17 08:55 Chloride 102 mEq/L (97-110) 06/03/17 08:55 Carbon Dioxide 23 mEq/l (22-31) 06/03/17 08:55 Anion Gap 16 mEq/L (8-16) 06/03/17 08:55 BUN 3 mg/dL (7-23) L 06/03/17 08:55 Creatinine 0.7 mg/dL (0.7-1.3) 06/03/17 08:55 Estimated GFR > 60 06/03/17 08:55 Glucose 75 mg/dL (70-100) 06/03/17 08:55 Calcium 8.6 mg/dL (8.5-10.4) 06/03/17 08:55 Total Bilirubin 1.6 mg/dL (0.1-1.4) H 06/03/17 08:55 Conjugated Bilirubin 1.1 mg/dL (0.0-0.5) H 06/03/17 08:55 Unconjugated Bilirubin 0.5 mg/dL (0.0-1.1) 06/03/17 08:55 AST 135 IU/L (17-59) H 06/03/17 08:55 ALT 50 IU/L (21-72) 06/03/17 08:55 Alkaline Phosphatase 152 IU/L (38-126) H 06/03/17 08:55 Total Protein 6.4 g/dL (6.3-8.2) 06/03/17 08:55 Albumin 3.3 g/dL (3.5-5.0) L 06/03/17 08:55 Lipase 40 IU/L (23-300) 06/03/17 08:55 Specimen Hemolysis 184 06/03/17 08:00 Ethyl Alcohol < 10 mg/dL (0-10) 06/03/17 08:00 Assessment & Plan Assessment: Weakness - He has h/o CVA with residual right sided weakness. He was recently admitted for this and did not require SNF, but was instead d/c'd to the homeless nursing home. He now feels unable to care for himself and returns to the hospital request SNF placement. He has no new neurodeficits. -PT/OT evals -CM consult H/O CVA - cont ASA, pt refuses statin Diarrhea with H/O C diff - Reports formed stool to me. He is currently being treated with po vancomycin though I note a negative C diff test on 05/30/2017. - -stop vanc and if diarrhea recurs, send GI pathogen panel. Alcohol induced liver disease - stable Alcohol dependence - sober x10 days. Watch for w/d signs. Anemia - Chronic, stable. EGD 03/2017 showed gastritis, no active bleeding. -resume PPI therapy -outpt c-scope likely warranted Homelessness - CM consult Dispo - obs
--- NOTE | 2017-06-03 16:13 | ASMTCMCOM ---
CM Note CM Note Notes: ULTC-100 faxed to [facility] today, Med Data notified for Medicaid LTC luis f. Referrals sent to [facility], [facility] and [facility]. As Medicaid beds are limited in [facility], asked pt about [facility] and he refuses SNF in [facility], stated he [facility] to [facility]. Therapy evals pending. Date Signed: 06/03/2017 04:12 PM Electronically Signed By:MUNDO Boothe
[2017-06-03] MEDS ORDERED: VANCOMYCIN 125 MG/2.5 ML UDL PO SCH (18:00)
[2017-06-03] MEDS: ACETAMINOPHEN 325 MG TAB PO PRN (20:33)
[2017-06-03] MEDS: PANTOPRAZOLE SODIUM 40 MG TAB PO SCH (21:43)
[2017-06-03] MEDS: CHOLESTYRAMINE/SUCROSE 4 GM PKT PO SCH (21:43)
[2017-06-04] MEDS: CHOLESTYRAMINE/SUCROSE 4 GM PKT PO SCH (08:56)
[2017-06-04] MEDS: PANTOPRAZOLE SODIUM 40 MG TAB PO SCH (08:56)
[2017-06-04] MEDS: ACETAMINOPHEN 325 MG TAB PO PRN (11:00)
[2017-06-04 15:34] VITALS: BP 127/81; PULSE 91; RESP 16; TEMP 98.2; O2SAT 98
--- NOTE | 2017-06-04 16:59 | ASDISCHSUM ---
Discharge Information Plan Status:Homeless/Detention Medically Cleared to Leave: Discharge Date:06/04/2017 04:35 PM CM D/C Disposition:Home, Routine, Self-Care ADT D/C Disposition:Home, Routine, Self-Care Projected Discharge Date:06/06/2017 11:00 AM Transportation at D/C:Cab Voucher Discharge Delay Reason: Follow-Up Date:06/06/2017 11:00 AM Discharge Slot: Final Diagnosis: Placement Information Referral Type:*Group Home/SNF Referral ID:[id number] Provider Name: Address 1: Phone Number: Address 2: Fax Number: City: Selection Factors: State: Patient Contact Information Contact Name:RAGINI Relationship: Address: Home Phone: Work Phone: City: Alternate Phone: [facility]/[place] Code: Email: Financial Information Financial Class: Primary Plan 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 Patient recently d/c'd 06/01/17 to a reserved bed at the custodial. Patient states he followed up with [facility] on 06/02/17 but had not set up an appt with [facility] yet (for possible holter monitor). ED provider does not feel patient is safe to discharge to the custodial due to recent falls, inability to care for himself or failure to thrive, due to continued right sided weakness, right foot drop (pt had CVA in 2013, was treated at [facility]) and diarrhea. 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 Patient states he has no friends or family in the area. Exact DC needs unknown but anticipate pt would best benefit from a SNF stay to get stronger with PT/OT. Pt has Medicaid and will need a [facility] initiated for SNF placement. Pt's first choice would be [facility] but states he has also been to [facility] in the past but "it smelled like urine." Pt states he has not drank alcohol since his last [facility] detox. Pt understands that if he were to be placed in SNF he would not be allowed to drink alcohol. Patient agreeable and appreciative for help. CM to follow. Date Signed: 06/03/2017 12:22 PM Electronically Signed By:Jazzy Cummings RN [facility] CM Progress Note CM Note CM Note Notes: [id number] [facility] [employer], [facility] notified for Medicaid LTC luis f. Referrals sent to [facility], [facility], [facility] and [facility]. As Medicaid beds are limited in [facility], asked pt about [facility] and he refuses SNF in [facility], stated he would rather d/c back to the custodial than go to [facility]. Therapy ann pending. Date Signed: 06/03/2017 04:12 PM Electronically Signed By:MUNDO Boothe Case Management Discharge Plan Note Case Management Discharge Discharge Order Complete? Answers: Yes Patient to Obtain Answers: Independently Medications Transportation Arranged Answers: Taxi - Voucher Discharge Comments Notes: Pt was cleared by both PT/OT and therefore likely would not qualify for SNF; discussed at length w/victor manuel and Dr Nova who has dc'd pt and he will stay in custodial. Message left w/ [place] homeless custodial and hospital bed reserved. Cab voucher given to pt; attempted to use [facility] but window time of pickup was 10 minutes- 3.5 hours and pt would like to get to custodial by 5 to secure his bed. Pt said he has meeting tomorrow about transitional housing program which could be very beneficial to pt. Date Signed: 06/04/2017 04:58 PM Electronically Signed By:Sachi Trammell RN Intervention Information
--- NOTE | 2017-06-04 17:29 | GDS ---
[f rep st] DISCHARGE SUMMARY DISCHARGE DIAGNOSES: 1. Weakness. 2. History of cerebrovascular accident. 3. Alcoholic liver disease. 4. History of alcohol abuse, sober for 10 days. 5. Chronic anemia. 6. History of gastritis. 7. Homelessness. CONSULTANTS: None. HISTORY: For details, please see the History and Physical dated June 03, 2017. In brief, the patient is a 57-year-old homeless male, with a history of recent CVA and right-sided we akness, who returns to the emergency department after hospital discharge on May 31, reporting o ngoing weakness. He states he had a fall at the homeless correction. He also reports recurrent diarrhe a. He wishes to be admitted and be transferred to a detention facility. He was actually just admitted for weakness last week and was deemed to be independent in his activities of daily living. Thus, he did not qualify for a detention facility. He had a neurology consultation during this recent hospitalization, as well as a repeat brain MRI which was negative for an acute stroke. He sanchez s no focal neuro deficits. He was admitted to the hospital for therapy evaluations and consideration of placement. HOSPITAL COURSE: Patient was admitted to med/surg unit. He had no further diarrhea. A GI pathogen panel was negative for C difficile. His oral vancomycin that he was taking as an outpatient was disc ontinued. He was normotensive. Therapy evaluation was obtained and the patient was deemed independe nt in all of his activities. The case was reviewed with Case Management. Although we understand the patient wishes to be moved to a nursing facility, rather than be at the homeless correction, he actuall y does not meet criteria or have any skillable needs at this time. He is currently working with the [facility] on a transitional housing plan and he is encouraged to continue on this process. Si nce he is independent in his activities, we are unable to arrange for placement in a detention facility. DISPOSITION: Patient is discharged back to the [facility] in stable condition. FOLLOWUP: 1. [facility]. 2. Follow up with Case Management for transitional housing. 3. As previously directed on his recent discharge summary, he should follow up with Cardiology for c onsideration of outpatient Holter monitor. He can also follow up with General surgery for considerat ion of excision of the sebaceous cyst on his neck. DISCHARGE MEDICATIONS: Please see [employer] for completed outpatient medication list. He will contin ue all outpatient medications as previously prescribed. I reduced his labetalol to 50 mg twice daily from 100 mg twice daily given his low-meg blood pressures of 100 to 1-teens, and his reports of inte rmittent dizziness. I have also written for Protonix 40 mg p.o. b.i.d. based on a recent history of gastritis, which is currently untreated. He should continue daily aspirin for CVA prevention. /[id number]/MODL
== END 2017-06-04 16:35 | disposition home or self-care (01) ==
LOC: EDUNIT# → F3N 11:42
PROVIDERS: ADMIT Hospitalist; ATTEND Hospitalist
DX: R53.1 Weakness (principal); I69.398 Other sequelae of cerebral infarction; K70.30 Alcoholic cirrhosis of liver without ascites; F10.10 Alcohol abuse, uncomplicated; I10 Essential (primary) hypertension; D50.0 Iron deficiency anemia secondary to blood loss (chronic); Z59.0 Homelessness; Z91.81 History of falling; F17.210 Nicotine dependence, cigarettes, uncomplicated
CPT/HCPCS: 97161; 97165; G0378; G0480

== ENCOUNTER 2017-06-08 06:46 | Inpatient (IN) | payer MEDICAID ==
[2017-06-08] MEDS ORDERED: NS 1,000 ML IV ONE ×2 (06:49→21:13)
--- NOTE | 2017-06-08 06:55 | EDPHY ---
H & P Source: Patient, EMS - Medical/Surgical History Hx Asthma: No Hx Chronic Respiratory Disease: No Hx Diabetes: No Hx Cardiac Disease: Yes Hx Renal Disease: No Hx Cirrhosis: No Hx Alcoholism: Yes Hx HIV/AIDS: No Hx Splenectomy or Spleen Trauma: No Other PMH: HTN, ETOH, CVA 2013 , hypercholesterolemia, current smoker, cdiff jan 2017, trouble hearing out of right ear - Social History Smoking Status: Heavy smoker HPI/ROS: HPI CHIEF COMPLAINT: Stroke alert by EMS from the homeless group home, right-sided weakness, woke up with symptoms HISTORY OF PRESENT ILLNESS: This patient is a 57-year-old male, who I recently saw a on May 30 for stroke alert with a very similar presentation as his presentation this evening. He presents emergency room as a stroke alert from the homeless group home. He states that he woke up and noticed that his right side of his arm and leg were numb and tingling and felt weak. He still has the symptoms at this time upon arrival to the emergency room. He woke up with the symptoms he was last seen normal at 10:00 p.m.. He noticed it after he woke up he was lying on his left side and then when he went to go sit up he noticed his right side was weak and having tingling in his right upper extremity right lower extremity. Denies any chest pain or shortness of breath. This is a very similar presentation to the ER visit on the . At that time he was a stroke alert had a full workup including an inpatient hospitalization with an MRI that did not show anything acute. Upon arrival to the emergency room I did Greet the patient in the hallway on the EMS stretcher he does complain of right-sided weakness more than his baseline and numbness and tingling of his right side of his arm and leg. He will proceed directly to CT scan. Of note I did review his ER visit on May 30 which is where I saw him, additionally I reviewed his ER visit from the or the next day and then again the . Past Medical History: History of CVA with right-sided residual weakness, hypertension, tobacco abuse, alcohol abuse, diastolic heart failure and recent multiple ER visits Past Surgical History: No recent surgery Social History: Homeless, history of alcohol abuse Family History: Noncontributory ROS REVIEW OF SYSTEMS: A comprehensive 10 point review of systems is otherwise negative aside from elements mentioned in the history of present illness. Exam Constitutional appears nontoxic triage nursing summary reviewed, vital signs reviewed, awake/alert. Eyes normal conjunctivae and sclera, EOMI, PERRLA. HENT normal inspection, atraumatic, moist mucus membranes, no epistaxis, neck supple/ no meningismus, no raccoon eyes. Respiratory clear to auscultation bilaterally, normal breath sounds, no respiratory distress, no wheezing. Cardiovascular rate normal, regular rhythm, no murmur, no edema, distal pulses normal. Gastrointestinal soft, non-tender, no rebound, no guarding, normal bowel sounds, no distension, no pulsatile mass. Genitourinary no CVA tenderness. Musculoskeletal no midline vertebral tenderness, full range of motion, no calf swelling, no tenderness of extremities, no meningismus, good pulses, neurovascularly intact. Skin pink, warm, & dry, no rash, skin atraumatic. Neurologic right upper extremity right lower extremity are weak, 3+ strength of the right upper and right lower extremity, otherwise he has a nonfocal normal neurological exam, awake, alert and oriented x 3, AAOx3, moves all 4 extremities equally, motor intact, sensory intact, CN II-XII intact, normal cerebellar, normal vision, normal speech. Psychiatric normal mood/affect. Heme/Lymph/Immune no lymphadenopathy. Differential Diagnosis: Includes but is not limited to in a particular order acute CVA, acute head bleed, electrolyte disturbance, infection, [place], malingering behavior Medical Decision Making: Plan for this patient complaining worsening right- sided weakness however these are wake up symptoms he is not sure when they started he woke up and noticed it. Will proceed with CT scan head without contrast and further evaluate him for possible stroke. Re-evaluation: Upon arrival: 0644 NIHSS TWO. I did give this patient in a stroke scale of 2 given his right-sided upper and right lower extremity weakness. I do not believe this patient is a tPA candidate as these are wake up symptoms. Unclear exactly when they started. He was last seen normal at 10:00 p.m. or 9 hr ago. Additionally I will consult [facility] for further evaluation. CT scan head without contrast negative for acute bleed or infarct. I did review this patient's discharge summary from the and . Extensive workup for stroke which were negative. 0706AM: Signed out to Dr. Abraham. Follow up labs, and have [facility] consult on the patient. (Micha Arteaga) Constitutional: Initial Vital Signs O2 Sat (%) 2 L 06/08/17 06:49 O2 Delivery Mode Nasal Cannula O2 (L/minute) 3 Allergies/Adverse Reactions: No Known Allergies Allergy (Verified 06/03/17 09:03) Home Medications: Medication Instructions Recorded Cholestyramine (with Sugar) 4 gm PO BID 06/03/17 [Cholestyramine Packet] Acetaminophen [Tylenol 325mg (*)] 650 mg PO Q4HRS PRN tab 06/04/17 Aspirin EC [Aspirin EC 81 mg (*)] 81 mg PO DAILY #30 tab 06/04/17 Labetalol HCl [Trandate 100 mg (*)] 50 mg PO BID PRN #30 tab 06/04/17 Pantoprazole Sodium [Protonix 40mg 40 mg PO BID #60 tab 06/04/17 (*)] traZODone [traZODONE 50MG (*)] 50 mg PO HS 06/08/17 Medical Decision Making ED Course/Re-evaluation: 700: Patient is signed out to me at change of shift by Dr. Arteaga. Dr. Arteaga reports that he has seen the patient previously in the refused medical record with me. Today the patient woke up with his symptoms. He is white sided weakness. This is slightly worse than last time Dr. Arteaga saw him. He was last seen normal at 10:[address] Garcia reported that the noncontrast head CT is negative. I am awaiting [facility] consultation. Dr. Arteaga paged [facility]. EKG shows normal sinus rhythm, normal rate, normal axis, normal intervals. There are no ST or T-wave abnormalities. EKG is normal as interpreted by me. 715: I discussed the case with Dr. Paredes from [facility]. He felt that the patient was not a tPA candidate based on his presentation. He felt this patient should be consulted by in person Neurology rather than over the stroke camera. He recommended we contact our neurology service. 720: I personally went evaluated the patient. Patient is complaining of right- sided weakness. On exam he has decreased effort but noted weakness on his right upper and lower extremities. He does not withdraw to pain. I paged Neurology on-call. I was informed that are neurologist or unable to be consulted before 8:00 a.m.. While making these calls I ordered an MRI. 740: I discussed discussed the case with Dr. Castro. He will accept the patient. He prefers that Neurology see the patient prior to MRI imaging. MRI was canceled. I discussed this with the technical translator. 800: Neurology was paged. 815: I discussed the case with Dr. Mendez. He will evaluate the patient. (Katharina Abraham) Differential Diagnosis: My differential includes but is not limited to ischemic CVA, hemorrhagic CVA, dissection, aneurysm, MS, mass, malignancy, electrolyte abnormality, sugar abnormality, malingering, fall risk (Katharina Abraham) - Data Points Laboratory Results: Laboratory Results 06/09/17 04:49 06/09/17 04:49 06/08/17 20:00 Group A Strep DNA NEGATIVE (NEGATIVE) Microbiology Results: MICROBIOLOGY 06/08/17 16:20 Nasal, Sinus - Swab Respiratory Panel (PCR) - Final Influenza Virus Type B Medications Given: Acetaminophen (Tylenol) 650 mg PO Q4HRS PRN PRN Reason: Pain, Mild/Fever, Can Take PO Stop: 12/05/17 08:42 Last Admin: 06/08/17 19:40 Dose: 650 mg Aspirin Buffered (Aspirin Ec) 81 mg PO DAILY [facility] Stop: 12/06/17 08:59 Last Admin: 06/09/17 15:01 Dose: 81 mg Cholestyramine Resin (Questran) 4 gm PO BID [facility] Stop: 12/05/17 20:59 Last Admin: 06/09/17 20:44 Dose: 4 gm Enoxaparin Sodium (Lovenox) 40 mg SC DAILY [facility] Stop: 12/06/17 10:59 Last Admin: 06/09/17 15:40 Dose: Not Given Sodium Chloride (Ns) 1,000 mls @ 100 mls/hr IV CONT [facility] Stop: 12/05/17 20:59 Last Admin: 06/09/17 04:05 Dose: 1,000 mls Ondansetron HCl (Zofran) 4 mg IVP Q4HRS PRN PRN Reason: Nausea/Vomiting, Can't Take PO Stop: 12/05/17 08:42 Last Admin: 02/01/18 12:42 Dose: 4 mg Oseltamivir Phosphate (Tamiflu) 75 mg PO BIDMEAL [facility] Stop: 06/13/17 08:01 Last Admin: 06/09/17 18:21 Dose: 75 mg Pantoprazole Sodium (Protonix) 40 mg PO BID [facility] Stop: 12/05/17 20:59 Last Admin: 06/09/17 20:44 Dose: 40 mg Trazodone HCl (Trazodone) 50 mg PO HS [facility] Stop: 12/05/17 20:59 Last Admin: 06/09/17 20:44 Dose: 50 mg Vancomycin HCl (Vancocin Oral Liquid) 125 mg PO QID [facility] PRN Reason: Protocol Stop: 07/09/17 09:14 Last Admin: 06/09/17 20:44 Dose: 125 mg Discontinued Medications Aspirin Buffered (Aspirin Ec) 325 mg PO DAILY [facility] Stop: 12/05/17 08:59 Last Admin: 06/08/17 12:42 Dose: 325 mg Sodium Chloride (Ns) 1,000 mls @ 500 mls/hr IV EDNOW ONE PRN Reason: Protocol Stop: 06/08/17 08:48 Last Admin: 06/08/17 07:05 Dose: 1,000 mls Sodium Chloride (Ns) 500 mls @ 1,500 mls/hr IV ONCE ONE Stop: 06/08/17 21:13 Last Admin: 06/08/17 21:18 Dose: 500 mls Sodium Chloride (Ns) 1,000 mls @ 3,000 mls/hr IV ONCE ONE Stop: 06/08/17 21:32 Last Admin: 06/09/17 00:04 Dose: 1,000 mls Piperacillin/Tazobactam/Dextrose (Zosyn 3.375 Gm (Premix)) 50 mls @ 100 mls/hr IV Q6HRS [facility] PRN Reason: Protocol Stop: 07/09/17 00:29 Last Admin: 06/09/17 05:18 Dose: 50 mls Magnesium Sulfate (Magnesium Sulf 2 Gm (Premix)) 50 mls @ 50 mls/hr IV ONCE ONE Stop: 06/09/17 06:46 Last Admin: 06/09/17 06:01 Dose: 50 mls Sodium Chloride (Ns) 2,200 mls @ 4,400 mls/hr 30 ml/kg infuse over 30 min ( 2200 ml) IV ONCE ONE Stop: 06/09/17 10:42 Last Admin: 06/09/17 13:19 Dose: 2,200 mls Lorazepam (Ativan) 1 mg PO ONCE ONE Stop: 06/08/17 13:31 Last Admin: 06/08/17 13:52 Dose: 1 mg Lorazepam (Ativan) 0.5 mg PO ONCE ONE Stop: 06/09/17 00:23 Last Admin: 06/09/17 00:37 Dose: 0.5 mg Lorazepam (Ativan) 0.5 mg PO ONCE ONE Stop: 06/09/17 15:31 Last Admin: 06/09/17 15:33 Dose: 0.5 mg Ondansetron HCl (Zofran) 4 mg IVP EDNOW ONE Stop: 06/08/17 07:22 Last Admin: 06/08/17 08:45 Dose: Not Given Potassium Chloride (Klor-Con) 40 meq PO ONCE ONE Stop: 06/09/17 16:46 Last Admin: 06/09/17 16:55 Dose: 40 meq Departure - Departure Disposition: [facility] Inpatient Acute Clinical Impression: Right sided weakness Condition: Fair
[2017-06-08 06:57] LABS: PLATELET COUNT 297 10^3/uL (150-400)
--- NOTE | 2017-06-08 07:02 | CPEKG ---
Heart Rate: 87 RR Interval: 690 P-R Interval: 160 QRSD Interval: 84 QT Interval: 388 QTC Interval: 467 P [place]: 68 QRS [place]: 45 T Wave [place]: 54 EKG Severity - OTHERWISE NORMAL ECG - EKG Impression: SINUS RHYTHM EKG Impression: LOW VOLTAGE IN FRONTAL LEADS Electronically Signed By: Katharina Abraham 08-Jun-2017 15:10:42
[2017-06-08 07:06] LABS: INR 1.05 (0.83-1.16); PROTIME(PATIENT) 13.9 SEC (12.0-15.0)
[2017-06-08] MEDS ORDERED: ONDANSETRON 4 MG/2 ML VIAL IVP ONE (07:21)
[2017-06-08] MEDS ORDERED: ASPIRIN EC 325 MG TAB PO SCH (09:00)
[2017-06-08] MEDS ORDERED: LORazepam 1 MG TAB PO ONE ×2 (10:34→13:30)
[2017-06-08 12:17] LABS: CREATINE KINASE 39 IU/L (0-224)
[2017-06-08] MEDS: ACETAMINOPHEN 325 MG TAB PO PRN ×2 (12:41→19:40)
[2017-06-08] MEDS: ONDANSETRON 4 MG/2 ML VIAL IVP PRN (12:42)
--- NOTE | 2017-06-08 13:21 | NEUROPROG ---
Assessment: [id number] - Neurology Consult: - CC: Right Sided weakness - HPI: He was brought to the [facility] ED on 06/08/17 from a homeless fpc for report of acute onset right sided weakness. These symptoms were present upon awakening and included right face/arm/leg weakness and altered sensation. Head CT unremarkable. Neurologic exam on 06/08/17 was normal but appeared to show volitional right face/arm/leg weakness and altered sensation. Pt had give-way weakness at times and at other times appeared to have no weakness at all. It was also reported he was admitted in May 2017 for similar symptoms and had a normal brain MRI. At that time it was suspected his weakness was not from an acute neurologic etiology. I recommend a brain/cervical MRI w/ and w/o con. - PMHx: HTN, alcoholism, stroke 2013, HLD, tobacco user, C.diff 2016, R ear hearing loss - SHx: homeless FHx: [place] - ROS: Pt denied acute fever, total vision loss, active severe chest pain, respiratory failure, total body severe rash, total bowel/bladder incontinence, psychosis, active seizures, or active bleeding - O: VS reviewed General: Alert Eyes: Fundoscopic exam not able to visualize optic disks CV: Heart RRR, no murmur, no carotid bruit Lungs: Clear to auscultation bilaterally, no rhonchi or rales Neuro: - Mental: . Oriented x person/place/date . concentration appears normal . speech fluency/comprehension normal . memory appears normal . fund of knowledge appear intact - Cranial Nerves: . II: PERRL, VFFTC . III/IV/: EOMI, no nystagmus, normal smooth pursuits, no Ptosis . V: facial sensation intact to LT . VII: face symmetric to eye closure and smile (sometimes pt appears to have right sided facial weakness which appears volitional, at other times facial strength appears normal) . VIII: hearing intact to conversation . IX/X: uvula raises symmetrically . XI: SCM 5/5 B/L strength . XII: tongue protrudes midline w/nl strength - Motor: . Tone: normal tone in all 4 extremity . Strength: no pronator drift, strength 5/5 throughout (B/L delt, bic, tri, hand safety sealer, hf/he, df/pf) however at times with strength testing the right arm or right leg had give-way weakness which did not appear to be true neurologic weakness. Prior to entering the room I observed the patient and he was sitting up with no apparent right arm, face, or right leg weakness - Reflexes: B/L bic 06/11 - Sensory: all 4 extremity intact to light touch but pt says right face/arm/leg feels different than left side - Coord: [id number] wnl, [place] wnl - Gait: deferred - Labs: 06/08/17- CBC Hct 31.1L, Chem wnl, alcohol negative - Rads: 05/30/17- Brain MRI w/o con: mild cerebellar atrophy, Right posterior upper neck subcutaneous probable sebaceous cyst measuring 3.2 cm, no acute stroke, bleed, mass effect, or hydrocephalus. 05/30/17- Head/Neck CTA: Mild stenosis in bilateral carotid bulbs due to mixed calcified and noncalcified plaque 06/08/17- Head CT w/o con: No new significant intracranial abnormality seen (I personally visualized the images on 06/08/17) - Assessment: 1. Subjective Report of right sided weakness that appears non-neurologic: Neurologic exam on 06/08/17 was normal but appeared to show volitional right face/ arm/leg weakness and altered sensation. Pt had give-way weakness at times and at other times appeared to have no weakness at all. It was also reported he was admitted in May 2017 for similar symptoms and had a normal brain MRI. At that time it was suspected his weakness was not from an acute neurologic etiology. I recommend a brain/cervical MRI w/ and w/o con. If these studies are unremarkable I will conclude his right sided weakness/altered sensation are likely non-neurologic. Psychiatric problems or malingering are in the differential. - Plan: - Brain/cervical MRI w/ and w/o con, if these studies are unremarkable then no further neurologic w/u needed Objective: Vital Signs Temp Pulse Resp BP Pulse Ox 38.8 C H 88 17 123/61 H 99 06/08/17 11:37 06/08/17 11:37 06/08/17 11:37 06/08/17 11:37 06/08/17 11:37 06/07/17 06/08/17 06/09/17 05:59 05:59 05:59 Intake Total 1000 Output Total 250 Balance 750 PT 13.9 SEC (12.0-15.0) 06/08/17 06:40 INR 1.05 (0.83-1.16) 06/08/17 06:40 Allergies/Adverse Reactions: No Known Allergies Allergy (Verified 06/03/17 09:03)
--- NOTE | 2017-06-08 13:33 | PDGENHP ---
History and Physical - Chief Complaint Acute paresis - History of Present Illness Primary care provider: [facility] HPI: 57-year-old male present with acute paresis located in the right upper and right lower extremity, with associated paresthesias, with onset of symptoms on the morning upon awakening. Duration has been persistent thereafter. The weakness is characterized as an inability to grasp objects, lift his right upper extremity, and he reports that is similar to the paresis he experienced 1 week ago, also similar to paresis he experienced several years ago when he believes he had acute CVA. The patient reports that he awoke sleeping on his left side today, but he is uncertain whether he slept on his right side. He denies any neck pain. He reports that he has been taking all of his home medications. He reports that life as a homeless person is particularly challenging given that the patient has fatigue exacerbated with exertion and he believes that this also resulted in falls. He believes that he has had 3 falls over the past couple weeks as a direct result. When asked whether he utilize a walker, his replies "are you joking?" because he feels like he is unable to keep his belongings in a suitcase and utilize a walker at the same time. Overall, given his inability to care for himself in the setting of his fatigue and weakness, the patient believes that he requires a prison facility and he is requesting evaluation for this time. History Information - Allergies/Home Medication List Allergies/Adverse Reactions: No Known Allergies Allergy (Verified 06/03/17 09:03) Home Medications: Cholestyramine (with Sugar) [Cholestyramine Packet] 4 gm PO BID 06/03/17 [Last Taken 06/07/17 21:00] traZODone [traZODONE 50MG (*)] 50 mg PO HS 06/08/17 [Last Taken 06/07/17] I have personally reviewed and updated: family history, medical history, social history, surgical history - Past Medical History CVA (Reported), hypertension, hyperlipidemia Additional medical history: ETOH abuse, reports recent sobriety. H/O C diff with recent negative PCR test - Surgical History Reports: no pertinent surgical hx - Family History Positive for: cancer Additional family history: Mother With myocardial infarction in her 50s - Social History Smoking Status: Heavy smoker Alcohol Use: Sober (Reports recent sobriety) Drug Use: None Additional social history: Staying at homeless care home. Wants to go to a longterm. Review of Systems Review of Systems: ROS: 10pt was reviewed & negative except for what was stated in HPI & below Constitutional: Reports: weakness Neurological: Reports: numbness (Right-sided), tingling (Right-sided), tremors ( Chronic) Physical Exam Physical Exam: Temp Pulse Resp BP Pulse Ox 38.8 C H 88 17 123/61 H 99 06/08/17 11:37 06/08/17 11:37 06/08/17 11:37 06/08/17 11:37 06/08/17 11:37 Constitutional: no apparent distress, not in pain, chronically ill appearing, No uncomfortable Eyes: PERRL, anicteric sclera, EOMI Ears, Nose, Mouth, Throat: moist mucous membranes, hearing normal, ears appear normal, no oral mucosal ulcers Cardiovascular: regular rate and rhythym, no murmur, rub, or gallop, edema ( Trace bilateral lower extremities) Respiratory: no respiratory distress, no rales or rhonchi, clear to auscultation Gastrointestinal: normoactive bowel sounds, soft, non-tender abdomen, no palpable masses, No distension Skin: warm, normal color, no rashes or abrasions, no fluctuance, no induration, No mottled Neurologic: AAOx3, weakness (3/5 director of vocational guidance strength in the right hand, 3 out of motor strength right elbow flexion, 4/5 motor strength right hip flexor, 3/5 motor strength right dorsiflexion, absent reflexes right patella, diminished left patella comma motor strength 5/5 left upper Amanda left lower extremity), CN II-XII Intact, No sensation intact bilaterally (Subjectively numb in the right upper right lower extremities and right face) Psychiatric: not encephalopathic, thought process linear, anxious (And somewhat confrontational), No agitated Lab Data & Imaging Review 06/08/17 06:40 06/08/17 06:40 WBC 6.82 10^3/uL (3.80-9.50) 06/08/17 06:40 RBC 3.12 10^6/uL (4.40-6.38) L 06/08/17 06:40 Hgb 10.1 g/dL (13.7-17.5) L 06/08/17 06:40 Hct 31.1 % (40.0-51.0) L 06/08/17 06:40 MCV 99.7 fL (81.5-99.8) 06/08/17 06:40 MCH 32.4 pg (27.9-34.1) 06/08/17 06:40 MCHC 32.5 g/dL (32.4-36.7) 06/08/17 06:40 RDW 16.3 % (11.5-15.2) H 06/08/17 06:40 Plt Count 297 10^3/uL (150-400) 06/08/17 06:40 MPV 10.6 fL (8.7-11.7) 06/08/17 06:40 Neut % (Auto) 76.2 % (39.3-74.2) H 06/08/17 06:40 Lymph % (Auto) 13.0 % (15.0-45.0) L 06/08/17 06:40 [place] % (Auto) 8.4 % (4.5-13.0) 06/08/17 06:40 Eos % (Auto) 1.0 % (0.6-7.6) 06/08/17 06:40 Baso % (Auto) 1.0 % (0.3-1.7) 06/08/17 06:40 Nucleat RBC Rel Count 0.0 % (0.0-0.2) 06/08/17 06:40 Absolute Neuts (auto) 5.19 10^3/uL (1.70-6.50) 06/08/17 06:40 Absolute Lymphs (auto) 0.89 10^3/uL (1.00-3.00) L 06/08/17 06:40 Absolute Monos (auto) 0.57 10^3/uL (0.30-0.80) 06/08/17 06:40 Absolute Eos (auto) 0.07 10^3/uL (0.03-0.40) 06/08/17 06:40 Absolute Basos (auto) 0.07 10^3/uL (0.02-0.10) 06/08/17 06:40 Absolute Nucleated RBC 0.00 10^3/uL (0-0.01) 06/08/17 06:40 Immature Gran % 0.4 % (0.0-1.1) 06/08/17 06:40 Immature Gran # 0.03 10^3/uL (0.00-0.10) 06/08/17 06:40 PT 13.9 SEC (12.0-15.0) 06/08/17 06:40 INR 1.05 (0.83-1.16) 06/08/17 06:40 Sodium 145 mEq/L (135-145) 06/08/17 06:40 Potassium 4.0 mEq/L (3.5-5.2) 06/08/17 06:40 Chloride 110 mEq/L (97-110) 06/08/17 06:40 Carbon Dioxide 23 mEq/l (22-31) 06/08/17 06:40 Anion Gap 12 mEq/L (8-16) 06/08/17 06:40 BUN 8 mg/dL (7-23) 06/08/17 06:40 Creatinine 0.7 mg/dL (0.7-1.3) 06/08/17 06:40 Estimated GFR > 60 06/08/17 06:40 Glucose 89 mg/dL (70-100) 06/08/17 06:40 Calcium 8.5 mg/dL (8.5-10.4) 06/08/17 06:40 Phosphorus 3.3 mg/dL (2.5-4.5) 06/08/17 06:40 Creatine Kinase 39 IU/L (0-224) 06/08/17 06:40 Troponin I < 0.012 ng/mL (0.000-0.034) 06/08/17 06:40 Ethyl Alcohol < 10 mg/dL (0-10) 06/08/17 06:40 Visualized and Interpreted Chest x-ray results: Yes Chest X-Ray results: no infiltrate Visualized and Interpreted EKG results: Yes EKG Interpretation: Positive for: normal sinsus rhythm Assessment & Plan Assessment: 57-year-old male presents with recurrent right-sided hernando paresis and hernando paresthesia Plan: 1. Hernando paresis and hernando paresthesia. Acute, new problem this provider, further workup indicated. Potential etiologies include TIA, CVA, malingering, somatoform disorder -reviewed outside records including 06/04/[address] Vanessa Nova, she reports the patient was independent in his ADLs at that time, she made a slight adjustment to the patient's labetalol dosage, she stopped his vancomycin, further review of Neurology consultation demonstrates that the impression was that the patient was either experiencing post stroke recurdessen , TIA, or malingering -discussed with Dr. Gerald Mendez, we agreed the patient warrants an MRI to rule out any acute stroke given his persistence of symptoms for several hours -if the patient has no acute stroke after persistence of symptoms for several hours, then this is most likely malingering situation versus somatoform disorder , and supportive care is the only indicated treatment modality, complete with physical and occupational therapy assessments -that being said the patient may have an element of deconditioning and weakness in the setting of chronic alcoholism and he does have some evidence of a chronic tremor and also some cerebellar atrophy on his previous had imaging, this could lead to patient's gait imbalance, physical weakness exacerbated with activity, and the patient could legitimately require prison facility for rehab to work on this deconditioning in a safe, supportive environment sign- I discussed patient's therapy evaluations with her therapist as well as case management, we will attempt to the best of our ability to rapid the level of activity required for this gentleman when he is out on the street, so that we are able to fully evaluate whether the patient is capable of completing this level of activity safely 2. Chronic hypertension. Continue patient's home dosage of labetalol Diet. Bedside swallow, then cardiac diet Prophylaxis. High risk patient, SCDs until CVA ruled out Code. Full Disposition. Anticipated discharge 2/, pending extensive therapy evaluations as outlined above, if the patient does require prison facility for rehab and is unsafe discharge tomorrow, then he will be upgraded to inpatient admission status for further workup, evaluation, medical necessity.
[2017-06-08] MEDS ORDERED: GADOBUTROL 10 ML VIAL IVP ONE (14:42)
[2017-06-08] MEDS ORDERED: LABETALOL HCL 100 MG TAB PO PRN (17:05)
[2017-06-08] MEDS: CHOLESTYRAMINE/SUCROSE 4 GM PKT PO SCH (20:54)
[2017-06-08] MEDS ORDERED: NS 500 ML IV ONE (20:54)
[2017-06-08] MEDS: PANTOPRAZOLE SODIUM 40 MG TAB PO SCH (20:55)
[2017-06-08] MEDS: traZODone 50 MG TAB PO SCH (20:55)
--- NOTE | 2017-06-08 21:19 | HOSPPROG ---
Hospitalist Progress Note Assessment/Plan: I was called to the patients bedside as he has developed tachycardia, BP has decreased, and he has a fever of 39.5 chart reviewed He is diaphoretic Main complaint is throat pain He also has an intermittent cough which is non productive he has been having loose stools but no abd pain no fever on presentation bp has dropped and he now has tachycardia no leukocytosis Influenza B is positive O: 102/57, 116, 18, 39.5, on RA DIAPHORETICS MM DRY OROPHARYNX CLEAR, NO EXUDATES OR ERYTHEMA NO CERVICAL LAD TACHYCARDIA DECREASED LUNG SOUNDS S/NT/ND NO LE EDEMA SKIN WARM AND MOIST NEURO: ALERT LABS/STUDIES REVIEWED #SIRS criteria, likely Sepsis, unclear etiology, possibly due to influenza, but main c/o is throat pain #Fever #Influenza B Plan: -IV fluids -Start Tamiflu -pc and serum lactate, consider abx empirically pending clinical course and w/ u. Strep test already order. -Blood cultures total critical care time including evaluation of patient and coordination with nurse is 40 minutes Objective: Vital Signs Temp Pulse Resp BP Pulse Ox 39.5 C H 116 H 18 102/57 L 93 06/08/17 20:00 06/08/17 20:00 06/08/17 20:00 06/08/17 20:00 06/08/17 20:00 Microbiology 06/08/17 16:20 Respiratory Panel (PCR) - Final Nasal, Sinus - Swab Influenza Virus Type B 06/07/17 06/08/17 06/09/17 05:59 05:59 05:59 Intake Total 1240 Output Total 250 Balance 990 PT 13.9 SEC (12.0-15.0) 06/08/17 06:40 INR 1.05 (0.83-1.16) 06/08/17 06:40 ICD10 Worksheet Patient Problems: Problems Problem Status Onset Right sided weakness Acute Adult failure to thrive Acute Alcohol abuse Acute Alcohol intoxication Acute Alcohol withdrawal Acute Alcoholic hepatitis Acute Clostridium difficile infection Acute ~01/23/17 EKG abnormality Acute GI bleed Acute Generalized weakness Acute Low back pain Acute
[2017-06-08] MEDS: OSELTAMIVIR PHOSPHATE 75 MG CAP PO SCH (22:35)
[2017-06-09] MEDS ORDERED: LORazepam 0.5 MG TAB PO ONE ×3 (00:22→15:30)
[2017-06-09] MEDS: PIPERACILLIN/TAZO 3.375 GM/DEX 50 ML IV SCH ×2 (00:39→05:18)
[2017-06-09] MEDS: NS 1,000 ML IV SCH (04:05)
[2017-06-09 04:57] LABS: PLATELET COUNT 274 10^3/uL (150-400)
[2017-06-09] MEDS ORDERED: MAGNESIUM SULF 2 GM/WATER 50 ML IV ONE (05:47)
--- NOTE | 2017-06-09 09:40 | NEUROPROG ---
Assessment: [id number] - Neurology Consult: - CC: Right Sided weakness - Narrative Summary: He was brought to the [facility] ED on 06/08/17 from a homeless detention for report of acute onset right sided weakness. These symptoms were present upon awakening and included right face/arm/leg weakness and altered sensation. Head CT unremarkable. Neurologic exam on 06/08/17 was normal but appeared to show volitional right face/arm/leg weakness and altered sensation. Pt had give-way weakness at times and at other times appeared to have no weakness at all. It was also reported he was admitted in May 2017 for similar symptoms and had a normal brain MRI. At that time it was suspected his weakness was not from an acute neurologic etiology. I recommend a brain/cervical MRI w/ and w/o con. - HPI: F/U 06/09/17. Brain/cervical MRI showed no significant acute findings. He was found to have the flu and possible sepsis so that may be why he was feeling poorly. No other new complaint. Brain MRI did show a cyst so defer to hospitalist to address. The cervical MRI did show moderate degenerative disease which is likely not causing his right sided weakness. If he has neck pain he should f/u with his PCM in the outpatient setting for evaluation of the cervical degenerative disease. - PMHx: HTN, alcoholism, stroke 2013, HLD, tobacco user, C.diff 2017, R ear hearing loss - SHx: homeless FHx: NC - ROS: Pt denied acute fever, total vision loss, active severe chest pain, respiratory failure, total body severe rash, total bowel/bladder incontinence, psychosis, active seizures, or active bleeding - Labs: 06/08/17- CBC Hct 31.1L, Chem wnl, alcohol negative - Rads: 05/30/17- Brain MRI w/o con: mild cerebellar atrophy, Right posterior upper neck subcutaneous probable sebaceous cyst measuring 3.2 cm, no acute stroke, bleed, mass effect, or hydrocephalus. 05/30/17- Head/Neck CTA: Mild stenosis in bilateral carotid bulbs due to mixed calcified and noncalcified plaque 06/08/17- Head CT w/o con: No new significant intracranial abnormality seen (I personally visualized the images on 06/08/17) 06/08/17- Brain MRI w/ and w/o con: Normal MRI of the brain without and with contrast. No acute infarct, acute hemorrhage, hydrocephalus or mass effect. Neck cyst. 06/08/17- Cervical MRI w/ and w/o con: No evidence of cord edema, myelomalacia, demyelinating plaques, or enhancing lesions. Multi Level moderate degenerative disk disease, worse from C4-C5 through C6-C7, resulting in mild to moderate central canal stenosis, worse at C4-C5, and variable neural foraminal stenosis, moderate to severe on the left at C4-C5. - Assessment: 1. Subjective Report of right sided weakness that appears non-neurologic: Neurologic exam on 06/08/17 was normal but appeared to show volitional right face/ arm/leg weakness and altered sensation. Pt had give-way weakness at times and at other times appeared to have no weakness at all. It was also reported he was admitted in May 2017 for similar symptoms and had a normal brain MRI. At that time it was suspected his weakness was not from an acute neurologic etiology. Brain/cervical MRI on 06/08/17 showed no acute changes to explain his weakness complaint. Psychiatric problems or malingering are in the differential. - 2. Moderate cervical degenerative disease seen on cervical MRI on 06/08/17: I do not feel like this is the cause of his right sided weakness. If he has neck pain I recommend routine f/u with his outpatient PCM to address with physical therapy as the first step. - 3. Cyst seen on brain MRI: Likely sebaceous cyst, defer management to hospitalist but likely benign. - 4. Flu: defer to hospitalist - Plan: - No further inpatient w/u needed, neurology will sign off, please call for any change in neurologic status or any questions. Objective: Vital Signs Temp Pulse Resp BP Pulse Ox 37.7 C 112 H 24 H 82/48 L 91 L 06/09/17 08:00 06/09/17 08:00 06/09/17 08:00 06/09/17 09:31 06/09/17 09:31 Microbiology 06/08/17 16:20 Respiratory Panel (PCR) - Final Nasal, Sinus - Swab Influenza Virus Type B Laboratory Results 06/09/17 04:49 06/09/17 04:49 06/08/17 06/09/17 06/10/17 05:59 05:59 05:59 Intake Total 6740 Output Total 350 Balance 6390 PT 13.9 SEC (12.0-15.0) 06/08/17 06:40 INR 1.05 (0.83-1.16) 06/08/17 06:40 Allergies/Adverse Reactions: No Known Allergies Allergy (Verified 06/03/17 09:03)
[2017-06-09] MEDS ORDERED: NS 2,200 ML IV ONE (10:13)
[2017-06-09] MEDS ORDERED: ALTEPLASE 2 MG VIAL IVP PRN (10:16)
--- NOTE | 2017-06-09 10:24 | HOSPPROG ---
Hospitalist Progress Note Assessment/Plan: Assessment: 57-year-old male presents with recurrent right-sided hernando paresis and hernando paresthesia, c/b septic shock in setting of CDiff and influenza B viral syndrome Plan: # Septic Shock. Evidenced by hypotension + tachypnea (qSOFA 2), with SOFA 6 and the anticipation he will need levophed, meeting all ICDS-3 criteria w/ autonomic dysregulation in setting of infxn (flu and cdiff) - original lactic 4, repeating now - SBP 88 despite 6L IVF o/n, ongoing volume losses from CDiff, will give additional 2.2L as part of the protocol and add levophed - get PICC line and CVP/ScVo2 monitoring - d/w ICU and floor charges, transfer to ICU now - get CXR to ensure that no PNA has developed in setting of pharyngitis, flu - received Zosyn o/n, with no known source of bacterial infxn (PCT likely elevated from CDiff), will stop Zosyn now to avoid worsening the Cdiff - repeat CBC/CMP now - BCX pending - 50 minutes of critical care time spent specifically addressing this issue above, at bedside w/ patient, patient remains critically ill w/ high risk or mortality # Recurrent CDiff colitis. Suspect POA, patient had c/o diarrhea on presentation and we checked CDiff PCR on 06/08, positive resulted this AM w/ increasing volume and frequency of stool - patient had been taken off of ppx Vanco during recent hospitalization approx 1 week ago, has hx of CDiff - patient's reports of diarrhea in the past have been challenging b/c in the past he has frequently reported diarrhea despite NOT having diarrhea (during hospitalizations), but this diarrhea has definitely been escalating since 06/08 - start Vanco 125 q6 - monitor strict I/O - get abd x-ray to ensure no toxic enlargement/megacolon - ID consult appreciated # Influenza B viral syndrome. POA, RVP checked 06/08 when he developed fever and pharyngitis - Tamiflu D2/5 # Hernando paresis and hernando paresthesia. Acute, 2/2 poor baseline strength 2/2 years of alcoholism w/ cerebellar atrophy on MRI c/b an element of malingering vs. somatoform disorder and now acute infxn which likely substantially impairs his physical abilities - r/o for CVA w/ MRI, r/o for cervical spinal stenosis w/ cerv MRI - d/w Dr. Mendez, we both agree that the acute episodes of R hemiparesis/ hemiparesthesia are non-neurological in origin and, when he presents for these in future, a non-contrast HCT to r/o ICH is reasonable given his reported hx of falls, but any further neuro work-up or OBS should be considered in the context of likely malingering or somatoform - patient will likely require SNF for ongoing PT/OT given anticipated deconditioning from septic shock # Chronic hypertension. Stopping labetolol # Alcoholism. Sober, has a resting tremor which is likely result of his cerebellar damage Diet. Bedside swallow, then cardiac diet Prophylaxis. High risk patient, lovenox 40 Code. Full Disposition. Anticipated discharge uncertain, upgraded to inpatient admission status re: anticipated LOS > 48hrs for reasonable medical necessity including septic shock, CDiff Subjective: diarrhea, feels weak, fatigued Objective: Vital Signs Temp Pulse Resp BP Pulse Ox 37.7 C 112 H 24 H 82/48 L 91 L 06/09/17 08:00 06/09/17 08:00 06/09/17 08:00 06/09/17 09:31 06/09/17 09:31 Microbiology 06/08/17 16:20 Respiratory Panel (PCR) - Final Nasal, Sinus - Swab Influenza Virus Type B Laboratory Results 06/09/17 04:49 06/09/17 04:49 06/08/17 06/09/17 06/10/17 05:59 05:59 05:59 Intake Total 6740 Output Total 350 Balance 6390 PT 13.9 SEC (12.0-15.0) 06/08/17 06:40 INR 1.05 (0.83-1.16) 06/08/17 06:40 - Physical Exam Constitutional: chronically ill appearing, obese, uncomfortable Cardiovascular: tachycardia, edema (trace bilat LE), No systolic murmur, No irregularly irregular Respiratory: reduced air movement (bilat bases), inspiratory crackles (faint in bases), respiratory distress (visibly tachypneic), No expiratory wheeze, No bronchial breath sounds Gastrointestinal: distension (moderately), No normoactive bowel sounds ( hyperactive), No tenderness Neurologic: AAOx3, sensation intact bilaterally, No weakness (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
[2017-06-09] MEDS ORDERED: NOREPINEPHRINE/NS 500 ML IV SCH (10:30)
[2017-06-09] MEDS ORDERED: PROTOCOL POTASSIUM 1 DOSE MISC PRN (11:25)
[2017-06-09] MEDS ORDERED: PROTOCOL MAGNESIUM 1 DOSE IV PRN (11:25)
--- NOTE | 2017-06-09 11:41 | ASMTCMCOM ---
CM Note CM Note Notes: Pt admitted for weakness, is high utilizer of [facility] w most recent admission being 06/03/17. Pt wants SNF placement, last admission did not qualify he was d/c 06/04/17 to the assisted because he was medically stable and OT/PT cleared him. ULTC 100 was done 06/03/17 and by the time the [facility] worker was assigned Monday pt had d/c. Today pt transfer to ICU due to septic shock. Pt may now qualify for SNF, OT/PT/PRODUCT SPECIALIST evals pending for this admission. The ULTC 100 from 06/03/17 was sent again to [facility] and a vm was left for [employer] explaining the situation. [employer] was alerted for the LT medicaid luis f. Of note: Last d/c note indicates pt had a meeting for transitional housing 06/05/17, what is the status? CM to follow. D/c plan of care: If therapies rec SNF [facility] would need to evaluate for Medicaid 30 day SNF placement. If therapies clear pt he likely will d/c to the assisted. Date Signed: 06/09/2017 11:40 AM Electronically Signed By:MUNDO Boothe
--- NOTE | 2017-06-09 11:58 | PDMN ---
Medical Necessity Medical necessity: change to IP; los>2mn for septic shock w/hypotension, tachypnea, SOFA 6 , influenza B, recurrent c diff, acute hemiparesis & hemiparesthesia; requires tx to ICU, neuro consult, r/o CVA and cervical spinal stenosis, and levophed; comorbid homelessness, htn, hx CVA, etoh abuse; per order and progress note 06/09/17
[2017-06-09] MEDS: OSELTAMIVIR PHOSPHATE 75 MG CAP PO SCH ×2 (15:01→18:21)
[2017-06-09] MEDS: CHOLESTYRAMINE/SUCROSE 4 GM PKT PO SCH ×2 (15:01→20:44)
[2017-06-09] MEDS: ASPIRIN EC 81 MG TAB PO SCH (15:01)
[2017-06-09] MEDS: PANTOPRAZOLE SODIUM 40 MG TAB PO SCH ×2 (15:01→20:44)
[2017-06-09] MEDS: ENOXAPARIN 40 MG/0.4 ML SYR SC SCH ×2 (15:02→15:40)
[2017-06-09] MEDS: VANCOMYCIN 125 MG/2.5 ML UDL PO SCH ×4 (15:02→20:44)
[2017-06-09 16:29] LABS: PLATELET COUNT 287 10^3/uL (150-400)
[2017-06-09] MEDS ORDERED: POTASSIUM CL 20 MEQ TAB PO ONE (16:45)
[2017-06-09] MEDS ORDERED: POTASSIUM Cl (KCl) 50 ML IV SCH (16:45)
--- NOTE | 2017-06-09 18:02 | GCON ---
[f rep st] CONSULTATION PULMONARY/CRITICAL CARE DATE OF CONSULTATION: 06/09/2017 REFERRING PHYSICIAN: Morgan Brewer MD REASON FOR REFERRAL: Evaluation and management of sepsis with influenza and C difficile. HISTORY: The patient is a 57-year-old male who was admitted to the hospital yesterday with acute paresis in the right side of his body. He has had similar symptoms recently and was just discharged from the hospital a few days earlier. It was felt that these symptoms were likely non-neurologic, but further evaluation was warranted. Shortly after hospitalization, the patient developed tachycardia, hypotension, and a fever. He had swab test that was positive for influenza. He was started on Tamiflu, and transferred to the intensive care unit. He also had some diarrhea and was checked for C difficile, which was positive. He is currently complaining of abdominal/gas planes. He denies shortness of breath/cough, and is not having weakness on the right side. He was treated with IV fluids and also Levophed as needed, and a PICC line was placed. PAST MEDICAL HISTORY: Hypertension, hyperlipidemia, alcohol abuse. MEDICATIONS: At the time of admission include cholestyramine, labetalol, Protonix, Tylenol, aspirin, and trazodone. ALLERGIES: None. SOCIAL HISTORY: The patient is a heavy smoker. He reports prior alcohol use, but current sobriety. He is staying at a homeless assisted. FAMILY HISTORY: Positive for cancer and a mother with myocardial infarction. REVIEW OF SYSTEMS: A 10-point review of systems adds nothing to the History of Present Illness. PHYSICAL EXAMINATION: GENERAL: The patient is awake, alert, and in mild distress, which he relates to abdominal bloating/diarrhea. VITAL SIGNS: Blood pressure is 115/59, with a heart rate of 92. His temperature was 38.4 earlier. The oxygen saturations are 91% on 4 L. HEENT: Normocephalic and atraumatic. No icterus. NECK: No JVD. Trachea is midline. CHEST: Clear to auscultation. CARDIAC: Regular rate and rhythm without murmur. ABDOMEN: Soft , nontender. Bowel sounds are present. EXTREMITIES: No clubbing, cyanosis, or edema. NEURO: The patient is awake and alert. He is able to move all 4 extremities with just mild weakness on the right side. LABORATORY: White blood count 14.0, up from 6.8 at admission. Hemoglobin is 8.2, down from 10.1. Platelet count is 287. A chemistry group shows a potassium of 3.2, with a creatinine of 0.7. Magnesium is 0.9. Procalcitonin is 2.3. Lactate is 1.1, down from 4.1 last night. C difficile toxin assay is positive. Respiratory panel is positive for influenza B. Blood cultures are negative/pending. IMAGING: A chest x-ray shows mild interstitial pattern. Images reviewed by me. An abdominal x-ray is unremarkable. An MRI of the brain is negative for CVA. ASSESSMENT: 1. Sepsis. The patient has an elevated lactate and hypertension. He has received multiple liters of fluids and also was on some Levophed. He received Zosyn and is receiving vancomycin. Causes for sepsis could include Clostridium difficile and also pneumonia. 2. Influenza. This may contribute to his symptoms, but he does not seem to have significant pneumonia based on chest x-ray, although the mild interstitial changes could be either due to fluid or influenza. He has modest oxygen needs currently. 3. Clostridium difficile. The patient has been started on vancomycin for this. It could be contributing to fluid losses and dehydration. 4. Right-sided weakness. This appears to be intermittent. It does not appear to be neurologic in origin. RECOMMENDATIONS: Continue current therapy with vancomycin and Tamiflu, as well as fluids. Pressors will be weaned. No further evaluation for the patient's neurologic symptoms is planned. A chest x-ray will be repeated if he develops increased oxygen needs. /[id number]/MODL MTDD
[2017-06-09] MEDS: traZODone 50 MG TAB PO SCH (20:44)
[2017-06-09] MEDS ORDERED: LORazepam 0.5 MG TAB PO PRN (21:24)
[2017-06-10] MEDS: NS 1,000 ML IV SCH (01:14)
[2017-06-10] MEDS: ACETAMINOPHEN 325 MG TAB PO PRN ×4 (03:23→20:26)
[2017-06-10] MEDS: VANCOMYCIN 125 MG/2.5 ML UDL PO SCH ×4 (06:22→20:25)
[2017-06-10 06:38] LABS: PLATELET COUNT 328 10^3/uL (150-400)
[2017-06-10] MEDS ORDERED: POTASSIUM Cl (KCl) 50 ML IV SCH (07:00)
[2017-06-10] MEDS ORDERED: POTASSIUM CL 20 MEQ TAB PO ONE (07:15)
[2017-06-10] MEDS: CHOLESTYRAMINE/SUCROSE 4 GM PKT PO SCH ×2 (08:20→20:26)
[2017-06-10] MEDS: ENOXAPARIN 40 MG/0.4 ML SYR SC SCH (08:20)
[2017-06-10] MEDS: PANTOPRAZOLE SODIUM 40 MG TAB PO SCH ×2 (08:21→20:26)
[2017-06-10] MEDS: ASPIRIN EC 81 MG TAB PO SCH (08:21)
[2017-06-10] MEDS: OSELTAMIVIR PHOSPHATE 75 MG CAP PO SCH ×2 (08:21→17:32)
[2017-06-10] MEDS ORDERED: MAGNESIUM SULF 1 GM/DEXTROSE 100 ML IV ONE (09:40)
--- NOTE | 2017-06-10 11:54 | PDINTPN ---
Recording Studio Setup Worker Progress Note Assessment/Plan: Assessment: C.Diff Colitis: Still with fairly frequent BMs, but seems to be slowing down a bit this AM. On Vancomycin. Influenza: On Tamiflu. No significant signs of pneumonia, but interstitial edema could be due to flu or fluid resuscitation Sepsis: Likely due to C. Diff. Improved with fluids, antibiotics. Off pressors. Fluid balance + 10 liters. Right sided weakness: None on exam today. Likely somatoform/malingering. Plan: WIll give a dose of Lasix. Continue Vanco/Tamiflu. Transfer to /. 06/10/17 11:47 06/10/17 11:54 Subjective: Still feels poorly. Had several BMs overnight. Dyspneic with any activity. Objective: Vital Signs Temp Pulse Resp BP Pulse Ox 36.2 C 99 21 H 135/76 H 97 06/10/17 08:00 06/10/17 10:00 06/10/17 10:00 06/10/17 10:00 06/10/17 10:00 Laboratory Results 06/10/17 06:05 06/10/17 06:05 06/09/17 06/10/17 06/11/17 05:59 05:59 05:59 Intake Total 4873 Output Total 1050 Balance 3823 PT 13.9 SEC (12.0-15.0) 06/08/17 06:40 INR 1.05 (0.83-1.16) 06/08/17 06:40 Physical Exam - Physical Exam General Appearance: alert, no apparent distress EENT: normal ENT inspection, other (facial edema) Neck: normal inspection Respiratory: lungs clear, No normal breath sounds Cardiac/Chest: regular rate, rhythm, No edema Abdomen: normal bowel sounds, non-tender Skin: normal color, warm/dry Extremities: normal inspection Neuro/Psych: alert, normal mood/affect, oriented x 3 ICD10 Worksheet Patient Problems: Problems Problem Status Onset Right sided weakness Acute Adult failure to thrive Acute Alcohol abuse Acute Alcohol intoxication Acute Alcohol withdrawal Acute Alcoholic hepatitis Acute Clostridium difficile infection Acute ~01/23/17 EKG abnormality Acute GI bleed Acute Generalized weakness Acute Low back pain Acute
[2017-06-10] MEDS ORDERED: FUROSEMIDE 20 MG/2 ML VIAL IVP ONE (11:59)
--- NOTE | 2017-06-10 15:27 | HOSPPROG ---
Hospitalist Progress Note Assessment/Plan: #Sepsis, likely from C-Diff vs Influenza #Influenza B, on Tamiflu #C-Diff Colitis, on Vancomycin PO #Hypokalemia, replace per protocol #Hyponatremia, replace per protocol #Acute Resp failure, likely multifactorial #Right sided weakness, none today Plan: -Was monitored off IVF and did well. Ok to stop IVF. Encourage PO hydration -Transfer to med floor -Cont Tamiflu -Cont Vancomycin -s/p Lasix today -will start Prednisone 40mg daily, report long hx of tobacco use, cont be contributing to resp status -PT -Lovenox case d/w with team during team rounds Subjective: no longer hypotensive. BP is better. Still with SOB, some cough. Afebrile Objective: Vital Signs Temp Pulse Resp BP Pulse Ox 36.2 C 103 H 20 135/90 H 96 06/10/17 08:00 06/10/17 11:00 06/10/17 11:00 06/10/17 11:00 06/10/17 11:00 Laboratory Results 06/10/17 06:05 06/10/17 12:30 06/09/17 06/10/17 06/11/17 05:59 05:59 05:59 Intake Total 4873 Output Total 1050 600 Balance 3823 -600 PT 13.9 SEC (12.0-15.0) 06/08/17 06:40 INR 1.05 (0.83-1.16) 06/08/17 06:40 ICD10 Worksheet Patient Problems: Problems Problem Status Onset Right sided weakness Acute Adult failure to thrive Acute Alcohol abuse Acute Alcohol intoxication Acute Alcohol withdrawal Acute Alcoholic hepatitis Acute Clostridium difficile infection Acute ~01/23/17 EKG abnormality Acute GI bleed Acute Generalized weakness Acute Low back pain Acute
[2017-06-10] MEDS: predniSONE 20 MG TAB PO SCH (17:32)
[2017-06-10] MEDS ORDERED: LORazepam 1 MG TAB PO ONE (17:45)
[2017-06-10] MEDS: ONDANSETRON DISINTEGRATING 4 MG TAB PO PRN (17:53)
[2017-06-10] MEDS: traZODone 50 MG TAB PO SCH (20:26)
--- NOTE | 2017-06-10 22:25 | GCON ---
[f rep st] CONSULTATION DATE OF CONSULTATION: 06/10/2017 REFERRING PHYSICIAN: Morgan Brewer MD REASON FOR CONSULTATION: Influenza and simultaneous C difficile. HISTORY OF PRESENT ILLNESS: A 57-year-old homeless male, who recently has had 4 ER visits and 3 admissions since 05/30/2017. On 05/31, he was admitted for possible TIA versus stroke, post stroke recrudescence or complicated migraine, who re-presents to the emergency room on June 08, with recurrent complaints of right-sided weakness. The patient had a MARKETING STRATEGIST workup which was negative and, subsequently, patient was noted to be febrile, tachycardic, with a leukocytosis. Evaluation included a respiratory panel, which was positive for influenza B, and patient also was complaining of diarrhea which was C difficile positive. Notably, patient had multiple tests earlier this month that were negative. The patient was empirically started on Tamiflu 75 mg twice daily and vancomycin 125 q.i.d. the 2nd. Today, patient reports minimal improvement, although he does state that his diarrhea has slowed down a bit, but he still has generalized body pain, back pain, cough and shortness of breath. PAST MEDICAL HISTORY: Alcoholism, hypertension, stroke in 2013, tobacco use, C difficile by report in the past, but no documentation in our computer. SOCIAL HISTORY: He is homeless. Uses alcohol. Uses tobacco. FAMILY HISTORY: Reviewed and noncontributory. ALLERGIES: NKDA. MEDICATIONS: Tamiflu 75 mg twice daily, vancomycin 125 mg q.i.d., trazodone, potassium, Protonix, cholestyramine, aspirin, Lovenox, and Tylenol. REVIEW OF SYSTEMS: A complete 10-point review of systems was performed and is negative except as mentioned in the HPI. The patient perseverates on the fact that he "belongs in a jail." PHYSICAL EXAMINATION: VITAL SIGNS: Blood pressure 135/76, heart rate 99, respiratory rate 21, saturation 97% on 4 L. Temperature yesterday was 38.4, day before 39.5. So far today, afebrile. Heart rate 103. GENERAL: This is a nontoxic-appearing male, with bilateral eyelid swelling/puffiness. Conjunctivae are without lesions. NECK: Supple. CARDIOVASCULAR: Tachycardic , regular rate. CHEST: Patient had some bibasilar crackles. ABDOMEN: Soft, nontender. Bowel sounds are present. EXTREMITIES: Mild edema. Multiple tattoos, otherwise no lesions. NEUROLOGIC: He had fluent speech. He was conversive. He is alert and oriented x4. LABORATORY DATA: Urinalysis was negative. Chest x-ray showed diffuse interstitial infiltrates. Blood cultures from 06/08, 2 sets are no growth to date. Potassium is 3.0, creatinine 0.6. White count 10.3, hematocrit 24, platelets of 328, 81% neutrophils. White count is trending down from a prior white count of 14. ASSESSMENT AND PLAN: A 57-year-old male with alcoholism and possible prior stroke, who presents to the emergency room with neurologic symptoms, subsequently found to have sepsis due to influenza B, as well as Clostridium difficile. The patient was started by primary team on vancomycin and Tamiflu, and his hemodynamic parameters, as well as white blood cell count are significantly improved. 1. Would complete a 14-day course of vancomycin for Clostridium difficile. 2. Would complete a 5-day course of influenza despite initiating therapy greater than 48 hours after symptom onset. 3. HIV and hepatitis serologies were added on to labs Thank you for this consultation. We will continue to follow on a daily basis. /[id number]/MODL MTDD
[2017-06-11] MEDS: ONDANSETRON 4 MG/2 ML VIAL IVP PRN ×2 (04:46→10:45)
[2017-06-11 04:56] LABS: PLATELET COUNT 362 10^3/uL (150-400)
[2017-06-11] MEDS: VANCOMYCIN 125 MG/2.5 ML UDL PO SCH ×4 (05:50→20:45)
[2017-06-11] MEDS ORDERED: MAGNESIUM SULF 1 GM/DEXTROSE 100 ML IV ONE (07:49)
[2017-06-11] MEDS: ASPIRIN EC 81 MG TAB PO SCH (10:44)
[2017-06-11] MEDS: PANTOPRAZOLE SODIUM 40 MG TAB PO SCH ×2 (10:44→20:44)
[2017-06-11] MEDS: predniSONE 20 MG TAB PO SCH (10:44)
[2017-06-11] MEDS: CHOLESTYRAMINE/SUCROSE 4 GM PKT PO SCH ×2 (10:44→20:44)
[2017-06-11] MEDS: ENOXAPARIN 40 MG/0.4 ML SYR SC SCH (10:44)
[2017-06-11] MEDS ORDERED: FUROSEMIDE 20 MG TAB PO ONE (11:11)
--- NOTE | 2017-06-11 11:15 | HOSPPROG ---
Hospitalist Progress Note Assessment/Plan: #Sepsis, likely from C-Diff vs Influenza #Influenza B, on Tamiflu #C-Diff Colitis, on Vancomycin PO #Hypokalemia, replace per protocol #Hyponatremia, replace per protocol #Acute Resp failure, likely multifactorial #Right sided weakness, none today #Volume overload, Iatrogenic, additional Lasix today #Bronchitis and long hx of tobacco abuse, cont with steroids #Generalized Weakness, he reports he is too weak to be safe w/o rehab Plan: -Additional one time Lasix today -Cont steroids, Tamiflu, Vancomycin -PT, await formal recommendation regarding rehab. -will likely need placement -Lovenox Subjective: Feels better. Intermittently on O2. Still with GAUTAM. Lots of diuresis yesterday. Can take deeper breaths. Objective: Vital Signs Temp Pulse Resp BP Pulse Ox 36.9 C 88 18 143/86 H 94 06/11/17 08:00 06/11/17 08:00 06/11/17 08:00 06/11/17 08:00 06/11/17 08:00 Laboratory Results 06/11/17 04:42 06/11/17 04:42 06/10/17 06/11/17 06/12/17 05:59 05:59 05:59 Intake Total 4873 2600 Output Total 1050 2100 Balance 3823 500 PT 13.9 SEC (12.0-15.0) 06/08/17 06:40 INR 1.05 (0.83-1.16) 06/08/17 06:40 - Physical Exam Constitutional: no apparent distress Eyes: PERRL, EOMI Ears, Nose, Mouth, Throat: moist mucous membranes, hearing normal Cardiovascular: regular rate and rhythym, No edema Respiratory: no respiratory distress, reduced air movement, expiratory wheeze Gastrointestinal: normoactive bowel sounds, soft, non-tender abdomen Genitourinary: no bladder fullness Skin: warm Musculoskeletal: generalized weakness Neurologic: AAOx3 Psychiatric: interacting appropriately, not anxious, not encephalopathic Lymph, Heme, Immunologic: No petechiae ICD10 Worksheet Patient Problems: Problems Problem Status Onset Right sided weakness Acute Adult failure to thrive Acute Alcohol abuse Acute Alcohol intoxication Acute Alcohol withdrawal Acute Alcoholic hepatitis Acute Clostridium difficile infection Acute ~01/23/17 EKG abnormality Acute GI bleed Acute Generalized weakness Acute Low back pain Acute
[2017-06-11] MEDS: OSELTAMIVIR PHOSPHATE 75 MG CAP PO SCH ×2 (11:23→17:06)
[2017-06-11] MEDS: LORazepam 1 MG TAB PO PRN ×3 (11:24→22:11)
[2017-06-11] MEDS ORDERED: PROTOCOL POTASSIUM 1 DOSE MISC PRN (13:24)
--- NOTE | 2017-06-11 14:47 | PCMIDPN ---
Assessment/Plan: #Influenza B: complete Tamiflu x total 5 days. Now on RA, decreased coughing #Cdiff: vancomycin x 14 days. No documentation of prior episode, patient reports 1 prior episode. Based on 2nd episode (possible) recommend re-treatment with vancomycin 125mg PO QID x 14 days Call ID for additional questions Subjective: patient admits to feeling a bit better still bothered by frequency of diarrhea Objective: Vital Signs Temp Pulse Resp BP Pulse Ox 36.9 C 88 18 143/86 H 94 06/11/17 08:00 06/11/17 08:00 06/11/17 08:00 06/11/17 08:00 06/11/17 08:00 Laboratory Results 06/11/17 04:42 06/11/17 04:42 06/10/17 06/11/17 06/12/17 05:59 05:59 05:59 Intake Total 4873 2600 98 Output Total 1050 2100 350 Balance 3823 500 -252 - Physical Exam General Appearance: alert, no apparent distress, obese Respiratory: No accessory muscle use, No crackles, No wheezing Cardiac/Chest: regular rate, rhythm Extremities: No pedal edema Abdomen: normal bowel sounds, non-tender, soft Skin: No rash Neuro/Psych: alert, normal mood/affect, oriented x 3 - Time Spent With Patient Time Spent with Patient: greater than 25 minutes Time Spent with Patient: Greater than 25 minutes spent on this patients care, greater than 50% of time spent counseling, educating, and coordinating care regarding the above mentioned plan. ICD10 Worksheet Patient Problems: Problems Problem Status Onset Right sided weakness Acute Adult failure to thrive Acute Alcohol abuse Acute Alcohol intoxication Acute Alcohol withdrawal Acute Alcoholic hepatitis Acute Clostridium difficile infection Acute ~01/23/17 EKG abnormality Acute GI bleed Acute Generalized weakness Acute Low back pain Acute
[2017-06-11] MEDS ORDERED: POTASSIUM CL 10 MEQ TAB PO ONE (19:31)
[2017-06-11] MEDS: traZODone 50 MG TAB PO SCH (20:45)
[2017-06-11] MEDS: ONDANSETRON DISINTEGRATING 4 MG TAB PO PRN (20:45)
[2017-06-12 03:52] LABS: HEPATITIS B SURFACE ANTIGEN NEGATIVE (NEGATIVE)
[2017-06-12 04:09] LABS: HEPATITIS C ANTIBODY TOTAL NEGATIVE (NEGATIVE); HIV TYPE 1 AND 2 NEGATIVE (NEGATIVE)
[2017-06-12] MEDS: VANCOMYCIN 125 MG/2.5 ML UDL PO SCH ×4 (06:08→21:31)
[2017-06-12] MEDS: LORazepam 1 MG TAB PO PRN ×3 (06:12→21:49)
[2017-06-12] MEDS ORDERED: POTASSIUM CL 10 MEQ TAB PO ONE (07:31)
[2017-06-12] MEDS ORDERED: MAGNESIUM SULF 2 GM/WATER 50 ML IV ONE (07:33)
[2017-06-12] MEDS: ACETAMINOPHEN 325 MG TAB PO PRN (07:41)
[2017-06-12] MEDS: ONDANSETRON 4 MG/2 ML VIAL IVP PRN ×2 (08:18→13:27)
[2017-06-12] MEDS: CHOLESTYRAMINE/SUCROSE 4 GM PKT PO SCH ×2 (09:50→21:32)
[2017-06-12] MEDS: ASPIRIN EC 81 MG TAB PO SCH (09:51)
[2017-06-12] MEDS: predniSONE 20 MG TAB PO SCH (09:51)
[2017-06-12] MEDS: ENOXAPARIN 40 MG/0.4 ML SYR SC SCH (09:51)
[2017-06-12] MEDS: PANTOPRAZOLE SODIUM 40 MG TAB PO SCH ×2 (09:51→21:32)
[2017-06-12] MEDS: OSELTAMIVIR PHOSPHATE 75 MG CAP PO SCH ×2 (09:52→17:42)
--- NOTE | 2017-06-12 10:05 | HOSPPROG ---
Hospitalist Progress Note Assessment/Plan: #Sepsis: resolved. Flu vs C diff #Influenza B: Tamiflu #C diff colitis: PO vancomycin #Hypokalemia: resolved #Hypomagnesium: on protocol #Right-sided weakness: none today. Negative MRI #Deconditioning: PT. Likely needs rehab #Leukocytosis: resolved #Deconditioning: awaiting SNF placement #Diet: regular #DVT ppx: Lovenox #Disp: cont inpatient admission for Influenza, C diff, PT/OT. DC once accepted by SNF Subjective: "feel terrible". Stools more formed Objective: Vital Signs Temp Pulse Resp BP Pulse Ox 36.6 C 115 H 30 H 166/104 H 89 L 06/12/17 07:48 06/12/17 07:48 06/12/17 07:48 06/12/17 07:48 06/12/17 07:48 Laboratory Results 06/11/17 04:42 06/12/17 06:00 06/11/17 06/12/17 06/13/17 05:59 05:59 05:59 Intake Total 2600 1288 Output Total 2100 1450 Balance 500 -162 PT 13.9 SEC (12.0-15.0) 06/08/17 06:40 INR 1.05 (0.83-1.16) 06/08/17 06:40 - Physical Exam Constitutional: other (tired, ill-appearing) Eyes: PERRL Ears, Nose, Mouth, Throat: dry mucous membranes Cardiovascular: regular rate and rhythym, no murmur, rub, or gallop Respiratory: no respiratory distress, no rales or rhonchi Gastrointestinal: normoactive bowel sounds, soft, non-tender abdomen, no palpable masses, No tenderness Genitourinary: no bladder fullness Skin: warm Musculoskeletal: full muscle strength Neurologic: AAOx3, CN II-XII Intact Psychiatric: interacting appropriately, not encephalopathic, flat affect ICD10 Worksheet Patient Problems: Problems Problem Status Onset Right sided weakness Acute Adult failure to thrive Acute Alcohol abuse Acute Alcohol intoxication Acute Alcohol withdrawal Acute Alcoholic hepatitis Acute Clostridium difficile infection Acute ~01/23/17 EKG abnormality Acute GI bleed Acute Generalized weakness Acute Low back pain Acute
--- NOTE | 2017-06-12 10:35 | ASMTCMCOM ---
CM Note CM Note Notes: 06/12/2017 Case Management Note Met w/pt to discuss PT recommendations for SNF rehab. Pt in agreement for SNF and agrees to 30 day stay. Case Management referred to multiple facilities near [place]. Pt prefers [facility]. Pt refused referral to [facility]. Called [facility] to confirm ULTC 100 process has started. Avril Jefferson is assigned [facility] case planner [phone]. She will have until end of work day tomorrow to assess pt. Pt will likely have a Level 1 PASSR. Earliest approval will likely be per [facility]. Case Management d/c poc: to SNF pending ACMI/ULTC 100 process and acceptance at SNF rehab. Case Management to follow. Date Signed: 06/12/2017 10:34 AM Electronically Signed By:Norma Flannery RN
[2017-06-12] MEDS: ONDANSETRON DISINTEGRATING 4 MG TAB PO PRN (21:50)
[2017-06-13] MEDS: LORazepam 1 MG TAB PO PRN ×3 (01:25→23:06)
[2017-06-13] MEDS ORDERED: CEPACOL LOZENGE PO PRN (02:27)
[2017-06-13] MEDS: GUAIFENESIN/DM 10 ML UDCUP PO PRN ×3 (02:59→22:41)
[2017-06-13] MEDS: VANCOMYCIN 125 MG/2.5 ML UDL PO SCH ×4 (05:23→22:42)
[2017-06-13] MEDS ORDERED: POTASSIUM CL 10 MEQ TAB PO ONE ×2 (07:18→19:53)
[2017-06-13] MEDS ORDERED: MAGNESIUM SULF 2 GM/WATER 50 ML IV ONE (07:19)
[2017-06-13] MEDS: ASPIRIN EC 81 MG TAB PO SCH (07:22)
[2017-06-13] MEDS: predniSONE 20 MG TAB PO SCH (07:22)
[2017-06-13] MEDS: PANTOPRAZOLE SODIUM 40 MG TAB PO SCH ×2 (07:23→22:41)
[2017-06-13] MEDS: ACETAMINOPHEN 325 MG TAB PO PRN ×2 (07:23→15:56)
[2017-06-13] MEDS: CHOLESTYRAMINE/SUCROSE 4 GM PKT PO SCH ×2 (07:23→22:42)
[2017-06-13] MEDS: OSELTAMIVIR PHOSPHATE 75 MG CAP PO SCH (07:23)
[2017-06-13] MEDS: ENOXAPARIN 40 MG/0.4 ML SYR SC SCH (07:25)
--- NOTE | 2017-06-13 16:31 | HOSPPROG ---
Hospitalist Progress Note Assessment/Plan: #Sepsis: resolved. Flu vs C diff #Influenza B: Tamiflu completed #Fall: slipped out of bed today and landed on buttocks. Reduce BZs as may be contributing #C diff colitis: PO vancomycin #Hypokalemia: repleting per protocol #Hypomagnesium: on protocol #Right-sided weakness: none today. Negative MRI #Deconditioning: PT. Likely needs rehab #Leukocytosis: resolved #Deconditioning: awaiting SNF placement. [place] evaluating, but will need formed stools. Patient stating he would leave and go to half-way. Since public safety issue with C diff being highly contagious, would contact half-way. he is agreeable to stay. #Diet: regular #DVT ppx: Lovenox #Disp: cont inpatient admission for Influenza, C diff, PT/OT. DC once accepted by SNF Subjective: loose stools this morning. Slipped out of bed this morning and hit buttock. Objective: Vital Signs Temp Pulse Resp BP Pulse Ox 36.6 C 101 H 18 134/92 H 92 06/13/17 15:58 06/13/17 15:58 06/13/17 15:58 06/13/17 15:58 06/13/17 15:58 Laboratory Results 06/11/17 04:42 06/13/17 05:15 06/12/17 06/13/17 06/14/17 05:59 05:59 05:59 Intake Total 1288 420 400 Output Total 1450 950 600 Balance -162 -530 -200 PT 13.9 SEC (12.0-15.0) 06/08/17 06:40 INR 1.05 (0.83-1.16) 06/08/17 06:40 - Physical Exam Constitutional: no apparent distress, other (ill-appearing) Eyes: PERRL Ears, Nose, Mouth, Throat: moist mucous membranes Cardiovascular: regular rate and rhythym, no murmur, rub, or gallop Respiratory: no respiratory distress, rhonchi Gastrointestinal: normoactive bowel sounds, soft, non-tender abdomen Genitourinary: no bladder fullness Skin: warm Musculoskeletal: full muscle strength Neurologic: AAOx3, CN II-XII Intact Psychiatric: depressed ICD10 Worksheet Patient Problems: Problems Problem Status Onset Right sided weakness Acute Adult failure to thrive Acute Alcohol abuse Acute Alcohol intoxication Acute Alcohol withdrawal Acute Alcoholic hepatitis Acute Clostridium difficile infection Acute ~01/23/17 EKG abnormality Acute GI bleed Acute Generalized weakness Acute Low back pain Acute
[2017-06-13] MEDS: traZODone 50 MG TAB PO SCH (22:41)
[2017-06-13] MEDS ORDERED: POTASSIUM CL 20 MEQ TAB ONE (22:53)
[2017-06-14] MEDS: BENZONATATE 100 MG CAP PO PRN (05:13)
[2017-06-14] MEDS: VANCOMYCIN 125 MG/2.5 ML UDL PO SCH ×4 (05:13→20:16)
[2017-06-14] MEDS: ALBUTEROL 3 ML DEYVIAL IH PRN ×2 (05:21→09:17)
[2017-06-14] MEDS: ONDANSETRON DISINTEGRATING 4 MG TAB PO PRN (05:31)
[2017-06-14 06:39] LABS: PLATELET COUNT 316 10^3/uL (150-400)
[2017-06-14] MEDS ORDERED: POTASSIUM CL 20 MEQ TAB PO ONE ×3 (07:34→12:00)
[2017-06-14] MEDS ORDERED: MAGNESIUM SULF 2 GM/WATER 50 ML IV ONE ×2 (07:34→10:13)
[2017-06-14] MEDS ORDERED: NS 500 ML IV ONE (07:37)
--- NOTE | 2017-06-14 07:44 | HOSPPROG ---
Hospitalist Progress Note Assessment/Plan: XC: Notified by RN about worsening hypoxia and tachypnea. On evaluation patient has decreased BS at R base and ronchi throughout. He is complaining of SOB although not significantly worse than prior. CBC reveals rising WBC and CXR shows RLL infiltrate with possible partial collapse. Will order levofloxacin for HCAP and post-flu Staph coverage. Also will order 500 mL NS, lactate, and blood cultures. Objective: Vital Signs Temp Pulse Resp BP Pulse Ox 36.9 C 105 H 14 125/87 H 93 06/14/17 04:00 06/14/17 04:59 06/14/17 05:22 06/14/17 04:00 06/14/17 05:22 Laboratory Results 06/14/17 06:15 06/14/17 06:15 06/13/17 06/14/17 06/15/17 05:59 05:59 05:59 Intake Total 420 700 Output Total 950 1000 Balance -530 -300 PT 13.9 SEC (12.0-15.0) 06/08/17 06:40 INR 1.05 (0.83-1.16) 06/08/17 06:40 ICD10 Worksheet Patient Problems: Problems Problem Status Onset Right sided weakness Acute Adult failure to thrive Acute Alcohol abuse Acute Alcohol intoxication Acute Alcohol withdrawal Acute Alcoholic hepatitis Acute Clostridium difficile infection Acute ~01/23/17 EKG abnormality Acute GI bleed Acute Generalized weakness Acute Low back pain Acute
[2017-06-14] MEDS ORDERED: levOFLOXACIN 500 MG/DEXTROSE 100 ML IV SCH ×2 (07:45→08:00)
--- NOTE | 2017-06-14 08:37 | HOSPPROG ---
Hospitalist Progress Note Assessment/Plan: #Acute hypoxic resp failure: new RLL PNA and parapneumonic effusion. Vanc/ Cefepime for HAP. CT chest to further eval -may need IR tap if not clinically improving #Sepsis: now with new PNA, parapneumonic effusion. Tachycardia, WBC mildly trending up. Check sputum/blood cultures. -Normal lactate -Vanc/Cefepime for HAP coverage/post-influenza Staph #Tachycardia: dehydrated with stools, insensible losses. Improved with IV boluses #Influenza B: Tamiflu completed #C diff colitis: PO vancomycin #Hypokalemia: repleting per protocol, add to IVFs #Hypomagnesium: on protocol #Right-sided weakness: none today. Negative MRI #Deconditioning: PT. Likely needs rehab #Leukocytosis: resolved #Deconditioning: awaiting SNF placement. [place] evaluating, but will need formed stools. Patient stating he would leave and go to snf. Since public safety issue with C diff being highly contagious, would contact snf. he is agreeable to stay. #Diet: regular #DVT ppx: Lovenox #Disp: cont inpatient admission for Influenza, C diff, PT/OT. DC once accepted by SNF Critical care time spent: 40 min. Time spent bedside with patient, reviewing labs/imaging, medication changes Subjective: feels heart racing, breathing fast. Cough Objective: Vital Signs Temp Pulse Resp BP Pulse Ox 36.9 C 105 H 14 125/87 H 93 06/14/17 04:00 06/14/17 04:59 06/14/17 05:22 06/14/17 04:00 06/14/17 05:22 Laboratory Results 06/14/17 06:15 06/14/17 06:15 06/13/17 06/14/17 06/15/17 05:59 05:59 05:59 Intake Total 420 700 Output Total 950 1000 Balance -530 -300 PT 13.9 SEC (12.0-15.0) 06/08/17 06:40 INR 1.05 (0.83-1.16) 06/08/17 06:40 - Time Spent With Patient Time Spent with Patient: greater than 35 minutes Time Spent with Patient: Greater than 35 minutes spent on this patients care, greater than 50% of time spent counseling, educating, and coordinating care regarding the above mentioned plan. - Physical Exam Constitutional: other (ill-appearing) Ears, Nose, Mouth, Throat: dry mucous membranes Cardiovascular: tachycardia Respiratory: other (increased WOB, using accessory muscles, RR 25, crackles right base) Gastrointestinal: normoactive bowel sounds, soft, non-tender abdomen Genitourinary: no bladder fullness Skin: other (diaphoretic) Musculoskeletal: other ([place] PICC line without erythema) Neurologic: AAOx3, CN II-XII Intact Psychiatric: flat affect ICD10 Worksheet Patient Problems: Problems Problem Status Onset Right sided weakness Acute Adult failure to thrive Acute Alcohol abuse Acute Alcohol intoxication Acute Alcohol withdrawal Acute Alcoholic hepatitis Acute Clostridium difficile infection Acute ~01/23/17 EKG abnormality Acute GI bleed Acute Generalized weakness Acute Low back pain Acute
[2017-06-14] MEDS ORDERED: NS 1,000 ML IV SCH (08:45)
[2017-06-14] MEDS: predniSONE 20 MG TAB PO SCH (09:29)
[2017-06-14] MEDS: PANTOPRAZOLE SODIUM 40 MG TAB PO SCH ×2 (09:29→20:16)
[2017-06-14] MEDS: ASPIRIN EC 81 MG TAB PO SCH (09:29)
[2017-06-14] MEDS: ENOXAPARIN 40 MG/0.4 ML SYR SC SCH (09:30)
[2017-06-14] MEDS ORDERED: NS 1,000 ML IV ONE (09:39)
[2017-06-14] MEDS ORDERED: POTASSIUM CL 10 MEQ TAB PO ONE (10:10)
[2017-06-14] MEDS: LORazepam 0.5 MG TAB PO PRN ×2 (10:24→20:29)
[2017-06-14] MEDS: VANCOMYCIN 1.25 GM in D5W 250 ML IV SCH ×2 (11:03→22:17)
[2017-06-14] MEDS: CHOLESTYRAMINE/SUCROSE 4 GM PKT PO SCH (11:41)
[2017-06-14] MEDS ORDERED: CALCIUM GLUCONATE 50 ML IV ONE (11:56)
[2017-06-14] MEDS ORDERED: NS W/ 20 KCl/L 1,000 ML IV SCH (12:00)
[2017-06-14] MEDS ORDERED: CALCIUM GLUCONATE 1 GM in D5W 50 ML IV ONE (12:30)
[2017-06-14] MEDS ORDERED: CALCIUM GLUCONATE 1 GM in NS 50 ML IV ONE (12:30)
--- NOTE | 2017-06-14 14:28 | ASMTCMCOM ---
CM Note CM Note Notes: DIscussed pts case in morning rounds. Pt completed 5 doses of tamiflu for influenza b. CM spoke w/ Mary at [facility]. [facility] is unable to accept until pt is able to form 3 bowel movements. Updates sent to facilities. CM to follow. Plan: SNF Date Signed: 06/14/2017 02:28 PM Electronically Signed By:CIERRA Willson
[2017-06-14] MEDS: CEFEPIME HCL 2 GM in STERILE WATER INJ 12.5 ML IV SCH ×2 (14:33→22:18)
--- NOTE | 2017-06-14 15:09 | WOCRNPDOC ---
WOCRN Advanced Assessment Note - Skin Integrity Problem, Advanced Assess Perianal Incont Assoc Dermatitis Dressing Type: Open to Air Eliana Wound Tissue: Denuded, Painful/Tender Wound Bed Color: Red Skin Integrity Problem Comment: Was asked to see patient by SADI Grant. Patient laying on his right side. Introduced myself and examined the patient's eliana- anal area. Skin is red, denuded, and painful to the touch. Patient reported to have had days of incontinent diarrhea. This appearance of this wound is consistent with incontinence associated dermatitis. Advised RN to continue use of calazime with each episode of incontinence. Wound care will not continue to follow this wound. Please reconsult PRN.
[2017-06-14] MEDS: GUAIFENESIN/DM 10 ML UDCUP PO PRN (16:01)
[2017-06-14] MEDS: traZODone 50 MG TAB PO SCH (20:16)
--- NOTE | 2017-06-14 20:16 | CPEKG ---
Heart Rate: 90 RR Interval: 667 P-R Interval: 140 QRSD Interval: 84 QT Interval: 384 QTC Interval: [address]: [address]: [address]: 70 EKG Severity - BORDERLINE ECG - EKG Impression: SINUS RHYTHM EKG Impression: LOW VOLTAGE IN FRONTAL LEADS EKG Impression: BORDERLINE T ABNORMALITIES, ANT-LAT LEADS Electronically Signed By: Morgan Mcghee 16-Jun-2017 12:29:29
[2017-06-14] MEDS: NS 1,000 ML IV SCH (20:18)
[2017-06-15] MEDS: VANCOMYCIN 125 MG/2.5 ML UDL PO SCH ×4 (06:00→20:40)
[2017-06-15] MEDS: CEFEPIME HCL 2 GM in STERILE WATER INJ 12.5 ML IV SCH ×3 (06:00→22:04)
[2017-06-15] MEDS: NS 1,000 ML IV SCH (06:03)
[2017-06-15] MEDS: LORazepam 0.5 MG TAB PO PRN ×2 (06:07→20:40)
[2017-06-15 06:48] LABS: PLATELET COUNT 273 10^3/uL (150-400)
[2017-06-15] MEDS ORDERED: FUROSEMIDE 40 MG/4 ML VIAL IVP SCH (09:00)
[2017-06-15] MEDS: VANCOMYCIN 1.25 GM in D5W 250 ML IV SCH (10:05)
[2017-06-15] MEDS: PANTOPRAZOLE SODIUM 40 MG TAB PO SCH (10:05)
[2017-06-15] MEDS: ASPIRIN EC 81 MG TAB PO SCH (10:06)
[2017-06-15] MEDS: ENOXAPARIN 40 MG/0.4 ML SYR SC SCH (10:06)
[2017-06-15] MEDS: GUAIFENESIN/DM 10 ML UDCUP PO PRN ×2 (10:21→22:09)
[2017-06-15] MEDS ORDERED: MAGNESIUM SULF 1 GM/DEXTROSE 100 ML IV ONE (10:24)
--- NOTE | 2017-06-15 14:01 | PCMIDPN ---
Assessment/Plan: Assessment: Pneumonia right-sided following influenza B. patient on cefepime and vancomycin. Will discontinue the vancomycin and continue on cefepime monotherapy. Plan: 1. Continue IV cefepime. 2. Discontinue IV vancomycin. Subjective: Patient states that he is doing somewhat better. Prefers to lay on his right side rather than his left secondary to shortness of breath. No fevers or chills. Objective: Vancomycin # 2 Cefepime # 2 Vital Signs Temp Pulse Resp BP Pulse Ox 36.5 C 87 23 H 143/95 H 88 L 06/15/17 11:28 06/15/17 11:28 06/15/17 11:28 06/15/17 11:28 06/15/17 11:28 Laboratory Results 06/15/17 06:15 06/15/17 06:15 06/14/17 06/15/17 06/16/17 05:59 05:59 05:59 Intake Total 700 4100 Output Total 9313 299 7400 Balance -300 3900 -2875 - Physical Exam General Appearance: WD/WN, alert, no apparent distress, non-toxic Respiratory: normal breath sounds, crackles (Right-sided), No lungs clear Cardiac/Chest: regular rate, rhythm, No tachycardia Skin: normal color, warm/dry, No rash Neuro/Psych: alert, normal mood/affect, oriented x 3 ICD10 Worksheet Patient Problems: Problems Problem Status Onset Right sided weakness Acute Adult failure to thrive Acute Alcohol abuse Acute Alcohol intoxication Acute Alcohol withdrawal Acute Alcoholic hepatitis Acute Clostridium difficile infection Acute ~01/23/17 EKG abnormality Acute GI bleed Acute Generalized weakness Acute Low back pain Acute
--- NOTE | 2017-06-15 15:08 | ASMTCMCOM ---
CM Note CM Note Notes: Pts case discussed in morning rounds. Facilities still reviewing clinical info. CM completed a medicaid pending questionnaire for [facility]. CM to follow. Plan: SNF Date Signed: 06/15/2017 03:07 PM Electronically Signed By:CIERRA Willson
[2017-06-15] MEDS: POTASSIUM CL 20 MEQ TAB PO SCH (16:51)
--- NOTE | 2017-06-15 17:56 | HOSPPROG ---
Hospitalist Progress Note Assessment/Plan: #Acute hypoxic resp failure: new RLL PNA plus volume overload -CXR personally reviewed shows increased edema this AM -IV lasix. Cont HAP coverage with Cefepime only #Sepsis: resolved. Due to post-influenza PNA, parapneumonic effusion. No e/o loculation. Check sputum/blood cultures. -Normal lactate #Tachycardia: dehydrated with stools, insensible losses. Improved with IV boluses #Influenza B: Tamiflu completed #C diff colitis: PO vancomycin #Hyperkalemia: up to 5.9 last night, normal today #Hypokalemia: due to diarrhea. Daily K #Hypomagnesium: on protocol #Right-sided weakness: none today. Negative MRI #Deconditioning: PT. Likely needs rehab #Leukocytosis: resolved with abx #Deconditioning: awaiting SNF placement. #Diet: regular #DVT ppx: Lovenox #Disp: cont inpatient admission for Influenza, C diff, PT/OT. DC once accepted by SNF Subjective: hard to breath. Feels anxious Objective: Vital Signs Temp Pulse Resp BP Pulse Ox 36.6 C 94 16 122/96 H 94 06/15/17 15:22 06/15/17 15:36 06/15/17 15:22 06/15/17 15:22 06/15/17 15:36 Laboratory Results 06/15/17 06:15 06/15/17 06:15 06/14/17 06/15/17 06/16/17 05:59 05:59 05:59 Intake Total 700 4100 Output Total 1383 448 4685 Balance -300 3900 -3200 PT 13.9 SEC (12.0-15.0) 06/08/17 06:40 INR 1.05 (0.83-1.16) 06/08/17 06:40 - Physical Exam Constitutional: other (ill appearing) Eyes: PERRL Ears, Nose, Mouth, Throat: moist mucous membranes Cardiovascular: regular rate and rhythym Respiratory: other (crackles, right base) Gastrointestinal: normoactive bowel sounds Genitourinary: no bladder fullness Skin: warm Musculoskeletal: full muscle strength Neurologic: AAOx3 ICD10 Worksheet Patient Problems: Problems Problem Status Onset Right sided weakness Acute Adult failure to thrive Acute Alcohol abuse Acute Alcohol intoxication Acute Alcohol withdrawal Acute Alcoholic hepatitis Acute Clostridium difficile infection Acute ~01/23/17 EKG abnormality Acute GI bleed Acute Generalized weakness Acute Low back pain Acute
[2017-06-15] MEDS: traZODone 50 MG TAB PO SCH (20:40)
[2017-06-15] MEDS: PANTOPRAZOLE SODIUM 40 MG VIAL IVP SCH (20:40)
[2017-06-15] MEDS ORDERED: VANCOMYCIN 1.25 GM in NS 250 ML IV SCH (21:00)
[2017-06-16] MEDS: CEFEPIME HCL 2 GM in STERILE WATER INJ 12.5 ML IV SCH (05:58)
[2017-06-16] MEDS: VANCOMYCIN 125 MG/2.5 ML UDL PO SCH ×4 (05:59→20:08)
[2017-06-16] MEDS: LORazepam 0.5 MG TAB PO PRN ×2 (06:01→20:53)
[2017-06-16] MEDS ORDERED: MAGNESIUM SULF 1 GM/DEXTROSE 100 ML IV ONE (07:21)
[2017-06-16] MEDS ORDERED: PROTOCOL POTASSIUM 1 DOSE MISC PRN (08:56)
[2017-06-16] MEDS: POTASSIUM CL 20 MEQ TAB PO SCH (09:05)
[2017-06-16] MEDS ORDERED: POTASSIUM CL 10 MEQ TAB PO ONE ×3 (09:06→21:45)
[2017-06-16] MEDS: ENOXAPARIN 40 MG/0.4 ML SYR SC SCH (09:55)
[2017-06-16] MEDS: PANTOPRAZOLE SODIUM 40 MG VIAL IVP SCH ×2 (09:56→20:11)
[2017-06-16] MEDS: ASPIRIN EC 81 MG TAB PO SCH (09:56)
[2017-06-16] MEDS: ACETAMINOPHEN 325 MG TAB PO PRN (09:57)
[2017-06-16] MEDS: FUROSEMIDE 20 MG/2 ML VIAL IVP SCH (09:57)
--- NOTE | 2017-06-16 10:35 | PCMIDPN ---
Assessment/Plan: 1. Multi lobar pneumonia in the setting of influenza B: Patient received 5 days of Tamiflu. He was recently started on vancomycin intravenously and cefepime. I think a more resistant pathogen such as Pseudomonas seems less likely. Will change cefepime to ceftriaxone 2 g IV daily , especially given that his oxygen requirements are stable, and his white blood cell count is down. The patient also needs aggressive pulmonary toilet. Suspect he has a component of failure in addition, exacerbating his chest x-ray appearance. He is unable to expectorate or give us a sputum sample. 2. C difficile colitis: Better. 2nd episode, previous episode was in January. Continue vancomycin 125 mg four times daily. Would continue or a week after antibiotics for pneumonia end. 3. Homelessness: HIV negative. Hepatitis-B surface antibody negative and surface antigen negative. Given outbreak of hepatitis a in the homeless community, will obtain hepatitis a total antibody and give Twinrix if not immune. Hepatitis-C negative. Over 25 min was spent with this patient today. 06/16/17 10:36 Subjective: In fairly good spirits today. Still feels sick from the flu. Not able to really cough anything up. Diarrhea has improved. Now has formed stool. Objective: Cefepime 2 g IV q.8 hours day 2. Vancomycin 125 mg four times daily day 8 Afebrile Vital Signs Temp Pulse Resp BP Pulse Ox 36.8 C 95 22 H 144/100 H 93 06/16/17 07:38 06/16/17 07:38 06/16/17 07:38 06/16/17 07:38 06/16/17 07:38 Laboratory Results 06/16/17 06:00 06/16/17 06:00 06/15/17 06/16/17 06/17/17 05:59 05:59 05:59 Intake Total 4100 1147.5 Output Total 200 3800 Balance 3900 -2652.5 Blood cultures June 14 give Chest x-ray yesterday shows worsening of the lobar pneumonia. Minimal pleural effusions. - Physical Exam General Appearance: no apparent distress, obese, other (Sounds congested) EENT: No scleral icterus, No thrush Respiratory: other (Very poor inspiratory effort. Can barely hear lung sounds.) Abdomen: other (Obese, soft.) Skin: other (Multiple tattoos.), No rash Neuro/Psych: other (Patient is paralyzed on the right side of his body.) ICD10 Worksheet Patient Problems: Problems Problem Status Onset Right sided weakness Acute Adult failure to thrive Acute Alcohol abuse Acute Alcohol intoxication Acute Alcohol withdrawal Acute Alcoholic hepatitis Acute Clostridium difficile infection Acute ~01/23/17 EKG abnormality Acute GI bleed Acute Generalized weakness Acute Low back pain Acute
[2017-06-16] MEDS ORDERED: MAGNESIUM SULF 1 GM/DEXTROSE 100 ML BAG IV ONE (10:42)
[2017-06-16 12:28] LABS: HEPATITIS A ANTIBODY TOTAL POSITIVE (NEGATIVE); HEPATITIS B CORE AB TOTAL NEGATIVE (NEGATIVE)
[2017-06-16 13:13] LABS: HEPATITIS A ANTIBODY IGM (BCH) NEGATIVE (NEGATIVE)
[2017-06-16] MEDS ORDERED: FUROSEMIDE 20 MG/2 ML VIAL IVP ONE ×2 (13:40→19:00)
[2017-06-16] MEDS ORDERED: MAGNESIUM SULF 2 GM/WATER 50 ML IV ONE (13:42)
--- NOTE | 2017-06-16 13:48 | HOSPPROG ---
Hospitalist Progress Note Assessment/Plan: #Acute hypoxic resp failure: new RLL PNA plus volume overload Additional Lasix today #Sepsis: resolved. Due to post-influenza PNA, parapneumonic effusion. No e/o loculation. Check sputum/blood cultures. -Normal lactate #Tachycardia: monitor #Influenza B: Tamiflu completed #C diff colitis: PO vancomycin, still with diarrhea #Hyperkalemia: up to 5.9 last night, normal today #Hypokalemia: due to diarrhea. Daily K #Hypomagnesium: on protocol #Right-sided weakness: none today. Negative MRI #Deconditioning: PT. Likely needs rehab #Leukocytosis: resolved with abx #Deconditioning: awaiting SNF placement. #Diet: regular #DVT ppx: change to SCD's #Disp: cont inpatient admission for Influenza, C diff, PT/OT. DC once accepted by SNF Plan: -Additional Lasix -Long hx of tobacco abuse. He is not moving air well, will schedule Steroids. Suspect obstructive component contributing to resp failure as well. -Replace K and Mg -D/c aspirin as + blood in stool. Monitor H/H which is currently stable. Hold Lovenox. Start SCD's -Abx being changed to Rocephin per ID Subjective: still with SOB, on 5 L O2. BP ok. Afebrile. Objective: Vital Signs Temp Pulse Resp BP Pulse Ox 36.6 C 88 18 125/86 H 96 06/16/17 11:05 06/16/17 11:05 06/16/17 11:05 06/16/17 11:05 06/16/17 11:05 Laboratory Results 06/16/17 06:00 06/16/17 06:00 06/15/17 06/16/17 06/17/17 05:59 05:59 05:59 Intake Total 4100 1147.5 300 Output Total 200 3800 Balance 3900 -2652.5 300 PT 13.9 SEC (12.0-15.0) 06/08/17 06:40 INR 1.05 (0.83-1.16) 06/08/17 06:40 - Physical Exam Constitutional: no apparent distress Eyes: PERRL, EOMI Ears, Nose, Mouth, Throat: moist mucous membranes Cardiovascular: regular rate and rhythym, No edema Respiratory: reduced air movement, expiratory wheeze Gastrointestinal: normoactive bowel sounds Genitourinary: no bladder fullness Skin: warm Neurologic: AAOx3 Psychiatric: interacting appropriately, not anxious, not encephalopathic ICD10 Worksheet Patient Problems: Problems Problem Status Onset Right sided weakness Acute Adult failure to thrive Acute Alcohol abuse Acute Alcohol intoxication Acute Alcohol withdrawal Acute Alcoholic hepatitis Acute Clostridium difficile infection Acute ~01/23/17 EKG abnormality Acute GI bleed Acute Generalized weakness Acute Low back pain Acute
[2017-06-16] MEDS: cefTRIAXone 2 GM in STERILE WATER INJ 20 ML IV SCH (14:02)
[2017-06-16] MEDS: methylPREDNISolone SOD SUCC 125 MG/2 ML VIAL IVP SCH ×2 (14:09→20:08)
--- NOTE | 2017-06-16 15:08 | ASMTCMCOM ---
CM Note CM Note Notes: 06/16/2017 Case Management Note Left vm for Kadeem at [facility] requesting status on application. Jayde to present pt to administration at [facility] however, today pt oxygen needs are to high for [facility]. Pt will need three formed stools before [facility] would consider taking pt. [facility] is not taking patients at this time due to influenza in the facility. Faxed additional referals to all facilities in [facility]. Pt has completed the [facility] process. Case Management to call [facility] [phone] with placement and she will fax all necessary state paperwork. terminal gauger medicaid application is in process. Case Management d/c poc: to SNF if accepted vs homeless nursing home. Case Management to continue to follow. Date Signed: 06/16/2017 03:07 PM Electronically Signed By:Norma Flannery RN
[2017-06-16] MEDS: traZODone 50 MG TAB PO SCH (20:11)
[2017-06-16] MEDS: GUAIFENESIN/DM 10 ML UDCUP PO PRN (20:53)
[2017-06-17] MEDS: GUAIFENESIN/DM 10 ML UDCUP PO PRN ×3 (04:18→20:05)
[2017-06-17] MEDS: VANCOMYCIN 125 MG/2.5 ML UDL PO SCH ×4 (05:47→20:05)
[2017-06-17 06:04] LABS: PLATELET COUNT 280 10^3/uL (150-400)
[2017-06-17] MEDS ORDERED: POTASSIUM CL 10 MEQ TAB PO ONE ×2 (07:09→18:45)
[2017-06-17] MEDS ORDERED: MAGNESIUM SULF 1 GM/DEXTROSE 100 ML IV ONE (07:11)
[2017-06-17] MEDS: POTASSIUM CL 20 MEQ TAB PO SCH (08:03)
[2017-06-17] MEDS: cefTRIAXone 2 GM in STERILE WATER INJ 20 ML IV SCH (08:03)
[2017-06-17] MEDS: ENOXAPARIN 40 MG/0.4 ML SYR SC SCH (08:03)
[2017-06-17] MEDS: methylPREDNISolone SOD SUCC 125 MG/2 ML VIAL IVP SCH ×2 (08:03→20:03)
[2017-06-17] MEDS: FUROSEMIDE 20 MG/2 ML VIAL IVP SCH ×2 (08:04→14:07)
[2017-06-17] MEDS: LORazepam 0.5 MG TAB PO PRN ×2 (08:15→20:04)
[2017-06-17] MEDS: PANTOPRAZOLE SODIUM 40 MG VIAL IVP SCH ×2 (09:49→20:03)
--- NOTE | 2017-06-17 12:50 | HOSPPROG ---
Hospitalist Progress Note Assessment/Plan: #Acute hypoxic resp failure: new RLL PNA plus volume overload Improved after Lasix and Steroids #Sepsis: resolved. Due to post-influenza PNA, parapneumonic effusion. No e/o loculation. Check sputum/blood cultures. -Normal lactate #Tachycardia: monitor #Influenza B: Tamiflu completed #C diff colitis: PO vancomycin, still with diarrhea #Hyperkalemia: up to 5.9 last night, normal today #Hypokalemia: due to diarrhea. Daily K #Hypomagnesium: on protocol #Right-sided weakness: none today. Negative MRI #Deconditioning: PT. Likely needs rehab #Leukocytosis: resolved with abx #Deconditioning: awaiting SNF placement. #Diet: regular #DVT ppx: change to SCD's #Disp: cont inpatient admission for Influenza, C diff, PT/OT. DC once accepted by SNF Plan: -He is refusing Lasix today, will hopefully take it this afternoon -Cont IV steroids -Replace K and Mg -D/c aspirin as + blood in stool. Monitor H/H which is currently stable. Hold Lovenox. Start SCD's Subjective: Breathing is better. No LE edema. Still Hypoxic. He is refusing Lasix Objective: Vital Signs Temp Pulse Resp BP Pulse Ox 36.6 C 88 13 116/74 91 L 06/17/17 03:52 06/17/17 03:52 06/17/17 03:52 06/17/17 03:52 06/17/17 03:52 Laboratory Results 06/17/17 05:40 06/17/17 05:40 06/16/17 06/17/17 06/18/17 05:59 05:59 05:59 Intake Total 1147.5 1140 Output Total 3800 1020 Balance -2652.5 120 PT 13.9 SEC (12.0-15.0) 06/08/17 06:40 INR 1.05 (0.83-1.16) 06/08/17 06:40 - Physical Exam Constitutional: no apparent distress Eyes: PERRL, EOMI Ears, Nose, Mouth, Throat: moist mucous membranes, hearing normal Cardiovascular: regular rate and rhythym, No edema Respiratory: no respiratory distress, reduced air movement Gastrointestinal: normoactive bowel sounds, soft, non-tender abdomen Skin: warm Musculoskeletal: generalized weakness Neurologic: AAOx3 Psychiatric: interacting appropriately, not anxious, not encephalopathic Lymph, Heme, Immunologic: No petechiae ICD10 Worksheet Patient Problems: Problems Problem Status Onset Right sided weakness Acute Adult failure to thrive Acute Alcohol abuse Acute Alcohol intoxication Acute Alcohol withdrawal Acute Alcoholic hepatitis Acute Clostridium difficile infection Acute ~01/23/17 EKG abnormality Acute GI bleed Acute Generalized weakness Acute Low back pain Acute
[2017-06-17] MEDS: BENZONATATE 100 MG CAP PO PRN (15:48)
--- NOTE | 2017-06-17 16:10 | PCMIDPN ---
Assessment/Plan: Assessment/Plan: * Multifocal pneumonia in the setting of influenza B: Unclear how much pneumonia may be related to primary viral infection given patchy nature versus superimposed bacterial infection after influenza. Plan 5 days of antibiotics ( day 3/5 for possible superimposed bacterial infection as would like to limit antibiotic exposure in the setting of recurrent C difficile). * Recurrent C difficile colitis: Still with diarrhea. Resolution likely to be slow with concomitant ceftriaxone use. Continue four times daily oral vancomycin. 06/17/17 16:06 Subjective: Patient complains of persistent diarrhea. Ongoing cough with dyspnea as well. Objective: Vital Signs Temp Pulse Resp BP Pulse Ox 36.7 C 86 16 106/73 94 06/17/17 15:41 06/17/17 15:41 06/17/17 15:41 06/17/17 15:41 06/17/17 15:41 Laboratory Results 06/17/17 05:40 06/17/17 05:40 06/16/17 06/17/17 06/18/17 05:59 05:59 05:59 Intake Total 1147.5 1140 362.5 Output Total 3800 1020 450 Balance -2652.5 120 -87.5 Ceftriaxone # 2 (antibacterials # 3) Status post 5 days of Tamiflu Oral vancomycin # 9 Laboratory Tests 06/16/17 06:00 Hepatitis A Ab Total POSITIVE - Physical Exam General Appearance: alert, no apparent distress EENT: No thrush Respiratory: lungs clear, other (Episodic cough present), No respiratory distress Cardiac/Chest: regular rate, rhythm Abdomen: non-tender, No distended ICD10 Worksheet Patient Problems: Problems Problem Status Onset Right sided weakness Acute Adult failure to thrive Acute Alcohol abuse Acute Alcohol intoxication Acute Alcohol withdrawal Acute Alcoholic hepatitis Acute Clostridium difficile infection Acute ~01/23/17 EKG abnormality Acute GI bleed Acute Generalized weakness Acute Low back pain Acute
[2017-06-17] MEDS: traZODone 50 MG TAB PO SCH (20:04)
[2017-06-17] MEDS: TEMAZEPAM 15 MG CAP PO PRN (20:25)
[2017-06-18] MEDS: VANCOMYCIN 125 MG/2.5 ML UDL PO SCH ×4 (05:10→20:28)
[2017-06-18] MEDS ORDERED: POTASSIUM CL 10 MEQ TAB PO ONE ×2 (07:55→19:48)
[2017-06-18] MEDS ORDERED: MAGNESIUM SULF 1 GM/DEXTROSE 100 ML IV ONE (07:55)
[2017-06-18] MEDS: cefTRIAXone 2 GM in STERILE WATER INJ 20 ML IV SCH (08:20)
[2017-06-18] MEDS: ENOXAPARIN 40 MG/0.4 ML SYR SC SCH (08:20)
[2017-06-18] MEDS: GUAIFENESIN/DM 10 ML UDCUP PO PRN ×3 (08:20→20:28)
[2017-06-18] MEDS: BENZONATATE 100 MG CAP PO PRN ×3 (08:21→20:26)
[2017-06-18] MEDS: FUROSEMIDE 20 MG/2 ML VIAL IVP SCH (08:21)
[2017-06-18] MEDS: POTASSIUM CL 20 MEQ TAB PO SCH (08:21)
[2017-06-18] MEDS: methylPREDNISolone SOD SUCC 125 MG/2 ML VIAL IVP SCH (08:21)
[2017-06-18] MEDS: PANTOPRAZOLE SODIUM 40 MG VIAL IVP SCH ×2 (08:21→20:26)
[2017-06-18] MEDS: LORazepam 0.5 MG TAB PO PRN ×2 (08:22→20:27)
[2017-06-18] MEDS ORDERED: FUROSEMIDE 20 MG/2 ML VIAL IVP ONE (12:55)
--- NOTE | 2017-06-18 13:01 | HOSPPROG ---
Hospitalist Progress Note Assessment/Plan: #Acute hypoxic resp failure: new RLL PNA plus volume overload Improved after Lasix and Steroids #Sepsis: resolved. Due to post-influenza PNA, parapneumonic effusion. No e/o loculation. Check sputum/blood cultures. -Normal lactate #Tachycardia: monitor #Influenza B: Tamiflu completed #C diff colitis: PO vancomycin, still with diarrhea #Hyperkalemia: up to 5.9 last night, normal today #Hypokalemia: due to diarrhea. Daily K #Hypomagnesium: on protocol #Right-sided weakness: none today. Negative MRI #Deconditioning: PT. Likely needs rehab #Leukocytosis: resolved with abx #Deconditioning: awaiting SNF placement. #Diet: regular #DVT ppx: change to SCD's #Disp: cont inpatient admission for Influenza, C diff, PT/OT. DC once accepted by SNF Plan: -From a Resp standpoint he is improving. Volume status is improving. Cont with 20mg IV Lasix, will give additional dose (40mg for the day) today. He was several Kilos up. Change to Prednisone with taper. Daily weights. TTE c/w preserved LVEF -cont Rocephin per ID. -Replace K and Mg -Cont PO Vanco, stools are getting better -D/c aspirin as + blood in stool. Monitor H/H which is currently stable. Hold Lovenox. cont SCD's Subjective: resp status feeling better. He is able to take a deep breath w/o lots of coughing. O2 needs are decreasing. Objective: Vital Signs Temp Pulse Resp BP Pulse Ox 36.4 C 84 16 137/86 H 100 06/18/17 08:00 06/18/17 08:00 06/18/17 08:00 06/18/17 08:00 06/18/17 11:00 Laboratory Results 06/17/17 05:40 06/18/17 05:10 06/17/17 06/18/17 06/19/17 05:59 05:59 05:59 Intake Total 1140 962.5 Output Total 1020 1050 Balance 120 -87.5 PT 13.9 SEC (12.0-15.0) 06/08/17 06:40 INR 1.05 (0.83-1.16) 06/08/17 06:40 - Physical Exam Constitutional: no apparent distress Eyes: PERRL Ears, Nose, Mouth, Throat: moist mucous membranes Cardiovascular: regular rate and rhythym, No edema Respiratory: no respiratory distress, reduced air movement, expiratory wheeze Gastrointestinal: normoactive bowel sounds, soft, non-tender abdomen Genitourinary: no bladder fullness Skin: warm Neurologic: AAOx3 Psychiatric: interacting appropriately, not anxious, not encephalopathic Lymph, Heme, Immunologic: No petechiae ICD10 Worksheet Patient Problems: Problems Problem Status Onset Right sided weakness Acute Adult failure to thrive Acute Alcohol abuse Acute Alcohol intoxication Acute Alcohol withdrawal Acute Alcoholic hepatitis Acute Clostridium difficile infection Acute ~01/23/17 EKG abnormality Acute GI bleed Acute Generalized weakness Acute Low back pain Acute
--- NOTE | 2017-06-18 16:59 | PCMIDPN ---
Assessment/Plan: Assessment/Plan: * Multifocal pneumonia in the setting of influenza B: Slow clinical improvement. Completing 5 days of ceftriaxone (day # 4/5) for possible superimposed bacterial pneumonia although suspect findings may be primarily related to influenza. * Recurrent C difficile colitis: Diarrhea present but overall decreasing with firmer stool beginning. Continue four times daily oral vancomycin. Will need prolonged course given recurrent nature of his disease and recent antibiotic exposure. 06/18/17 16:56 Subjective: Patient with persistent cough. Notes diarrhea continues but stools firming up and less frequent. Objective: Vital Signs Temp Pulse Resp BP Pulse Ox 36.4 C 84 16 137/86 H 100 06/18/17 08:00 06/18/17 08:00 06/18/17 08:00 06/18/17 08:00 06/18/17 11:00 Laboratory Results 06/17/17 05:40 06/18/17 05:10 06/17/17 06/18/17 06/19/17 05:59 05:59 05:59 Intake Total 1140 962.5 Output Total 1020 1050 Balance 120 -87.5 Ceftriaxone # 4/5 Status post Tamiflu Oral vancomycin four times daily - Physical Exam General Appearance: alert, no apparent distress EENT: No scleral icterus, No thrush Respiratory: lungs clear, No respiratory distress Cardiac/Chest: regular rate, rhythm Abdomen: tender (Mild in epigastrium without peritoneal signs), No distended ICD10 Worksheet Patient Problems: Problems Problem Status Onset Right sided weakness Acute Adult failure to thrive Acute Alcohol abuse Acute Alcohol intoxication Acute Alcohol withdrawal Acute Alcoholic hepatitis Acute Clostridium difficile infection Acute ~01/23/17 EKG abnormality Acute GI bleed Acute Generalized weakness Acute Low back pain Acute
[2017-06-18] MEDS: traZODone 50 MG TAB PO SCH (20:28)
[2017-06-18] MEDS: TEMAZEPAM 15 MG CAP PO PRN (20:28)
[2017-06-19] MEDS: VANCOMYCIN 125 MG/2.5 ML UDL PO SCH ×4 (05:58→21:23)
[2017-06-19] MEDS: GUAIFENESIN/DM 10 ML UDCUP PO PRN ×3 (06:17→21:22)
[2017-06-19 06:23] LABS: PLATELET COUNT 271 10^3/uL (150-400)
[2017-06-19] MEDS ORDERED: POTASSIUM CL 10 MEQ TAB PO ONE ×3 (08:18→22:25)
[2017-06-19] MEDS ORDERED: predniSONE 20 MG TAB PO SCH (09:00)
[2017-06-19] MEDS: LORazepam 0.5 MG TAB PO PRN ×2 (10:49→21:23)
[2017-06-19] MEDS: POTASSIUM CL 20 MEQ TAB PO SCH (10:49)
[2017-06-19] MEDS: FUROSEMIDE 20 MG/2 ML VIAL IVP SCH (10:50)
[2017-06-19] MEDS: ENOXAPARIN 40 MG/0.4 ML SYR SC SCH (10:51)
[2017-06-19] MEDS: PANTOPRAZOLE SODIUM 40 MG VIAL IVP SCH (10:52)
[2017-06-19] MEDS: cefTRIAXone 2 GM in STERILE WATER INJ 20 ML IV SCH (10:52)
--- NOTE | 2017-06-19 12:06 | ASMTCMCOM ---
CM Note CM Note Notes: 06/19/2017 Case Management Note Met w/pt this morning. Pt states desire to live at SNF facility for 30 days. Faxed updates to all SNF referral facilities. Spoke w/ Jayde from [facility]. Jayde has a shared room for pt which means he will need to be off all contact precautions. She stated pt needs formed stools to be accepted at her facility. Jayde requested daily updates and has not agreed to accept pt at this time. Case Management d/c poc: possible SNF if accepted vs. homeless [facility]. Case Management to follow. Date Signed: 06/19/2017 12:06 PM Electronically Signed By:Norma Flannery RN
[2017-06-19] MEDS: ACETAMINOPHEN 325 MG TAB PO PRN (13:43)
--- NOTE | 2017-06-19 15:26 | PCMIDPN ---
Assessment/Plan: Assessment: Pneumonia right-sided following influenza B. Patient currently on ceftriaxone monotherapy. Appears to be clinically improved. Continues to have significant loose stools. On treatment for C difficile colitis as well. Will continue both the IV ceftriaxone and oral vancomycin and follow clinical course.. Plan: 1. Continue IV ceftriaxone. 2. Continue p.o. vancomycin. Anticipate 2 weeks total course. 3. Follow stool frequency and consistency. 06/19/17 15:22 Subjective: Patient is resting in his hospital bed. He states he feels somewhat improved. Notes that it is difficult to get good rest. No fevers or chills. Continues to have loose stools and is grateful for his bedside commode being so close. Objective: Ceftriaxone # 5/5 P.o. vancomycin # / Vital Signs Temp Pulse Resp BP Pulse Ox 36.7 C 88 18 132/84 H 92 06/19/17 07:55 06/19/17 07:55 06/19/17 07:55 06/19/17 07:55 06/19/17 07:55 Microbiology 06/14/17 09:57 Blood Culture - Final Blood 06/14/17 08:00 Blood Culture - Final Blood Laboratory Results 06/19/17 06:00 06/19/17 06:00 06/18/17 06/19/17 06/20/17 05:59 05:59 05:59 Intake Total 962.5 1380 Output Total 1050 1150 Balance -87.5 230 - Physical Exam General Appearance: WD/WN, alert, no apparent distress, non-toxic Respiratory: lungs clear, normal breath sounds, No respiratory distress Cardiac/Chest: regular rate, rhythm, No tachycardia Extremities: non-tender, normal inspection Skin: normal color, warm/dry, No rash Neuro/Psych: alert, normal mood/affect, oriented x 3 ICD10 Worksheet Patient Problems: Problems Problem Status Onset Right sided weakness Acute Adult failure to thrive Acute Alcohol abuse Acute Alcohol intoxication Acute Alcohol withdrawal Acute Alcoholic hepatitis Acute Clostridium difficile infection Acute ~01/23/17 EKG abnormality Acute GI bleed Acute Generalized weakness Acute Low back pain Acute
--- NOTE | 2017-06-19 18:07 | HOSPPROG ---
Hospitalist Progress Note Assessment/Plan: * Post-influenza PNA with septic shock -was in ICU on pressors - BP now stable -IV ceftriaxone * Acute respiratory failure -was on 9L - now wean down to 2L * Cdiff colitis -PO vanco * Influenza B -s/p tamiflu * Right sided weakness - non-organic -neuro exam non-consistent -extensive MRI imaging unremarkable Subjective: Stools still loose Objective: Vital Signs Temp Pulse Resp BP Pulse Ox 36.2 C 76 18 126/85 H 95 06/19/17 15:58 06/19/17 15:58 06/19/17 15:58 06/19/17 15:58 06/19/17 15:58 Microbiology 06/14/17 09:57 Blood Culture - Final Blood 06/14/17 08:00 Blood Culture - Final Blood Laboratory Results 06/19/17 06:00 06/19/17 06:00 06/18/17 06/19/17 06/20/17 05:59 05:59 05:59 Intake Total 962.5 1380 Output Total 1050 1150 600 Balance -87.5 230 -600 PT 13.9 SEC (12.0-15.0) 06/08/17 06:40 INR 1.05 (0.83-1.16) 06/08/17 06:40 CT chest - PNA, no loculated effusion CXR viewed, my personal interpretation is - bilateral infiltrates with increase in RLL - Physical Exam Constitutional: no apparent distress, appears nourished, not in pain Cardiovascular: regular rate and rhythym, no murmur, rub, or gallop Respiratory: no respiratory distress, no rales or rhonchi, clear to auscultation Gastrointestinal: normoactive bowel sounds, soft, non-tender abdomen, no palpable masses Skin: no rashes or abrasions, no fluctuance, no induration Neurologic: AAOx3, sensation intact bilaterally Psychiatric: interacting appropriately, not anxious, not encephalopathic, thought process linear ICD10 Worksheet Patient Problems: Problems Problem Status Onset Right sided weakness Acute Adult failure to thrive Acute Alcohol abuse Acute Alcohol intoxication Acute Alcohol withdrawal Acute Alcoholic hepatitis Acute Clostridium difficile infection Acute ~01/23/17 EKG abnormality Acute GI bleed Acute Generalized weakness Acute Low back pain Acute
[2017-06-19] MEDS: CHOLESTYRAMINE/SUCROSE 4 GM PKT PO SCH (21:22)
[2017-06-19] MEDS: traZODone 50 MG TAB PO SCH (21:23)
[2017-06-19] MEDS: PANTOPRAZOLE SODIUM 40 MG TAB PO SCH (21:23)
[2017-06-19] MEDS: LABETALOL HCL 100 MG TAB PO SCH (22:10)
[2017-06-19] MEDS: TEMAZEPAM 15 MG CAP PO PRN (22:10)
[2017-06-20] MEDS: VANCOMYCIN 125 MG/2.5 ML UDL PO SCH ×4 (06:15→20:21)
[2017-06-20 06:37] LABS: PLATELET COUNT 270 10^3/uL (150-400)
[2017-06-20] MEDS ORDERED: POTASSIUM CL 10 MEQ TAB PO ONE ×2 (07:15→21:03)
--- NOTE | 2017-06-20 09:56 | PCMIDPN ---
Assessment/Plan: Assessment:/Plan: 1. Bilateral pneumonia, likely secondary bacterial infection after recent Influenza B (06/08/17): -Was on cefepime, most recently has been on Ceftriaxone. Currently D#7. D/c ceftriaxone after todays dose as has completed a course of therapy. -REcent CXR from 06/15/17 noted with some improvment. Will need f/u over time to ensure changes have resolved -wbc stable, creatinine stable. - care coordinated with Rn 2. Recurrent C. diff: - currently on oral vanco q6. - plan for two weeks therapy counting from tomorrow since today is last day of antibiotics. - contact isolation Meds ceftraixone 2g daily- 06/16/17 vanco 125gm q6- 06/09/17 s/p cefepime 06/14-06/16 Subjective: afebrile. feeling better little by little each day. less overall cough. not really bringing up sputum.less sob with exertion. still with loose mushy stools. 3x so far today. denies abd pain . has some bloating. appetite intact. Objective: Vital Signs Temp Pulse Resp BP Pulse Ox 36.6 C 88 17 121/75 H 99 06/20/17 05:33 06/20/17 05:33 06/20/17 05:33 06/20/17 05:33 06/20/17 05:33 Microbiology 06/14/17 09:57 Blood Culture - Final Blood 06/14/17 08:00 Blood Culture - Final Blood Laboratory Results 06/20/17 06:30 06/20/17 06:30 06/19/17 06/20/17 06/21/17 05:59 05:59 05:59 Intake Total 1380 930 Output Total 1150 1000 Balance 230 -70 - Physical Exam General Appearance: alert, no apparent distress Respiratory: coarse breath sounds (mild) Cardiac/Chest: regular rate, rhythm Extremities: No swelling Abdomen: normal bowel sounds, non-tender, soft, No distended Skin: No rash ICD10 Worksheet Patient Problems: Problems Problem Status Onset Right sided weakness Acute Adult failure to thrive Acute Alcohol abuse Acute Alcohol intoxication Acute Alcohol withdrawal Acute Alcoholic hepatitis Acute Clostridium difficile infection Acute ~01/23/17 EKG abnormality Acute GI bleed Acute Generalized weakness Acute Low back pain Acute
[2017-06-20] MEDS: GUAIFENESIN/DM 10 ML UDCUP PO PRN ×2 (10:04→21:12)
[2017-06-20] MEDS: CHOLESTYRAMINE/SUCROSE 4 GM PKT PO SCH ×2 (10:04→20:21)
[2017-06-20] MEDS: LABETALOL HCL 100 MG TAB PO SCH ×2 (10:07→20:22)
[2017-06-20] MEDS: LORazepam 0.5 MG TAB PO PRN ×2 (10:07→21:13)
[2017-06-20] MEDS: cefTRIAXone 2 GM in STERILE WATER INJ 20 ML IV SCH (10:08)
[2017-06-20] MEDS: PANTOPRAZOLE SODIUM 40 MG TAB PO SCH ×2 (10:08→20:21)
[2017-06-20] MEDS: ENOXAPARIN 40 MG/0.4 ML SYR SC SCH (10:08)
[2017-06-20] MEDS: ONDANSETRON DISINTEGRATING 4 MG TAB PO PRN (16:54)
--- NOTE | 2017-06-20 17:28 | HOSPPROG ---
Hospitalist Progress Note Assessment/Plan: * Post-influenza PNA with septic shock -was in ICU on [facility] - BP now stable -IV ceftriaxone - finished after today's dose * Acute respiratory failure -was on 9L - now wean down to 2L * Cdiff colitis -PO vanco * Influenza B -s/p tamiflu * Right sided weakness - non-organic -neuro exam non-consistent -extensive MRI imaging unremarkable Dispo - accepted to SNF once stools are formed Subjective: Loose stools today Objective: Vital Signs Temp Pulse Resp BP Pulse Ox 37.0 C 82 17 124/78 H 98 06/20/17 14:07 06/20/17 14:07 06/20/17 14:07 06/20/17 14:07 06/20/17 14:07 Microbiology 06/14/17 09:57 Blood Culture - Final Blood 06/14/17 08:00 Blood Culture - Final Blood Laboratory Results 06/20/17 06:30 06/20/17 06:30 06/19/17 06/20/17 06/21/17 05:59 05:59 05:59 Intake Total 1380 930 220 Output Total 1150 1000 250 Balance 230 -70 -30 PT 13.9 SEC (12.0-15.0) 06/08/17 06:40 INR 1.05 (0.83-1.16) 06/08/17 06:40 - Physical Exam Constitutional: no apparent distress, appears nourished, not in pain Cardiovascular: regular rate and rhythym, no murmur, rub, or gallop Respiratory: no respiratory distress, no rales or rhonchi, clear to auscultation Gastrointestinal: normoactive bowel sounds, soft, non-tender abdomen, no palpable masses Skin: no rashes or abrasions, no fluctuance, no induration Neurologic: AAOx3, sensation intact bilaterally Psychiatric: interacting appropriately, not anxious, not encephalopathic, thought process linear ICD10 Worksheet Patient Problems: Problems Problem Status Onset Right sided weakness Acute Adult failure to thrive Acute Alcohol abuse Acute Alcohol intoxication Acute Alcohol withdrawal Acute Alcoholic hepatitis Acute Clostridium difficile infection Acute ~01/23/17 EKG abnormality Acute GI bleed Acute Generalized weakness Acute Low back pain Acute
[2017-06-20] MEDS: traZODone 50 MG TAB PO SCH (20:22)
[2017-06-20] MEDS: TEMAZEPAM 15 MG CAP PO PRN (21:12)
[2017-06-21] MEDS: ONDANSETRON DISINTEGRATING 4 MG TAB PO PRN (01:42)
[2017-06-21] MEDS: LORazepam 0.5 MG TAB PO PRN ×2 (06:21→22:02)
[2017-06-21] MEDS: GUAIFENESIN/DM 10 ML UDCUP PO PRN ×2 (06:21→22:02)
[2017-06-21] MEDS: VANCOMYCIN 125 MG/2.5 ML UDL PO SCH ×4 (06:22→21:41)
[2017-06-21] MEDS ORDERED: POTASSIUM CL 10 MEQ TAB PO ONE (07:24)
[2017-06-21] MEDS: PANTOPRAZOLE SODIUM 40 MG TAB PO SCH ×2 (09:09→21:41)
[2017-06-21] MEDS: LABETALOL HCL 100 MG TAB PO SCH ×2 (09:09→21:41)
[2017-06-21] MEDS: CHOLESTYRAMINE/SUCROSE 4 GM PKT PO SCH ×2 (09:11→21:41)
[2017-06-21] MEDS: ENOXAPARIN 40 MG/0.4 ML SYR SC SCH (09:11)
--- NOTE | 2017-06-21 11:56 | PCMIDPN ---
Assessment/Plan: Assessment/Plan: * Multifocal pneumonia in the setting of influenza B: Completed course of antibiotic therapy and Tamiflu. Residual cough likely may be related to post viral effect. Continue to observe off antibiotics. * Recurrent C difficile colitis: Still with diarrhea. Suspect this may improve now that off antibacterial agents. Continue oral vancomycin therapy. Anticipate at least 2 weeks of therapy post completion of ceftriaxone. * Influenza B: Status post 5 days of Tamiflu. 06/21/17 11:54 Subjective: Patient complains of persistent cough and diarrhea. Notes 3 loose stools earlier today. Appetite remains decreased. Objective: Vital Signs Temp Pulse Resp BP Pulse Ox 36.9 C 84 15 116/75 96 06/21/17 11:22 06/21/17 11:22 06/21/17 11:22 06/21/17 11:22 06/21/17 11:22 Laboratory Results 06/20/17 06:30 06/21/17 06:10 06/20/17 06/21/17 06/22/17 05:59 05:59 05:59 Intake Total 930 320 Output Total 1000 750 250 Balance -70 -430 -250 Oral vancomycin # 12 Status post Tamiflu and ceftriaxone - Physical Exam General Appearance: alert, no apparent distress EENT: No scleral icterus, No thrush Respiratory: lungs clear, other (Episodic cough present), No respiratory distress Cardiac/Chest: regular rate, rhythm Abdomen: non-tender, No distended - Line/s LUE PICC Lines: No drainage, No erythema ICD10 Worksheet Patient Problems: Problems Problem Status Onset Right sided weakness Acute Adult failure to thrive Acute Alcohol abuse Acute Alcohol intoxication Acute Alcohol withdrawal Acute Alcoholic hepatitis Acute Clostridium difficile infection Acute ~01/23/17 EKG abnormality Acute GI bleed Acute Generalized weakness Acute Low back pain Acute
[2017-06-21] MEDS: ACETAMINOPHEN 325 MG TAB PO PRN (14:23)
--- NOTE | 2017-06-21 14:57 | ASMTCMCOM ---
CM Note CM Note Notes: 06/21/2017 Case Management Note Faxed updates to [facility]. [facility] has accepted pt once stools are more formed. Case management d/c poc: to [facility] for 30 day stay. Case Management to follow. Date Signed: 06/21/2017 02:20 PM Electronically Signed By:Norma Flannery RN
--- NOTE | 2017-06-21 16:32 | ASMTLACE ---
KATELYN Acuity / Level of Answers: Yes Care: Did the patient have an inpatient admission? Comorbidities - select Answers: Cerebrovascular disease all that apply (CVA, TIA, aneurysms, vasc ular dementia) Other Notes: HTN, Hyperlipidemia # of Emergency department Answers: 1-2 visits in the last 6 months Social determinants Answers: History of substance abuse (ETOH, street drugs, prescription drugs, etc.) Homelessness (street, detention) Lack of community resources and/or lack of social support (no pcp, lives alone, transportation, jose d) Score: 16 Date Signed: 06/21/2017 04:31 PM Electronically Signed By:Norma Flannery RN
--- NOTE | 2017-06-21 17:54 | HOSPPROG ---
Hospitalist Progress Note Assessment/Plan: * Post-influenza PNA with septic shock -was in ICU on [facility] - BP now stable -IV ceftriaxone - complete * Acute respiratory failure -was on 9L - now wean down to 2L * Cdiff colitis -PO vanco - continue 14 days post last dose ceftriaxone * Influenza B -s/p tamiflu * Right sided weakness - non-organic -neuro exam non-consistent -extensive MRI imaging unremarkable Dispo - accepted to SNF once stools are formed Subjective: Stools still loose. 6 stools in last 24 hours Objective: Vital Signs Temp Pulse Resp BP Pulse Ox 36.9 C 84 15 116/75 96 06/21/17 11:22 06/21/17 11:22 06/21/17 11:22 06/21/17 11:22 06/21/17 11:22 Laboratory Results 06/20/17 06:30 06/21/17 06:10 06/20/17 06/21/17 06/22/17 05:59 05:59 05:59 Intake Total 930 320 Output Total 1000 750 400 Balance -70 -430 -400 PT 13.9 SEC (12.0-15.0) 06/08/17 06:40 INR 1.05 (0.83-1.16) 06/08/17 06:40 - Physical Exam Constitutional: no apparent distress, appears nourished, not in pain Cardiovascular: regular rate and rhythym, no murmur, rub, or gallop Respiratory: no respiratory distress, no rales or rhonchi, clear to auscultation Gastrointestinal: normoactive bowel sounds, soft, non-tender abdomen, no palpable masses Skin: no rashes or abrasions, no fluctuance, no induration Neurologic: AAOx3, sensation intact bilaterally Psychiatric: interacting appropriately, not anxious, not encephalopathic, thought process linear ICD10 Worksheet Patient Problems: Problems Problem Status Onset Right sided weakness Acute Adult failure to thrive Acute Alcohol abuse Acute Alcohol intoxication Acute Alcohol withdrawal Acute Alcoholic hepatitis Acute Clostridium difficile infection Acute ~01/23/17 EKG abnormality Acute GI bleed Acute Generalized weakness Acute Low back pain Acute
[2017-06-21] MEDS: traZODone 50 MG TAB PO SCH (21:41)
[2017-06-21] MEDS: TEMAZEPAM 15 MG CAP PO PRN (22:02)
[2017-06-22] MEDS: ACETAMINOPHEN 325 MG TAB PO PRN (03:43)
[2017-06-22] MEDS: VANCOMYCIN 125 MG/2.5 ML UDL PO SCH ×4 (05:24→21:50)
[2017-06-22] MEDS: ENOXAPARIN 40 MG/0.4 ML SYR SC SCH (09:39)
[2017-06-22] MEDS: CHOLESTYRAMINE/SUCROSE 4 GM PKT PO SCH ×2 (09:40→21:48)
[2017-06-22] MEDS: LABETALOL HCL 100 MG TAB PO SCH ×2 (09:40→21:49)
[2017-06-22] MEDS: PANTOPRAZOLE SODIUM 40 MG TAB PO SCH ×2 (09:40→21:49)
[2017-06-22] MEDS: LORazepam 0.5 MG TAB PO PRN ×2 (10:38→22:29)
[2017-06-22] MEDS: GUAIFENESIN/DM 10 ML UDCUP PO PRN ×2 (10:38→22:28)
--- NOTE | 2017-06-22 10:57 | HOSPPROG ---
Hospitalist Progress Note Assessment/Plan: 57y male presents with weakness. First encounter, chart reviewed. D/W CM. * Post-influenza PNA with septic shock -was in ICU on [facility] - BP now stable -IV ceftriaxone - complete * Acute respiratory failure -was on 9L - now wean down to 2L * Cdiff colitis -PO vanco - continue 14 days post last dose ceftriaxone still having diarrhea, no pain * Influenza B -s/p tamiflu * Right sided weakness - non-organic -neuro exam non-consistent -extensive MRI imaging unremarkable Dispo - accepted to SNF once stools are formed Subjective: Feeling better. Still having diarrhea. No other complaints. Objective: Vital Signs Temp Pulse Resp BP Pulse Ox 36.7 C 80 18 116/74 90 L 06/22/17 08:00 06/22/17 09:40 06/22/17 08:00 06/22/17 09:40 06/22/17 08:00 Laboratory Results 06/20/17 06:30 06/22/17 05:27 06/21/17 06/22/17 06/23/17 05:59 05:59 05:59 Intake Total 320 500 Output Total 750 400 Balance -430 100 PT 13.9 SEC (12.0-15.0) 06/08/17 06:40 INR 1.05 (0.83-1.16) 06/08/17 06:40 - Physical Exam Constitutional: no apparent distress, appears nourished, not in pain Eyes: PERRL, anicteric sclera, EOMI Ears, Nose, Mouth, Throat: moist mucous membranes, hearing normal, ears appear normal Cardiovascular: regular rate and rhythym, No JVD, No edema Respiratory: no respiratory distress, no rales or rhonchi, reduced air movement Gastrointestinal: normoactive bowel sounds, No tenderness, No ascites Skin: warm, normal color, No mottled Musculoskeletal: normal joint ROM, no joint effusions, generalized weakness Neurologic: AAOx3 Psychiatric: not anxious, not encephalopathic, poor insight ICD10 Worksheet Patient Problems: Problems Problem Status Onset Alcohol withdrawal Acute GI bleed Acute Right sided weakness Acute Low back pain Acute Adult failure to thrive Acute Clostridium difficile infection Acute ~01/23/17 Generalized weakness Acute EKG abnormality Acute Alcohol abuse Acute Alcohol intoxication Acute Alcoholic hepatitis Acute
[2017-06-22] MEDS: ONDANSETRON DISINTEGRATING 4 MG TAB PO PRN (17:14)
--- NOTE | 2017-06-22 17:36 | PCMIDPN ---
Assessment/Plan: Assessment: Pneumonia right-sided following influenza B. Completed ceftriaxone monotherapy. Appears to be clinically improved from that sense. Continues to have significant loose stools. On treatment for C difficile colitis as well. Will continue oral vancomycin and follow clinical course.. Plan: 1. Continue p.o. vancomycin. Anticipate 2 weeks total course. 2. Follow stool frequency and consistency. Subjective: Patient resting in his hospital bed. Continues to report ongoing loose stools. From a respiratory standpoint he is breathing better. No fevers or chills. Objective: P.o. vancomycin # 13 Vital Signs Temp Pulse Resp BP Pulse Ox 37.1 C 89 16 144/81 H 95 06/22/17 15:24 06/22/17 15:24 06/22/17 15:24 06/22/17 15:24 06/22/17 15:24 Laboratory Results 06/20/17 06:30 06/22/17 05:27 06/21/17 06/22/17 06/23/17 05:59 05:59 05:59 Intake Total 320 500 450 Output Total 750 400 600 Balance -430 100 -150 - Physical Exam General Appearance: WD/WN, alert, no apparent distress, non-toxic Respiratory: lungs clear, normal breath sounds, No respiratory distress Cardiac/Chest: regular rate, rhythm, No tachycardia Extremities: non-tender, normal inspection Abdomen: non-tender, soft Neuro/Psych: alert, normal mood/affect, oriented x 3 ICD10 Worksheet Patient Problems: Problems Problem Status Onset Right sided weakness Acute Adult failure to thrive Acute Alcohol abuse Acute Alcohol intoxication Acute Alcohol withdrawal Acute Alcoholic hepatitis Acute Clostridium difficile infection Acute ~01/23/17 EKG abnormality Acute GI bleed Acute Generalized weakness Acute Low back pain Acute
[2017-06-22] MEDS: ONDANSETRON 4 MG/2 ML VIAL IVP PRN (18:13)
[2017-06-22] MEDS: TEMAZEPAM 15 MG CAP PO PRN (21:49)
[2017-06-22] MEDS: traZODone 50 MG TAB PO SCH (21:49)
[2017-06-22] MEDS: BENZONATATE 100 MG CAP PO PRN (22:29)
[2017-06-23] MEDS: VANCOMYCIN 125 MG/2.5 ML UDL PO SCH ×4 (05:54→20:17)
[2017-06-23] MEDS: ONDANSETRON 4 MG/2 ML VIAL IVP PRN ×2 (06:01→17:00)
--- NOTE | 2017-06-23 08:31 | HOSPPROG ---
Hospitalist Progress Note Assessment/Plan: 57y male presents with weakness. First encounter, chart reviewed. D/W CM. Reviewed his care w Dr Mena. * Post-influenza PNA right sided with septic shock -was in ICU on [facility] - BP now stable -IV ceftriaxone - complete * Acute respiratory failure -was on 9L - now wean down to 2L * Cdiff colitis -PO vanco - continue 14 days post last dose ceftriaxone - having more formed stools today * Influenza B -s/p tamiflu * Right sided weakness - non-organic -neuro exam non-consistent -extensive MRI imaging unremarkable *anemia -due to acute illness -will need f/u *plan; dc to [place] Subjective: Don is feeling better today. Objective: Vital Signs Temp Pulse Resp BP Pulse Ox 36.6 C 85 16 120/80 95 06/23/17 08:00 06/23/17 08:00 06/23/17 08:00 06/23/17 08:00 06/23/17 08:00 Laboratory Results 06/20/17 06:30 06/22/17 05:27 06/22/17 06/23/17 06/24/17 05:59 05:59 05:59 Intake Total 500 450 Output Total 400 800 Balance 100 -350 PT 13.9 SEC (12.0-15.0) 06/08/17 06:40 INR 1.05 (0.83-1.16) 06/08/17 06:40 - Physical Exam Constitutional: no apparent distress, appears nourished, not in pain Eyes: PERRL Ears, Nose, Mouth, Throat: hearing normal Cardiovascular: regular rate and rhythym Respiratory: no respiratory distress Skin: warm, No normal color (pale) Neurologic: AAOx3 Psychiatric: interacting appropriately ICD10 Worksheet Patient Problems: Problems Problem Status Onset Right sided weakness Acute Adult failure to thrive Acute Alcohol abuse Acute Alcohol intoxication Acute Alcohol withdrawal Acute Alcoholic hepatitis Acute Clostridium difficile infection Acute ~01/23/17 EKG abnormality Acute GI bleed Acute Generalized weakness Acute Low back pain Acute
[2017-06-23] MEDS: CHOLESTYRAMINE/SUCROSE 4 GM PKT PO SCH ×2 (09:25→20:18)
[2017-06-23] MEDS: LABETALOL HCL 100 MG TAB PO SCH ×2 (09:25→20:16)
[2017-06-23] MEDS: ENOXAPARIN 40 MG/0.4 ML SYR SC SCH (09:26)
[2017-06-23] MEDS: PANTOPRAZOLE SODIUM 40 MG TAB PO SCH ×2 (09:26→20:15)
[2017-06-23] MEDS ORDERED: HEPATITIS B VIRUS VACCINE-PF 20 MCG/ML INJ IM ONE (09:40)
--- NOTE | 2017-06-23 09:44 | PCMIDPN ---
Assessment/Plan: 1. Multi lobar pneumonia in the setting of influenza B: Status post 5 days of ceftriaxone. Status post 5 days of Tamiflu. 2. C difficile colitis: Needs to continue oral vancomycin for another 10 days, to complete 2 weeks after Ceftriaxone ended. Stop date July 03. 3. Homelessness: He is immune to hepatitis a, but not hepatitis-B. Booster vaccine given today. At [place], he will need hepatitis B surface antibody obtained in 1 month, and if not immune, proceed with 2nd vaccine, and 3rd in December. Over 25 mins spent with pt. Subjective: Patient states he is having mostly formed stools now. Denies abdominal pain, nausea or vomiting. Objective: Vancomycin 125 p. O. Four times daily day 08/19. ital Signs Temp Pulse Resp BP Pulse Ox 36.6 C 85 16 120/80 95 06/23/17 08:00 06/23/17 09:25 06/23/17 08:00 06/23/17 09:25 06/23/17 08:00 Laboratory Results 06/20/17 06:30 06/22/17 05:27 06/22/17 06/23/17 06/24/17 05:59 05:59 05:59 Intake Total 500 450 Output Total 400 800 Balance 100 -350 - Physical Exam General Appearance: alert, no apparent distress EENT: pharynx normal, No thrush Extremities: other (PICC line left upper extremity looks fine) Abdomen: soft Skin: No rash ICD10 Worksheet Patient Problems: Problems Problem Status Onset Right sided weakness Acute Adult failure to thrive Acute Alcohol abuse Acute Alcohol intoxication Acute Alcohol withdrawal Acute Alcoholic hepatitis Acute Clostridium difficile infection Acute ~01/23/17 EKG abnormality Acute GI bleed Acute Generalized weakness Acute Low back pain Acute
[2017-06-23] MEDS: LORazepam 0.5 MG TAB PO PRN ×2 (09:56→20:16)
[2017-06-23] MEDS: GUAIFENESIN/DM 10 ML UDCUP PO PRN ×2 (09:56→20:17)
--- NOTE | 2017-06-23 10:21 | PDIAF ---
- Diagnosis Diagnosis: multilobar pna, influenza, c diff colits Code Status: Full Code - Medication Management Discharge Medications: Medications to Continue on Transfer Cholestyramine (with Sugar) [Cholestyramine Packet] 4 gm PO BID 06/03/17 [Last Taken 06/07/17 21:00] Acetaminophen [Tylenol 325mg (*)] 650 mg PO Q4HRS PRN tab 06/04/17 [Last Taken Unknown] Aspirin EC [Aspirin EC 81 mg (*)] 81 mg PO DAILY #30 tab 06/04/17 [Last Taken Unknown] Labetalol HCl [Trandate 100 mg (*)] 50 mg PO BID PRN #30 tab 06/04/17 [Last Taken 06/07/17 21:00] Pantoprazole Sodium [Protonix 40mg (*)] 40 mg PO BID #60 tab 06/04/17 [Last Taken Unknown] traZODone [traZODONE 50MG (*)] 50 mg PO HS 06/08/17 [Last Taken 06/07/17] Albuterol [Proventil Neb] 3 ml IH Q2HRS PRN deyvial 06/23/17 [Last Taken Unknown] Benzocaine/Menthol 15/4 [Cepacol Lozenge] 1 ea PO Q2 PRN lozenge 06/23/17 [ Last Taken Unknown] Benzonatate [Tessalon Pearles] 200 mg PO TID PRN cap 06/23/17 [Last Taken Unknown] Cholestyramine/Sucrose [Questran] 4 gm PO BID pkt 06/23/17 [Last Taken Unknown] LORazepam [Ativan (*)] 0.5 mg PO BID PRN tab 06/23/17 [Last Taken Unknown] Temazepam [Restoril 15 MG (*)] 15 mg PO HS PRN cap 06/23/17 [Last Taken Unknown ] Vancomycin [Vancocin Oral Liquid] 125 mg PO QID 10 Days udl 06/23/17 [Last Taken Unknown] guaiFENesin/DEXTROMETHORPHAN [Robitussin Dm Oral Liquid (*)] 10 ml PO Q4HRS PRN ml 06/23/17 [Last Taken Unknown] Pot Runner Antibiotics: Vancomycin 125 mg qid Pot Runner Antibiotic Stop Date: 07/03/17 Discharge Medications: Refer to the Discharge Home Medication list for PRN reason. PICC Care - Routine: N/A - Orders Services needed: Physical Therapy, Occupational Therapy Isolation Type: CDIFF Isolation, Droplet Isolation Oxygen: 1-2 liters Diet Recommendation: no restrictions on diet Diet Texture: Regular Texture Diet - Labs/Radiology BMP Date: 06/27/17 CBC w/diff Date: 06/27/17 - Follow Up Care Current Providers and Referrals: Talya Burt MD [Medical Doctor] - follow up in 10 days Patient,NotPresent [Unknown] - As per Instructions
[2017-06-23] MEDS: TEMAZEPAM 15 MG CAP PO PRN (20:16)
[2017-06-23] MEDS: traZODone 50 MG TAB PO SCH (20:17)
[2017-06-23] MEDS: ONDANSETRON DISINTEGRATING 4 MG TAB PO PRN (20:18)
[2017-06-24] MEDS: VANCOMYCIN 125 MG/2.5 ML UDL PO SCH ×4 (05:43→19:59)
[2017-06-24] MEDS: ACETAMINOPHEN 325 MG TAB PO PRN (05:48)
[2017-06-24] MEDS: PANTOPRAZOLE SODIUM 40 MG TAB PO SCH ×2 (07:30→19:59)
[2017-06-24] MEDS: ENOXAPARIN 40 MG/0.4 ML SYR SC SCH (07:31)
[2017-06-24] MEDS: LABETALOL HCL 100 MG TAB PO SCH ×2 (07:32→19:59)
[2017-06-24] MEDS: CHOLESTYRAMINE/SUCROSE 4 GM PKT PO SCH ×2 (07:34→19:57)
[2017-06-24] MEDS: GUAIFENESIN/DM 10 ML UDCUP PO PRN ×2 (07:38→19:59)
[2017-06-24] MEDS: LORazepam 0.5 MG TAB PO PRN ×2 (07:39→19:59)
--- NOTE | 2017-06-24 13:00 | HOSPPROG ---
Hospitalist Progress Note Assessment/Plan: 57y male presents with weakness. First encounter, chart reviewed. D/W CM. Reviewed his care w Dr Mena. * Post-influenza PNA right sided with septic shock -was in ICU on [facility] - BP now stable -IV ceftriaxone - complete * Acute respiratory failure -was on 9L - now wean down to 2L * Cdiff colitis -PO vanco - continue 14 days post last dose ceftriaxone -had 2 'pudding' type stools today * Influenza B -s/p tamiflu - this is why he is on respiratory precautions -this will not be needed at SNF * Right sided weakness - non-organic -neuro exam non-consistent -extensive MRI imaging unremarkable *anemia -due to acute illness -will need f/u *plan; dc pending, needs a private room due to C diff, but not for any respiratory issues, staff needs to do good hand washing. Awaiting placement at [place]. Subjective: Don is eating and drinking well. Objective: Vital Signs Temp Pulse Resp BP Pulse Ox 36.6 C 82 18 113/78 96 06/24/17 08:00 06/24/17 08:00 06/24/17 08:00 06/24/17 08:00 06/24/17 08:00 Laboratory Results 06/20/17 06:30 06/22/17 05:27 06/23/17 06/24/17 06/25/17 05:59 05:59 05:59 Intake Total 450 Output Total 800 1500 500 Balance -350 -1500 -500 PT 13.9 SEC (12.0-15.0) 06/08/17 06:40 INR 1.05 (0.83-1.16) 06/08/17 06:40 - Physical Exam Constitutional: no apparent distress, appears nourished, not in pain Eyes: PERRL Ears, Nose, Mouth, Throat: hearing normal Cardiovascular: regular rate and rhythym Respiratory: no respiratory distress Skin: warm Musculoskeletal: generalized weakness Neurologic: AAOx3 Psychiatric: interacting appropriately ICD10 Worksheet Patient Problems: Problems Problem Status Onset Right sided weakness Acute Adult failure to thrive Acute Alcohol abuse Acute Alcohol intoxication Acute Alcohol withdrawal Acute Alcoholic hepatitis Acute Clostridium difficile infection Acute ~01/23/17 EKG abnormality Acute GI bleed Acute Generalized weakness Acute Low back pain Acute
--- NOTE | 2017-06-24 17:05 | ASMTCMCOM ---
CM Note CM Note Notes: Spoke w/DOLLY PUSHER and ID [facility] not prepared to take pt on precautions, they do not have a private room. Pt only on droplet precautions b/c still in hospital but per [facility]US[facility], will not need at SNF. Pt also on precautions for Cdiff and stools not formed yet, which [facility] also would like, dc date unclear, updates sent to [facility]. DC Plan: [facility] Date Signed: 06/24/2017 05:04 PM Electronically Signed By:Liz Thrasher RN
[2017-06-24] MEDS: traZODone 50 MG TAB PO SCH (19:59)
[2017-06-24] MEDS: ONDANSETRON 4 MG/2 ML VIAL IVP PRN (19:59)
[2017-06-24] MEDS: TEMAZEPAM 15 MG CAP PO PRN (19:59)
[2017-06-25] MEDS: VANCOMYCIN 125 MG/2.5 ML UDL PO SCH ×4 (06:02→20:33)
[2017-06-25] MEDS: LABETALOL HCL 100 MG TAB PO SCH ×2 (07:25→20:33)
[2017-06-25] MEDS: GUAIFENESIN/DM 10 ML UDCUP PO PRN (07:27)
[2017-06-25] MEDS: LORazepam 0.5 MG TAB PO PRN ×2 (07:27→20:35)
[2017-06-25] MEDS: PANTOPRAZOLE SODIUM 40 MG TAB PO SCH ×2 (07:27→20:33)
[2017-06-25] MEDS: CHOLESTYRAMINE/SUCROSE 4 GM PKT PO SCH ×2 (07:28→20:33)
[2017-06-25] MEDS: ENOXAPARIN 40 MG/0.4 ML SYR SC SCH (07:29)
--- NOTE | 2017-06-25 09:26 | HOSPPROG ---
Hospitalist Progress Note Assessment/Plan: 57y male presents with weakness. First encounter, chart reviewed. D/W CM. Reviewed his care w Dr Mena. * Post-influenza PNA right sided with septic shock -was in ICU on pressors - BP now stable -IV ceftriaxone - complete * Acute respiratory failure -on 1 liter, lungs are clear * Cdiff colitis -PO vanco - continue 14 days post last dose ceftriaxone -had 2 'pudding' type stools today * Influenza B - s/p tamiflu - this is why he is on respiratory precautions -this will not be needed at [facility] * Right sided weakness - non-organic -neuro exam non-consistent -extensive MRI imaging unremarkable *anemia -due to acute illness -will need f/u *plan; dc pending, needs a private room due to C diff, but not for any respiratory issues, staff needs to do good hand washing. Awaiting placement at [place]. Infectious disease doctor will talk to [facility] [facility] if there are any concerns. He does not need to be in isolation, but just a private room. Subjective: Don is feeling better. Objective: Vital Signs Temp Pulse Resp BP Pulse Ox 36.6 C 84 16 113/79 96 06/25/17 08:53 06/25/17 08:53 06/25/17 08:53 06/25/17 08:53 06/25/17 08:53 Laboratory Results 06/20/17 06:30 06/22/17 05:27 06/24/17 06/25/17 06/26/17 05:59 05:59 05:59 Output Total 1500 1650 Balance -1500 -1650 PT 13.9 SEC (12.0-15.0) 06/08/17 06:40 INR 1.05 (0.83-1.16) 06/08/17 06:40 - Physical Exam Constitutional: no apparent distress, appears nourished Eyes: PERRL Ears, Nose, Mouth, Throat: hearing normal Cardiovascular: regular rate and rhythym Respiratory: no respiratory distress, clear to auscultation Skin: warm Musculoskeletal: generalized weakness Neurologic: AAOx3 Psychiatric: interacting appropriately ICD10 Worksheet Patient Problems: Problems Problem Status Onset Right sided weakness Acute Adult failure to thrive Acute Alcohol abuse Acute Alcohol intoxication Acute Alcohol withdrawal Acute Alcoholic hepatitis Acute Clostridium difficile infection Acute ~01/23/17 EKG abnormality Acute GI bleed Acute Generalized weakness Acute Low back pain Acute
--- NOTE | 2017-06-25 12:45 | PDIAF ---
- Diagnosis Diagnosis: multilobar pna, influenza, c diff colits Code Status: Full Code - Medication Management Discharge Medications: Medications to Continue on Transfer Cholestyramine (with Sugar) [Cholestyramine Packet] 4 gm PO BID 06/03/17 [Last Taken 06/07/17 21:00] Acetaminophen [Tylenol 325mg (*)] 650 mg PO Q4HRS PRN tab 06/04/17 [Last Taken Unknown] Aspirin EC [Aspirin EC 81 mg (*)] 81 mg PO DAILY #30 tab 06/04/17 [Last Taken Unknown] Labetalol HCl [Trandate 100 mg (*)] 50 mg PO BID PRN #30 tab 06/04/17 [Last Taken 06/07/17 21:00] Pantoprazole Sodium [Protonix 40mg (*)] 40 mg PO BID #60 tab 06/04/17 [Last Taken Unknown] traZODone [traZODONE 50MG (*)] 50 mg PO HS 06/08/17 [Last Taken 06/07/17] Albuterol [Proventil Neb] 3 ml IH Q2HRS PRN deyvial 06/23/17 [Last Taken Unknown] Benzocaine/Menthol 15/4 [Cepacol Lozenge] 1 ea PO Q2 PRN lozenge 06/23/17 [ Last Taken Unknown] Benzonatate [Tessalon Pearles] 200 mg PO TID PRN cap 06/23/17 [Last Taken Unknown] Cholestyramine/Sucrose [Questran] 4 gm PO BID pkt 06/23/17 [Last Taken Unknown] LORazepam [Ativan (*)] 0.5 mg PO BID PRN tab 06/23/17 [Last Taken Unknown] Temazepam [Restoril 15 MG (*)] 15 mg PO HS PRN cap 06/23/17 [Last Taken Unknown ] Vancomycin [Vancocin Oral Liquid] 125 mg PO QID 10 Days udl 06/23/17 [Last Taken Unknown] Long-Term Antibiotics: Vancomycin 125 mg qid Disaster Recovery Consultant Antibiotic Stop Date: 07/03/17 Discharge Medications: Refer to the Discharge Home Medication list for PRN reason. PICC Care - Routine: N/A - Orders Services needed: Physical Therapy, Occupational Therapy Isolation Type: CDIFF Isolation, Droplet Isolation Oxygen: 1-2 liters Diet Recommendation: no restrictions on diet Diet Texture: Regular Texture Diet Additional: patient needs private room, good hand washing - Labs/Radiology BMP Date: 06/27/17 CBC w/diff Date: 06/27/17 - Follow Up Care Current Providers and Referrals: Talya Burt MD [Medical Doctor] - follow up in 10 days Patient,NotPresent [Unknown] - As per Instructions
--- NOTE | 2017-06-25 13:15 | GDS ---
[f rep st] DISCHARGE SUMMARY DISCHARGE DIAGNOSES: 1. Post-influenza pneumonia on the right side with septic shock. 2. Acute respiratory failure. 3. Clostridium difficile colitis. 4. Influenza B. 5. Right-sided weakness. 6. Anemia. CONSULTATIONS: 1. Dr. Jayson Everett. 2. Dr. Talya Burt. HISTORY OF PRESENT ILLNESS: Briefly, the patient is a 57-year-old gentleman who is homeless. He had 4 ER visits and 3 admission since May 30. On the , he was admitted for possible TIA versus stroke. That was worked up to be negative. He eventually was evaluated with a respiratory panel, which was positive for influenza B. He also had been having diarrhea which was Clostridium difficile positive. He was admitted, placed in the ICU, and treated for the flu and pneumonia. He required pressors, and slowly improved throughout his stay. Today, he is stable. He will be discharged to a [facility] facility for close monitoring. HOSPITAL COURSE PER PROBLEM: 1. Post-influenza pneumonia on the right side with septic shock. He had been on pressors. His blood pressure was stable. He was treated with IV antibiotics. 2. Acute respiratory failure. He was up to 9 L of oxygen. He is on room air today. His lungs are clear to auscultation. 3. Clostridium difficile colitis. He has had 2 semi-formed stools today and yesterday. He has had no liquid stools. Will continue vancomycin, with the stop date on July 03. 4. Influenza B, status post treatment. 5. Right-sided weakness. He has had extensive MRI imaging that was unremarkable. 6. Anemia. Will need further followup in the outpatient setting. DISCHARGE CONDITION: Stable. Blood pressure is 113/79, heart rate is 84, respiratory rate is 16, O2 sats on 1 L are 96%, temperature is 36.6 Celsius. MEDICATIONS AT DISCHARGE: Please see the EMR. DISCHARGE INSTRUCTIONS: 1. To continue the vancomycin as instructed. The staff at the nursing care facility needs to do good handwashing. 2. To follow up with Dr. Talya Burt in 10 days. 3. If he develops fever, chills, chest pain, or shortness of breath, return to the ER. Greater than 30 minutes discharging and coordinating his care. /[id number]/MODL MTDD
--- NOTE | 2017-06-25 14:30 | ASMTCMCOM ---
CM Note CM Note Notes: Patient had been accepted to [facility] pending medicaid. Discharge written. Unable to accommodate request for private rooms (they have none per Administator Jayde) so discharge canceled [facility] had been [facility] Medicine aware. Plan is to watch overnight to ensure stools are formed and not liquid and plan to dc to semi-private tomorrow as long as asymptomatic. CM to follow. Date Signed: 06/25/2017 02:29 PM Electronically Signed By:Ayah Jensen RN
[2017-06-25] MEDS: traZODone 50 MG TAB PO SCH (20:33)
[2017-06-25] MEDS: TEMAZEPAM 15 MG CAP PO PRN (20:34)
[2017-06-25] MEDS: BENZONATATE 100 MG CAP PO PRN (20:35)
[2017-06-25] MEDS: ONDANSETRON DISINTEGRATING 4 MG TAB PO PRN (21:04)
[2017-06-26] MEDS: VANCOMYCIN 125 MG/2.5 ML UDL PO SCH ×4 (06:20→20:33)
[2017-06-26] MEDS: LABETALOL HCL 100 MG TAB PO SCH ×2 (08:54→20:30)
[2017-06-26] MEDS: PANTOPRAZOLE SODIUM 40 MG TAB PO SCH ×2 (08:55→20:30)
[2017-06-26] MEDS: ENOXAPARIN 40 MG/0.4 ML SYR SC SCH (08:56)
[2017-06-26] MEDS: CHOLESTYRAMINE/SUCROSE 4 GM PKT PO SCH ×2 (08:56→21:26)
[2017-06-26] MEDS: LORazepam 0.5 MG TAB PO PRN ×2 (08:56→20:37)
--- NOTE | 2017-06-26 09:27 | HOSPPROG ---
Hospitalist Progress Note Assessment/Plan: 57y male presents with weakness. First encounter, chart reviewed. D/W * Post-influenza PNA right sided with septic shock -was in ICU on pressors - BP now stable -IV ceftriaxone - complete * Acute respiratory failure -on room air * Cdiff colitis -PO vanco - continue 14 days post last dose ceftriaxone -has 'pudding' type stools today * Influenza B - s/p tamiflu - this is why he is on respiratory precautions -this will not be needed at [facility] * Right sided weakness - non-organic -neuro exam non-consistent -extensive MRI imaging unremarkable *anemia -due to acute illness -will need f/u *plan; dc today, c diff resolving, flu resolved Subjective: Don is feeling fine, no complaints. Objective: Vital Signs Temp Pulse Resp BP Pulse Ox 36.6 C 86 16 112/72 98 06/26/17 08:00 06/26/17 08:54 06/26/17 08:00 06/26/17 08:54 06/26/17 08:00 Laboratory Results 06/20/17 06:30 06/22/17 05:27 06/25/17 06/26/17 06/27/17 05:59 05:59 05:59 Intake Total 400 Output Total 1650 Balance -1650 400 PT 13.9 SEC (12.0-15.0) 06/08/17 06:40 INR 1.05 (0.83-1.16) 06/08/17 06:40 - Physical Exam Constitutional: no apparent distress, appears nourished, not in pain Eyes: PERRL Ears, Nose, Mouth, Throat: hearing normal Cardiovascular: regular rate and rhythym Respiratory: no respiratory distress Skin: warm Musculoskeletal: generalized weakness Neurologic: AAOx3 Psychiatric: interacting appropriately ICD10 Worksheet Patient Problems: Problems Problem Status Onset Right sided weakness Acute Adult failure to thrive Acute Alcohol abuse Acute Alcohol intoxication Acute Alcohol withdrawal Acute Alcoholic hepatitis Acute Clostridium difficile infection Acute ~01/23/17 EKG abnormality Acute GI bleed Acute Generalized weakness Acute Low back pain Acute
--- NOTE | 2017-06-26 09:30 | PDIAF ---
- Diagnosis Diagnosis: multilobar pna, influenza, c diff colits Code Status: Full Code - Medication Management Discharge Medications: Medications to Continue on Transfer Cholestyramine (with Sugar) [Cholestyramine Packet] 4 gm PO BID 06/03/17 [Last Taken 06/07/17 21:00] Acetaminophen [Tylenol 325mg (*)] 650 mg PO Q4HRS PRN tab 06/04/17 [Last Taken Unknown] Aspirin EC [Aspirin EC 81 mg (*)] 81 mg PO DAILY #30 tab 06/04/17 [Last Taken Unknown] Labetalol HCl [Trandate 100 mg (*)] 50 mg PO BID PRN #30 tab 06/04/17 [Last Taken 06/07/17 21:00] Pantoprazole Sodium [Protonix 40mg (*)] 40 mg PO BID #60 tab 06/04/17 [Last Taken Unknown] traZODone [traZODONE 50MG (*)] 50 mg PO HS 06/08/17 [Last Taken 06/07/17] Albuterol [Proventil Neb] 3 ml IH Q2HRS PRN deyvial 06/23/17 [Last Taken Unknown] Benzocaine/Menthol 15/4 [Cepacol Lozenge] 1 ea PO Q2 PRN lozenge 06/23/17 [ Last Taken Unknown] Benzonatate [Tessalon Pearles] 200 mg PO TID PRN cap 06/23/17 [Last Taken Unknown] Cholestyramine/Sucrose [Questran] 4 gm PO BID pkt 06/23/17 [Last Taken Unknown] LORazepam [Ativan (*)] 0.5 mg PO BID PRN tab 06/23/17 [Last Taken Unknown] Temazepam [Restoril 15 MG (*)] 15 mg PO HS PRN cap 06/23/17 [Last Taken Unknown ] Vancomycin [Vancocin Oral Liquid] 125 mg PO QID 10 Days udl 06/23/17 [Last Taken Unknown] Correction Antibiotics: Vancomycin 125 mg qid Client Care Specialist Antibiotic Stop Date: 07/03/17 Discharge Medications: Refer to the Discharge Home Medication list for PRN reason. PICC Care - Routine: N/A - Orders Services needed: Physical Therapy, Occupational Therapy Isolation Type: CDIFF Isolation, Droplet Isolation Oxygen: 1-2 liters Diet Recommendation: no restrictions on diet Diet Texture: Regular Texture Diet Additional: good hand washing - Labs/Radiology BMP Date: 06/27/17 CBC w/diff Date: 06/27/17 - Follow Up Care Current Providers and Referrals: Talya Burt MD [Medical Doctor] - follow up in 10 days Patient,NotPresent [Unknown] - As per Instructions
[2017-06-26] MEDS: ONDANSETRON DISINTEGRATING 4 MG TAB PO PRN ×2 (14:13→20:37)
--- NOTE | 2017-06-26 15:06 | ASMTCMCOM ---
CM Note CM Note Notes: Spoke with Christine at [facility] who states she has not received the PASRR from [facility] and cannot call for it today as they are closed for . The d/c will have to be tomorrow. Christine also states she needs the DrKeyur to state in the transfer of care summary patient does not need droplet precautions and/or droplet isolation. If these conditions are met, we can d/c patient to [facility] in the morning. CM will follow. Date Signed: 06/26/2017 03:06 PM Electronically Signed By:Magdalena Solares LCSW
[2017-06-26] MEDS: traZODone 50 MG TAB PO SCH (20:30)
[2017-06-26] MEDS: TEMAZEPAM 15 MG CAP PO PRN (20:30)
[2017-06-26] MEDS: BENZONATATE 100 MG CAP PO PRN (20:30)
[2017-06-27] MEDS: VANCOMYCIN 125 MG/2.5 ML UDL PO SCH ×2 (05:14→12:05)
[2017-06-27 07:31] VITALS: BP 116/67; PULSE 81; RESP 18; TEMP 98; O2SAT 96
[2017-06-27] MEDS: ENOXAPARIN 40 MG/0.4 ML SYR SC SCH (08:58)
[2017-06-27] MEDS: LABETALOL HCL 100 MG TAB PO SCH (08:59)
[2017-06-27] MEDS: CHOLESTYRAMINE/SUCROSE 4 GM PKT PO SCH (09:00)
[2017-06-27] MEDS: PANTOPRAZOLE SODIUM 40 MG TAB PO SCH (09:00)
[2017-06-27] MEDS: ACETAMINOPHEN 325 MG TAB PO PRN (09:10)
[2017-06-27] MEDS: BENZONATATE 100 MG CAP PO PRN (09:10)
[2017-06-27] MEDS: LORazepam 0.5 MG TAB PO PRN (09:10)
--- NOTE | 2017-06-27 11:24 | HOSPPROG ---
Hospitalist Progress Note Assessment/Plan: 57y male presents with weakness. * Post-influenza PNA right sided with septic shock -was in ICU on pressors - BP now stable -IV ceftriaxone - complete * Acute respiratory failure -on room air * Cdiff colitis -PO vanco - continue 14 days post last dose ceftriaxone -formed normal stool today * Influenza B - s/p tamiflu - this is why he is on respiratory precautions -this will not be needed at SNF * Right sided weakness - non-organic -neuro exam non-consistent -extensive MRI imaging unremarkable *anemia -due to acute illness -will need f/u *plan; dc today, no isolation is needed. Good hand washing at the rehab facility Subjective: Don is feeling well, formed stools, breathing well. Objective: Vital Signs Temp Pulse Resp BP Pulse Ox 36.6 C 81 18 116/67 96 06/27/17 07:30 06/27/17 07:30 06/27/17 07:30 06/27/17 07:30 06/27/17 07:30 Laboratory Results 06/20/17 06:30 06/22/17 05:27 06/26/17 06/27/17 06/28/17 05:59 05:59 05:59 Intake Total 400 1250 Output Total 475 Balance 400 775 PT 13.9 SEC (12.0-15.0) 06/08/17 06:40 INR 1.05 (0.83-1.16) 06/08/17 06:40 - Physical Exam Constitutional: no apparent distress, appears nourished, not in pain Eyes: PERRL Ears, Nose, Mouth, Throat: hearing normal Respiratory: no respiratory distress Skin: warm Musculoskeletal: generalized weakness Neurologic: AAOx3 Psychiatric: interacting appropriately ICD10 Worksheet Patient Problems: Problems Problem Status Onset Right sided weakness Acute Adult failure to thrive Acute Alcohol abuse Acute Alcohol intoxication Acute Alcohol withdrawal Acute Alcoholic hepatitis Acute Clostridium difficile infection Acute ~01/23/17 EKG abnormality Acute GI bleed Acute Generalized weakness Acute Low back pain Acute
--- NOTE | 2017-06-27 15:37 | ASDISCHSUM ---
Discharge Information Plan Status:SNF Medically Cleared to Leave:06/26/2017 Discharge Date:06/27/2017 01:45 PM CM D/C Disposition: ADT D/C Disposition:Assisted Facility Projected Discharge Date:06/27/2017 11:00 AM Transportation at D/C: Discharge Delay Reason: Follow-Up Date:06/27/2017 11:00 AM Discharge Slot: Final Diagnosis: Placement Information Referral Type:*Longterm/SNF Referral ID:[id number] Provider Name:[facility] Address 1:[address] [place] [address] Address 2: City:[place] Selection Factors: State:[place] Patient Contact Information Contact Name:RAGINI Relationship: Address: Home Phone: Work Phone: City: [facility] Phone: [facility] Code: Email: Financial Information Financial Class:Medicaid Primary Plan Desc:[place] Primary Plan Number:[id number] Secondary Plan Desc: Secondary Plan Number: Assessment Information [facility] CM Progress Note CM Note CM Note Notes: Pt admitted for weakness, is high utilizer of [facility] w most recent admission being 06/03/17. Pt wants SNF placement, last admission did not qualify he was d[place] [facility] because he was medically stable and OT/PT cleared him. ULTC 100 was done 06/03/17 and by the time the [facility] worker was assigned Monday pt had d/c. Today pt transfer to ICU due to septic shock. Pt may now qualify for SNF, OT/PT/CLIENT EXECUTIVE evals pending for this admission. The ULTC 100 from 06/03/17 was sent again to [facility] and a vm was left for [employer] explaining the situation. Med Data was alerted for the [facility] medicaid luis f. Of note: Last d/c note indicates pt had a meeting for transitional housing 06/05/17, what is the status? CM to follow. D/c plan of care: If therapies rec SNF [facility] would need to evaluate for Medicaid 30 day SNF placement. If therapies clear pt he likely will d/c to the [place] [facility]. Date Signed: 06/09/2017 11:40 AM Electronically Signed By:MUNDO Boothe [facility] CM Progress Note CM Note CM Note Notes: 06/12/2017 Case Management Note Met w/pt to discuss PT recommendations for SNF rehab. Pt in agreement for SNF and agrees to 30 day stay. Case Management referred to multiple facilities near [place]. Pt prefers [facility] or [facility]. Pt refused referral to [facility]. Called [facility] to confirm ULTC 100 process has started. Avril Jefferson is assigned [facility] medical case worker [phone]. She will have until end of work day tomorrow to assess pt. Pt will likely have a Level 1 PASSR. Earliest approval will likely be per [facility]. Case Management d/c poc: to SNF pending ACMI/ULTC 100 process and acceptance at SNF rehab. Case Management to follow. Date Signed: 06/12/2017 10:34 AM Electronically Signed By:Norma Flannery RN [facility] CM Progress Note CM Note CM Note Notes: DIscussed pts case in morning rounds. Pt completed 5 doses of tamiflu for influenza b. CM spoke w/ Jayde at [facility]. [facility] is unable to accept until pt is able to form 3 bowel movements. Updates sent to facilities. CM to follow. Plan: SNF Date Signed: 06/14/2017 02:28 PM Electronically Signed By:CIERRA Willson [facility] Progress Note CM Note CM Note Notes: Pts case discussed in morning rounds. Facilities still reviewing clinical info. CM completed a medicaid pending questionnaire for [facility]. CM to follow. Plan: SNF Date Signed: 06/15/2017 03:07 PM Electronically Signed By:CIERRA Willson [facility] SUMEET Progress Note CM Note CM Note Notes: 06/16/2017 Case Management Note Left vm for Kadeem at [facility] requesting status on application. Jayde to present pt to administration at [facility] however, today pt oxygen needs are to high for [facility]. Pt will need three formed stools before [facility] would consider taking pt. [facility] is not taking patients at this time due to influenza in the facility. Faxed additional referals to all facilities in [facility]. Pt has completed the ULTC 100 process. Case Management to call Avril Jefferson [phone] with placement and she will fax all necessary state paperwork. terminal block assembler medicaid application is in process. Case Management d/c poc: to SNF if accepted vs [place] [facility]. Case Management to continue to follow. Date Signed: 06/16/2017 03:07 PM Electronically Signed By:Norma Flannery RN [facility] CM Progress Note CM Note CM Note Notes: 06/19/2017 Case Management Note Met w/pt this morning. Pt states desire to live at SNF facility for 30 days. Faxed updates to all SNF referral facilities. Spoke w/ Jayde from [facility]. Jayde has a shared room for pt which means he will need to be off all contact precautions. She stated pt needs formed stools to be accepted at her facility. [facility]de requested daily updates and has not agreed to accept pt at this time. Case Management d/c poc: possible SNF if accepted vs. [place] [facility]. Case Management to follow. Date Signed: 06/19/2017 12:06 PM Electronically Signed By:Norma Flannery RN [facility] CM Progress Note CM Note CM Note Notes: 06/21/2017 Case Management Note Faxed updates to Jayde at [facility]. Jayde has accepted pt once stools are more formed. Case management d/c poc: to [facility] for 30 day stay. Case Management to follow. Date Signed: 06/21/2017 02:20 PM Electronically Signed By:Norma Flannery RN [facility] KATELYN Acuity / Level of Answers: Yes Care: Did the patient have an inpatient admission? Comorbidities - select Answers: Cerebrovascular disease all that apply (CVA, TIA, aneurysms, vasc ular dementia) Other Notes: HTN, Hyperlipidemia # of Emergency department Answers: 1-2 visits in the last 6 months Social determinants Answers: History of substance abuse (ETOH, street drugs, prescription drugs, etc.) Homelessness (street, [place] [facility]) Lack of community resources and/or lack of social support (no pcp, lives alone, transportation, jose d) Score: 16 Date Signed: 06/21/2017 04:31 PM Electronically Signed By:Norma Flannery RN [facility] CM Progress Note CM Note CM Note Notes: Spoke w/MICROBIOLOGY LABORATORY MANAGER and ID [facility] not prepared to take pt on precautions, they do not have a private room. Pt only on droplet precautions b/c still in hospital but per MICROBIOLOGY LABORATORY MANAGER, will not need at SNF. Pt also on precautions for Cdiff and stools not formed yet, which [facility] also would like, dc date unclear, updates sent to [facility]. DC Plan: [facility] Date Signed: 06/24/2017 05:04 PM Electronically Signed By:Liz Thrasher RN [facility] CM Progress Note CM Note CM Note Notes: Patient had been accepted to [facility] pending medicaid. Discharge written. Unable to accommodate request for private rooms (they have none per Administator Jayde) so discharge canceled Picc had been puled [facility] Medicine aware. Plan is to watch overnight to ensure stools are formed and not liquid and plan to dc to semi-private tomorrow as long as asymptomatic. CM to follow. Date Signed: 06/25/2017 02:29 PM Electronically Signed By:Ayah Jensen RN [facility] CM Progress Note CM Note CM Note Notes: Spoke with Christine at [facility] who states she has not received the PASRR from [facility] and cannot call for it today as they are closed for . The d/c will have to be tomorrow. Christine also states she needs the DrKeuyr to state in the transfer of care summary patient does not need droplet precautions and/or droplet isolation. If these conditions are met, we can d/c patient to [facility] in the morning. CM will follow. Date Signed: 06/26/2017 03:06 PM Electronically Signed By:Magdalena Solares LCSW Case Management Discharge Plan Note Case Management Discharge Discharge Order Complete? 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 [facility] is sending their van for picking crew supervisor at 1:30. Discharge paperwork sent via [employer]. Patient's nurse to call report. No further needs. Date Signed: 06/27/2017 10:59 AM Electronically Signed By:Magdalena Solares LCSW Intervention Information
== END 2017-06-27 13:45 | DRG 871 ==
LOC: EDUNIT# → EEVIPCON 07:39 → F3N 08:41 → OBSVTOIN 06-09 08:49 → F2N 06-09 10:39 → F2W 06-11 15:06 → F3E 06-21 17:57
PROVIDERS: ADMIT Student in an Organized Health Care Education/Training Program; ATTEND Student in an Organized Health Care Education/Training Program
PROC: 02HV33Z Insertion of Infusion Device into Superior Vena Cava, Percutaneous Approach (ICD-10-PCS; principal; 2017-06-09)
DX: A41.89 Other specified sepsis (principal); R65.21 Severe sepsis with septic shock; J10.00 Influenza due to other identified influenza virus with unspecified type of pneumonia; J96.00 Acute respiratory failure, unspecified whether with hypoxia or hypercapnia; A04.72 Enterocolitis due to Clostridium difficile, not specified as recurrent; D64.9 Anemia, unspecified; I10 Essential (primary) hypertension; E87.5 Hyperkalemia; E87.6 Hypokalemia; E83.42 Hypomagnesemia; Z72.0 Tobacco use; Z59.0 Homelessness; Z86.73 Personal history of transient ischemic attack (TIA), and cerebral infarction without residual deficits
CPT/HCPCS: 80305; 86704-90; 86708-90; 86709-90; 92523-GN; 97116-GP; 97162-GP; 97166-GO; 97530-GO; 97530-GP; 97532-GN; 97535-GO; A9585; C1751; G0378; G0472; G0480; J0610; J0692; J0696; J1650; J1940; J1956; J2405; J2543; J2930; J3370; J3475; J7512; J7613